=== PATIENT | male | born 1940 | race Caucasian/White ===

== ENCOUNTER 2018-09-09 00:45 | Outpatient (CLI) | payer MEDICARE, OTHER, SELFPAY ==
--- NOTE | 2018-09-09 08:30 | DI.MRI_ITS ---
SYMPTOM/DIAGNOSIS: LT CERVICALGIA, CHRONIC NECK PAIN CERVICAL SPINE MRI: Routine noncontrast examination. Comparison is made with 11/15/14. There is normal signal in the spinal cord. No evidence of tonsillar ectopia is seen. At C 7-T 1, there is no focal disc herniation, central spinal canal or significant neural foraminal stenosis. At C 6-7, there are mild degenerative changes of the uncovertebral joints bilaterally resulting in mild narrowing of the neural foramen bilaterally. No focal disc herniation or central spinal canal stenosis is seen. At C 5-6, there is mild prominence of the osteophyte disc complex with effacement of the anterior subarachnoid space. There are hypertrophic changes of the uncovertebral joints bilaterally causing moderate right and mild to moderate left neural foraminal stenosis. At C 4-5, there is prominence of the osteophyte disc complex effacing the anterior subarachnoid space causing mild flattening of the spinal cord. There is normal signal in the spinal cord. There are degenerative changes of the uncovertebral joints resulting in mild narrowing of the neural foramen, left greater than right. At C 3-4, there are hypertrophic changes of the uncovertebral joints on the left causing moderately severe left neural foraminal stenosis. No significant right neural foraminal stenosis or central spinal canal stenosis is seen. C 2-3 shows no focal disc herniation, central spinal canal or significant neural foraminal stenosis. Marrow signal is within normal limits. 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
== END 2018-09-09 01:05 ==
PROVIDERS: PCP Family Medicine; Visit Provider Nurse Practitioner Family
DX: M54.2 Cervicalgia (principal); M47.812 Spondylosis without myelopathy or radiculopathy, cervical region; M48.02 Spinal stenosis, cervical region
CPT/HCPCS: 72141

== ENCOUNTER 2018-09-16 09:30 | Outpatient (CLI) | payer MEDICARE, OTHER, SELFPAY ==
--- NOTE | 2018-09-16 06:00 | DI.RAD_ITS ---
SYMPTOM/DIAGNOSIS: CERVICAL RADICULOPATHY. C-ARM FLUOROSCOPY CERVICAL SPINE: Fluoroscopy Time: 53.5 sec Fluoroscopy was provided for guidance of Pain Clinic injection. Please see procedure note for details.
[2018-09-16 09:34] VITALS: BP 141/78; PULSE 72; RESP 18; TEMP 36.1; O2SAT 98
--- NOTE | 2018-09-16 10:30 | PDOC.PAIN ---
Pain Clinic Procedure Note Current Active Problems Problem Status Onset Cervical radiculitis Acute Cervical Epidural Steroid Injection NICK Barnett RAI has been referred to the [facility] for cervical epidural steroid injection. COMMENTS: He has had this procedure twice before (07/23/17 and 07/26/2016) with excellent results. RAI was interviewed and the medical record reviewed. There were no medical, pharmacologic, radiographic or other structural contraindications to attempting fluoroscopically guided epidural steroid injection. Risks and expected side effects as well as potential benefit of the procedure were reviewed with RAI , and RAI voiced concerns addressed. The printed consent form was signed and witnessed. Standard time-out procedure was performed. The patient was placed in the prone position on the fluoroscopy table and automated blood pressure cuff and pulse oximeter applied. The skin entry point for entering the epidural space by a midline C7-T1 interlaminar approach was identified under fluoroscopy and marked. Following thorough Chlorhexadine preparation of the skin and draping and 1% lidocaine infiltration of the skin entry point and subcutaneous tissues, an 18 gauge Tuohy needle was placed under fluoroscopic guidance and with loss of resistance technique into the C7-T1 epidural space. Upon needle placement and loss of resistance there were no paresthesiae or return of blood or CSF through the needle. A total of 4 cc of Omnipaque 240 was injected with clear epidural spread in the A/P, lateral and oblique views. He had no clear loss of resistence and I did have to feel my way down to the epidural space with the use of the Omnipaque. This required the use of far more Omnipaque and uncharacteristic AP and lateral images. 15 mg of preservative free Dexomethasone was injected with no unusual discomfort expressed by RAI. This was flushed with 1 cc of normal saline. The needle was removed without difficulty. RAI 's vital signs were stable throughout the procedure and were as recorded in the docflowsheet by the nursing staff. Follow up plans and appointments were discussed with the RAI. Post procedure instruction was given as documented in nursing documentation and having met discharge criteria, RAI was discharged from the [facility]. COMMENTS: This procedure can be completed up to 3 times per 12 months if this is helpful. I did also give him the Treat your own neck book to help him with neck exercises at home. CC: Analia Deras
[2018-09-16] MEDS: Dexamethasone Sod. Phos./Pres-Free 10 MG/ML VIAL IJ (10:44)
[2018-09-16] MEDS: Omnipaque 240 MG/ML 50 ML BTL IJ (10:44)
[2018-09-16 10:45] VITALS: BP 128/71; PULSE 61; RESP 18; O2SAT 99
== END 2018-09-16 09:50 ==
PROVIDERS: PCP Family Medicine; Visit Provider Preventive Medicine Occupational Medicine
DX: M54.12 Radiculopathy, cervical region (principal)
CPT/HCPCS: 62321; 72040; Q9967

== ENCOUNTER 2018-12-05 11:01 | Outpatient (REF) | payer MEDICARE, SELFPAY ==
[2018-12-05 12:20] LABS: Anion Gap 7.7 mmol/L (3-11); BUN 22 mg/dL (7-18); CO2 27.3 mmol/L (21.0-32.0); CREATININE 1.15 mg/dL (0.70-1.30); Chloride 104 mmol/L (98-107); Glucose 93 mg/dL (70-100); Potassium 4.8 mmol/L (3.5-5.1); Sodium 139 mmol/L (136-145)
[2018-12-08 10:56] LABS: PSA, Screening <0.1 ng/ml (0-6.5)
== END 2018-12-05 11:21 ==
LOC: NCHCN 11:01
PROVIDERS: PCP Family Medicine; Visit Provider Family Medicine
DX: M54.5 Low back pain (principal); Z12.5 Encounter for screening for malignant neoplasm of prostate; Z79.899 Other long term (current) drug therapy
CPT/HCPCS: 80048; 84153

== ENCOUNTER 2019-05-21 12:42 | Outpatient (REF) | payer MEDICARE, SELFPAY ==
[2019-05-22 08:32] LABS: PSA, Diagnostic <0.1 ng/ml (0-6.5)
== END 2019-05-21 13:02 ==
LOC: NCHCN 12:42
PROVIDERS: PCP Family Medicine; Visit Provider Family Medicine
DX: Z85.46 Personal history of malignant neoplasm of prostate (principal)
CPT/HCPCS: 84153

== ENCOUNTER 2019-06-09 01:20 | Outpatient (CLI) | payer MEDICARE, SELFPAY ==
--- NOTE | 2019-06-09 07:29 | DI.US_ITS ---
EXAM: US AAA SCREENING CLINICAL HISTORY: SCREENING FOR AAA, FORMER SMOKER,Z87.891 TECHNIQUE: Ultrasound performed using standard protocol. COMPARISON: No exams were available for comparison FINDINGS: Calcification is seen along the pinto of the the aorta. The maximum diameter is 2.8 cm proximally. No aneurysm is seen. The iliac arteries measure 1.3 cm. No ascites is seen. IMPRESSION: No evidence of abdominal aortic aneurysm.
== END 2019-06-09 01:40 ==
PROVIDERS: PCP Family Medicine; Visit Provider Family Medicine
DX: Z13.6 Encounter for screening for cardiovascular disorders (principal); Z87.891 Personal history of nicotine dependence; I70.0 Atherosclerosis of aorta
CPT/HCPCS: 76706

== ENCOUNTER 2020-01-13 13:07 | Emergency (ER) | payer MEDICARE, SELFPAY ==
--- NOTE | 2020-01-13 13:09 | W.ED.GENAD ---
Discharge Plan Disposition Patient Disposition: HOME Condition: Good Discharge Details Chief Complaint: Laceration Clinical Impression: Hand laceration Primary Care Provider: Analia Deras ED Provider: Theresa Almeida Home Meds and New Rx's Prescriptions: Continued hydrocodone-acetaminophen 1 TAB tablet 1 tab PO . Q6HR PRN PRNRF: 0 lansoprazole 30 MG capsule,delayed release(DR/EC) 1 tab PO DAILY RF: 0 gabapentin 300 MG capsule 1 tab PO HS RF: 0 Discharge Instructions Instructions: Laceration (ED) Additional Instructions: Keep wound clean, dry, covered. Please keep current dressing on for the next 24 hours. After that time, please wear gloves when appropriate and first apply Band-Aid. Monitor for signs of infection getting redness, warmth, drainage, increased pain, fever/chills. If you develop these or other new/worsening symptoms please seek care urgently once again. Please return in 10 to 12 days for suture removal. Tetanus was updated today. Referrals: Analia Deras MD [Primary Care Provider] - Discharge Data Discharge Date/Time-TO BE ENTERED AT DEPARTURE: 01/13/20 14:09 Medical Decision Making Patient is a pleasant 79 year old D male presenting today with c/c of left hand laceration. 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 Tetanus is out dated, we will update this today. He denies other injury at the time of the incidence. He denies numbness/tingling. No change in strength. Nursing staff reports that when patient came in they noted fairly significant venous bleeding and hematoma to which a pressure dressing was applied. When I examined the hand, the wound appeared to be improved. No active bleeding at the time of exam. Slight swelling but this sounds to have come down after pressure dressing applications. On exam, patient hsa a 4cm laceration in the sub Q tissue. No FB or debris noted. Full ROM, no ligamentous injury noted, able to extend well in all digits. Sensation intact. We discussed risks/benefits and expected procedural steps involved in clusure. He voices understanding and wishes to proceed. Please see procedure note. Patient tolerated this well. Wound explored to base in bloodless field with no FB or debris noted. Wound edges easily reapproximated, closed with #2 horizontal mattress stitches. Patient tolerated this well. Dressing applied. Patient and i discussed wound care in depth. He was given return precautions. In particular, we discussed signs of infection and what to do if bleeding recurs. He will return in 10-12 days for suture removal. All questions and concerns were addressed, he is in agreement wiht this plan. HPI General Mode of arrival: ambulatory. Date/Time Provider Initiated Documentation: 01/13/20 13:09. Limitations to Documentation: no limitations. Information obtained by: patient and RN notes reviewed. History of Present Illness 79 year old M presents to the emergency department with the chief complaint of laceratio left hand, described as mild, and is localized to the left and upper extremity. Patient reports no radiation. Patient started experiencing this hour(s) (1) and it has been constant. No relieving factors improve symptom(s), (denies any pain, states bleeding has persisted) No exacerbating factors reported . Patient notes no other symptoms.. Patient did receive the following treatments prior to arrival, none Related Data Home Medications Medication Instructions Recorded Confirmed gabapentin 1 tab PO HS 12/22/14 01/13/20 hydrocodone-acetaminophen 1 tab PO . Q6HR PRN PRN 12/22/14 01/13/20 lansoprazole 1 tab PO DAILY 12/22/14 01/13/20 Allergies Allergy/AdvReac Type Severity Reaction Status Date / Time Sulfa (Sulfonamide AdvReac Intermediate Hives Unverified 01/13/20 13:15 Antibiotics) Review of Systems Constitutional Constitutional: Reports as per HPI, Denies chills and Denies fever(s) Musculoskeletal Musculoskeletal: Reports as per HPI Integumentary/Breasts Skin/Breast: Reports as per HPI Neurologic Neurologic: Reports as per HPI, Denies sensory deficit and Denies paresthesias FOR[facility]LY [facility], [facility] Medical History (Updated 01/13/20 @ 13:53 by VIOLA Rojas) Alcohol abuse, in remission (Chronic) Cerumen impaction (Acute) Chronic low back pain (Chronic) Erectile dysfunction (Chronic) GERD (gastroesophageal reflux disease) (Chronic) Hammer toe of left foot (Chronic) Hyperlipidemia (Chronic) Neck pain, chronic (Chronic) Personal history of prostate cancer (Chronic) Sciatica, left side (Chronic) Social History Smoking/Tobacco Use Status: Never Alcohol Intake: never Drug use: Never Substance use type: does not use Do you feel safe at home: Yes Exam Const General: cooperative, healthy appearing, comfortable, no acute distress and well developed Nutritional Appearance: average body habitus and well nourished Orientation: alert and awake Resp Effort & Inspection: normal respiratory effort, able to speak in complete sentences and no respiratory distress Cardio Rate: regular rate Rhythm: regular rhythm Skin Trauma: laceration (dorsal left hand) Neuro General: patient alert and patient awake Cognition: normal cognition Speech: speech normal Gait: normal gait Sensory Exam: no sensory deficits noted Extrem Hand/finger images: 1. 4cm laceration into the subQ tissue. Pressure dressing had been applied by nursing staff, this seems to have worked well I stopping the bleeding. He has full ROM. No ligamentous damage noted on exam. Brisk capillary refill. No FB or debris noted in wound. Deep structures are intact. Psych Appearance: grossly normal and well kempt Mental Status: mental status grossly normal Speech and Movement: speech and movement normal Procedures Laceration Laceration 1: Site: hand Side (If applicable): left Size (cm): 4 Description: linear Depth: simple, single layer Local Anesthetic: Lidocaine 1% and with Epi Amount of anesthesia used (mL): 4 Pre-repair: wound explored, irrigated extensively and deep structures intact Skin layer closed with: nylon Size (cm): 5-0 Number of sutures: 2 Technique: horizontal mattress
[2020-01-13 13:11] VITALS: BP 126/77; PULSE 78; RESP 14; TEMP 36.7; O2SAT 96
[2020-01-13 14:05] VITALS: BP 127/81; PULSE 78; RESP 16; TEMP 36.7; O2SAT 95
== END 2020-01-13 14:09 | disposition home or self-care (01) ==
PROVIDERS: Emergency Provider Physician Assistant; PCP Family Medicine
DX: S61.412A Laceration without foreign body of left hand, initial encounter (principal); W28.XXXA Contact with powered lawn mower, initial encounter
CPT/HCPCS: 12002; 90471

== ENCOUNTER 2020-01-26 08:28 | Emergency (ER) | payer MEDICARE, SELFPAY ==
[2020-01-26 08:32] VITALS: BP 141/77; PULSE 72; RESP 16; TEMP 36.7; O2SAT 99
--- NOTE | 2020-01-26 08:38 | W.ED.GENAD ---
Discharge Plan Disposition Patient Disposition: HOME Condition: Improving Discharge Details Chief Complaint: SutureRem Clinical Impression: Encounter for removal of sutures Primary Care Provider: Analia Deras ED Provider: Jonathon Boyce Home Meds and New Rx's Prescriptions: Continued hydrocodone-acetaminophen 1 TAB tablet 1 tab PO . Q6HR PRN PRNRF: 0 lansoprazole 30 MG capsule,delayed release(DR/EC) 1 tab PO DAILY RF: 0 gabapentin 300 MG capsule 1 tab PO HS RF: 0 Discharge Instructions Additional Instructions: Return for any acute concerns. Resume normal routine and activities. Continue your regular medications. Steri-Strips will slowly curl and wear off over the next 3 to 7 days time. Medical Decision Making 79-year-old male presents for uneventful suture removal x2 in left hand laceration that is healed nicely since being seen on January 12. He is stable for discharge home at this time. HPI General Mode of arrival: ambulatory. Date/Time Provider Initiated Documentation: 01/26/20 08:32. Limitations to Documentation: no limitations. Information obtained by: patient. History of Present Illness 79 year old M presents to the emergency department with the chief complaint of Left hand suture removal, and is localized to the left and upper extremity. Patient did receive the following treatments prior to arrival, none Related Data Home Medications Medication Instructions Recorded Confirmed gabapentin 1 tab PO HS 12/22/14 01/26/20 hydrocodone-acetaminophen 1 tab PO . Q6HR PRN PRN 12/22/14 01/26/20 lansoprazole 1 tab PO DAILY 12/22/14 01/26/20 Allergies Allergy/AdvReac Type Severity Reaction Status Date / Time Sulfa (Sulfonamide AdvReac Intermediate Hives Unverified 01/26/20 08:34 Antibiotics) General Stated Complaint: SutureRem TUNDE: 5 Review of Systems Narrative: No other complaints. REPLACED BY [facility] Medical History (Updated 01/26/20 @ 08:38 by Jonathon Boyce MD) Alcohol abuse, in remission (Chronic) Cerumen impaction (Acute) Chronic low back pain (Chronic) Erectile dysfunction (Chronic) GERD (gastroesophageal reflux disease) (Chronic) Hammer toe of left foot (Chronic) Hyperlipidemia (Chronic) Neck pain, chronic (Chronic) Personal history of prostate cancer (Chronic) Sciatica, left side (Chronic) Social History Smoking/Tobacco Use Status: Never Alcohol Intake: never Drug use: Never Substance use type: does not use Do you feel safe at home: Yes Exam Narrative Exam Narrative: Awake alert and in no acute distress. The left hand has 2 horizontal mattress sutures, a well-healed wound, no surrounding erythema or fluctuance, it is nontender. Course Vital Signs Vital signs: Vital Signs Temperature 36.7 C 01/26/20 08:32 Pulse 72 01/26/20 08:32 Respiratory Rate 16 01/26/20 08:32 Blood Pressure 141/77 H 01/26/20 08:32 Pulse Oximetry 99 01/26/20 08:32 Temperature 36.7 C 01/26/20 08:32 Temperature Source Skin 01/26/20 08:32 Pulse 72 01/26/20 08:32 Respiratory Rate 16 01/26/20 08:32 Respiratory Effort Non-Labored 01/26/20 08:32 Blood Pressure 141/77 H 01/26/20 08:32 Blood Pressure Position Sitting 01/26/20 08:32 Pulse Oximetry 99 01/26/20 08:32 Oxygen Delivery Method Room Air 01/26/20 08:32 Oxygen Flow Rate 0 01/26/20 08:32 Pain Level 0 01/26/20 08:32
== END 2020-01-26 08:48 | disposition home or self-care (01) ==
PROVIDERS: Emergency Provider Emergency Medicine; PCP Family Medicine
DX: Z48.02 Encounter for removal of sutures (principal); S61.412D Laceration without foreign body of left hand, subsequent encounter; W28.XXXD Contact with powered lawn mower, subsequent encounter

== ENCOUNTER 2020-08-01 20:55 | Outpatient (REF) | payer MEDICARE, SELFPAY ==
[2020-08-02 17:44] LABS: PSA, Screening <0.1 ng/mL (0.0-6.5)
== END 2020-08-01 21:15 ==
LOC: NCHCN 20:55
PROVIDERS: PCP Family Medicine; Visit Provider Family Medicine
DX: Z85.46 Personal history of malignant neoplasm of prostate (principal)
CPT/HCPCS: 84153

== ENCOUNTER 2021-02-02 00:37 | Outpatient (CLI) | payer MEDICARE, SELFPAY ==
--- NOTE | 2021-02-02 | DI.MRI_ITS ---
Exam(s) MR BRAIN WO EXAM: MR BRAIN WO CLINICAL HISTORY: H/O TIA,Z86.73,,TIA,G45.9 TECHNIQUE: Multiplanar multisequence MRI of the brain was performed. COMPARISON: No exams were available for comparison FINDINGS: CEREBRAL PARENCHYMA: There is no evidence of intracranial hemorrhage, mass effect, or shift of midline structures. There are no extra-axial fluid collections. Ventricles are not enlarged or shifted. There is no significant focal signal abnormality in the cerebellar hemispheres nor within the pal, m idbrain, and thalami. There are few small foci of periventricular white matter signal abnormality which are probably consis tent with chronic small vessel ischemic changes. There is no significant focal signal abnormality evident on diffusion imaging to suggest acute ischem ic event. PITUITARY GLAND: No mass nor parasellar abnormality. No obvious abnormality in the cavernous sinuses. FLOW VOIDS: The expected flow void are noted. No evidence of obvious aneurysm nor obvious vascular ma lformation. PARANASAL SINUSES: The visualized paranasal sinuses appear unremarkable. No obvious finding ORBITS: No obvious findings. IMPRESSION: No acute intracranial findings on this noninfused MRI scan of the brain. There are a few subcentimeter foci of signal abnormality which are most probably consistent with acid condenser minh small vessel disease. There is no evidence of acute ischemic infarct. DATA REPOSITORY:
--- NOTE | 2021-02-02 | DI.MRI_ITS ---
Exam(s) MR ANGIO NECK WO CLINICAL HISTORY: TIA,G45,9. TECHNIQUE: Magnetic resonance angiography of the vessels in the neck and intracranial arteries was p erformed on 1.5 shalom unit using [id number] sequence CONTRAST MATERIAL: None COMPARISON: None. FINDINGS: AORTIC ARCH: Bovine configuration. No obvious tight stenosis at the origin the great vessels off of the aortic arch. ANTERIOR CIRCULATION: Both common carotid arteries ascend with normal luminal diameters. No evidence of significant stenosis at the level the carotid bifurcations and proximal internal carotid arteries and the internal carotid arteries are demonstrated to be patent in both sides the neck as well as wi thin the skull base-carotid canals. POSTERIOR CIRCULATION: The vertebral arteries originated conventional fashion off of the subclavian a rteries. Vertebral arteries are both patent within the foramen transversarium with no evidence of in traluminal thrombus nor dissection. The left vertebral artery is dominant. Both vertebral arteries contribute to the formation of the basilar artery at the skull base. IMPRESSION: 1. Patent carotid arteries in the neck. No evidence of significant stenosis at the level the carotid bifurcations and proximal internal carotid arteries. No ulcerated plaque evident 2. Patent vertebral arteries in the neck. No evidence of intraluminal thrombosis nor vertebral arter y dissection. DATA REPOSITORY:
--- NOTE | 2021-02-02 | DI.MRI_ITS ---
Exam(s) MR ANGIO BRAIN WO EXAM: MR ANGIO BRAIN WO CLINICAL HISTORY: TIA,G45.9 TECHNIQUE: MR angiography of the brain was performed on 1.5 shalom unit using [id number] sequence . No IV contrast. COMPARISON: No exams were available for comparison FINDINGS: ANTERIOR CIRCULATION: Both internal carotid arteries are patent in the skull base-carotid canals as w ell as within the cavernous sinuses. Both ophthalmic arteries appear patent and originated in conven tional fashion off of the intracavernous internal carotid arteries. The supraclinoid aspects of thes e vessels are patent and nonaneurysmal. both middle cerebral arteries are patent without evidence of intraluminal thrombus and no evidence of aneurysms. both a1 segments are patent, with the left a1 s egment being dominant. anterior cerebral arteries are patent. there is no evidence of aneurysm at t he level of the anterior communicating artery. POSTERIOR CIRCULATION: At the skull base both vertebral arteries contribute to the formation of the basilar artery. Left ve rtebral artery is dominant. Vertebral arteries give off the posterior inferior cerebellar arteries a t the skull base. The basilar artery ascends to the right of midline with normal luminal diameter an d no evidence of intraluminal thrombus nor dissection. Distally it gives off the bilateral superior cerebellar arteries and above this level terminates as patent bilateral posterior cerebral arteries. There is a posterior communicating artery noted on the left side of the hwdjur-pt-Dkxhsj. There is no aneurysm of the tip of the basilar artery nor elsewhere in the thztqy-ca-Txvdjo. IMPRESSION: 1. Patent intracranial arteries as described above. The left A1 segment is dominant. The right A1 segment is significantly thinner but does exhibit flow signal. 2. There is a posterior communicating artery on the left side of the moggpt-mf-Ramvhl noted. 3. No aneurysms evident. DATA REPOSITORY:
== END 2021-02-02 00:57 ==
PROVIDERS: PCP Family Medicine; Visit Provider Family Medicine
DX: G45.9 Transient cerebral ischemic attack, unspecified (principal)
CPT/HCPCS: 70544; 70547; 70551

== ENCOUNTER → 2021-04-19 13:31 | Outpatient (BNVA) | payer MEDICARE, SELFPAY | PROVIDERS: PCP Family Medicine; Referring Provider Family Medicine; Visit Provider Psychiatry & Neurology Neurology | DX: G25.0 Essential tremor (principal); R47.1 Dysarthria and anarthria; R29.818 Other symptoms and signs involving the nervous system | CPT/HCPCS: 99215 ==

== ENCOUNTER 2021-07-07 14:09 | Outpatient (REF) | payer MEDICARE, SELFPAY ==
[2021-07-07 15:16] LABS: HCT 41.7 % (40.0-50.0); HGB 13.4 g/dL (13.5-17.5); MCH 29.3 pg (27.0-33.0); MCHC 32.1 % (32.0-36.0); MPV 11.1 fL (8.0-11.0); Platelet Count 202 10^3/uL (130-400); RBC 4.58 10^6/uL (4.36-5.78); RDW 12.9 % (11.8-14.1); RDW-SD 42.6 fL; WBC 5.09 10^3/uL (4.4-10.8)
[2021-07-07 15:52] LABS: ALT 21 U/L (16-63); AST 17 U/L (15-37); Albumin 3.9 g/dL (3.4-5.0); Alkaline Phosphatase 79 U/L (46-116); Anion Gap 7.4 mmol/L (3-11); BUN 20 mg/dL (7-18); Bilirubin, Total 0.5 mg/dL (0.2-1.0); CO2 28.6 mmol/L (21.0-32.0); CREATININE 1.1 mg/dL (0.70-1.30); Calcium 8.8 mg/dL (8.5-10.1); Chloride 106 mmol/L (98-107); Glucose 94 mg/dL (74-106); Lipase 96 U/L (73-393); Potassium 4.8 mmol/L (3.5-5.1); Sodium 142 mmol/L (136-145); TSH (W/Ref FT4) 1.87 uIU/mL (0.36-3.74); Total Protein 6.6 g/dL (6.4-8.2)
[2021-07-07 16:43] LABS: Vitamin B12 271 pg/mL (193-986)
[2021-07-07 22:53] LABS: PSA, Screening <0.1 ng/mL (0.0-6.5)
== END 2021-07-07 14:10 | disposition home or self-care (01) ==
LOC: NCHCN 14:09
PROVIDERS: PCP Family Medicine; Visit Provider Family Medicine
DX: R63.4 Abnormal weight loss (principal); Z85.46 Personal history of malignant neoplasm of prostate; R10.12 Left upper quadrant pain; Z12.5 Encounter for screening for malignant neoplasm of prostate
CPT/HCPCS: 80053; 83690; 84153; 85027; 82607; 84443

== ENCOUNTER 2021-07-25 00:12 | Outpatient (CLI) | payer MEDICARE, SELFPAY ==
[2021-07-25] MEDS: Omnipaque 350 MG/ML 50 ML BTL PO (08:08)
[2021-07-25] MEDS: Breeza Beverage 473 ML BTL PO ×2 (08:08→08:09)
--- NOTE | 2021-07-25 09:00 | DI.CT_ITS ---
Exam(s) CT ABDOMEN PELVIS W EXAM: CT ABDOMEN PELVIS W CLINICAL HISTORY: LUQ ABD PAIN R10.12, WEIGHT LOSS R63.4 TECHNIQUE: Imaging Protocol: Axial computed tomography images with coronal and sagittal reformatted images were created and reviewed CONTRAST MATERIAL: Intravenous: Omnipaque 350 Contrast volume:100 mL. Oral: Yes COMPARISON: No exams were available for comparison FINDINGS: The examination is limited due to patient motion artifact. ABDOMEN: Lung Bases: There is scarring or atelectasis in the lung bases. Liver: Normal density. No measurable mass. There is focal fatty infiltration near the delete round li gament. Portal, Superior Mesenteric, and Splenic Veins: Unremarkable. Gallbladder and Biliary Tract: No radiodense calculus or dilation. Pancreas: Normal density, no abnormal calcifications or inflammatory process. Spleen: Normal. Adrenals: Bilateral adrenal nodularity. Likely reflecting adrenal adenomas. Kidneys: Normal size, contour and axis. No radiodense stones or obstructive uropathy. No masses seen. Abdominal Aorta: Abdominal portion non-dilated. Atherosclerosis. Bowel: No obstruction or bowel wall thickening. No evidence of appendicitis. There is a moderate jorden unt of stool throughout the colon which may represent constipation. There are few scattered diverticu la in the sigmoid colon, but no evidence of acute diverticulitis. Peritoneal Cavity: There is a trace amount of ascites in the pelvis. No free air. Lymph Nodes: Within normal limits. Bones: Within normal limits for the patient's age. Soft Tissues: Bilateral gynecomastia. There is soft tissue in the left inguinal region, suggestive of a prior left inguinal hernia repair. PELVIS: Bladder: Symmetric distention, no gross wall thickening. Reproductive Organs: Unremarkable as visualized. Lymph Nodes: Within normal limits. Bones: Within normal limits for the patient's age. IMPRESSION: 1. No evidence of an abdominal or pelvic mass or adenopathy. 2. Trace amount of free ascites in the pelvis. 3. Sigmoid diverticulosis, but no evidence of acute diverticulitis. 4. Findings suggestive of constipation. RADIATION DOSE DELIVERED: 1,205.14mGy.cm Total DLP DATA REPOSITORY: All CT scans at this facility are submitted to the National Radiology Data Registry (NRDR) Dose Index Registry (DIR) with the [employer] (ACR). RADIATION OPTIMIZATION: All CT scans at this facility use at least one of these dose optimization te chniques: automated exposure control; mA and/or kV adjustment per patient size (includes targeted exa ms where dose is matched to clinical indication); or iterative reconstruction.
[2021-07-25] MEDS: Omnipaque 350 MG/ML 100 ML BTL IJ (09:11)
[2021-07-25] MEDS: Normal Saline Flush 10 ML SYR IVP (09:12)
== END 2021-07-25 00:32 ==
PROVIDERS: PCP Family Medicine; Visit Provider Family Medicine
DX: R10.12 Left upper quadrant pain (principal); R63.4 Abnormal weight loss; K57.30 Diverticulosis of large intestine without perforation or abscess without bleeding
CPT/HCPCS: 74177; J3490; Q9967

== ENCOUNTER → 2022-01-30 01:29 | Outpatient (CLI) | payer MEDICARE, SELFPAY ==
--- NOTE | 2022-01-30 | DI.NM_ITS ---
APPROVED REPORT Exam: Exercise Treadmill Patient Location: Out-Patient Room/Bed: Stress Nurse: MARYLOU Alas Ordering Provider:SOFÍA ADKINS, Contact Number: [phone] BMI: 23.05 Baseline Rhythm: Sinus Rhythm Comment: flipped T wave aVL Indications: Exertional CP Medical History Medical History: ETOH, ED, GERD, HLD Cardiac Medications: Lansoprazole, ASA Allergies: Sulfa Cardiac Risk Factors: HLD Previous Cardiac Procedures: None Pretest Chest Pain Characteristics: None Exercise History: Sedentary Physical Disabilities: None Lung Sounds: Clear to auscultation Heart Sounds: Regular Stress Test Details Test: Exercise stress testing was performed using a Erick protocol. Nuclear Acquisition: Rest Tc-99m/Stress Tc-99m 1 day Rest Isotope: Tc-99m Sestamibi. Dose: 9.7 Date: 01/30/2022 Injection Time: 0915 Stress Isotope: Tc-99m Sestamibi. Dose: 33 Date: 01/30/2022 Injection Time: 1015 HR Resting HR Supine: 63 bpm Max Heart Rate (APMHR): 141.254928 bpm Resting HR Standin bpm Target HR (85% APMHR): 119.551677 bpm Max HR Achieved: 129 bpm % of APMHR: 91.49 Recovery HR: 73 bpm HR response to stress: Normal HR response to stress BP Resting BP Supine: 152/80 mmHg Resting BP Standin/78 mmHg Max BP: 190/76 mmHg Recovery BP: 152/78 mmHg BP response to stress: Normal blood pressure response to stress. ECG Resting ECG: Sinus Rhythm Ectopy: none Comment: flipped T wave aVL Stress ECG: Sinus Rhythm, Sinus Tachycardia ST Change: No significant ST segment changes noted Arrhythmia: VPC's Comment: rare PVC's Recovery ECG: Sinus Rhythm Recovery ST Change: No significant ST segment changes noted Recovery Arrhythmia: VPC Clinical Reason for Termination: Fatigue Stress Symptoms: none Exercise duration: 4 min59 sec Highest Stage Reached: Stage 2: 2.5 mph at 12% grade. Exercise capacity: 7.02 METs Angina Score: None [place] Treadmill Score: 4.6 Rate Pressure Product: [id number] Stress ECG Conclusion 1. The resting electrocardiogram was within normal limits 2. Patient exercised on the Erick protocol and completed a workload of 7.02 METS 3. Normal heart rate and blood pressure response to exercise. The patient achieved 91% of predicted heart rate for age 4. There was no electrocardiographic evidence of myocardial ischemia 5. Rare PVCs were noted 6. See MPI report [place] Treadmill Score is 4.6 which is Moderate risk. Stress Test Summary STAGE Time (mins) Speed (mph) Grade (%) HR BP SYMPTOMS METS Supine 63 152/80 Standing 82 130/78 1 3 1.7 10 108 168/78 4.6 1 min recovery 107 190/76 3 min recovery 73 168/82 6 min recovery 73 152/78 MPI Conclusion Normal myocardial perfusion. There is no ischemia or prior infarction EF 60%, normal wall motion Radiologist Interpretation Radiologist agrees with Resource Technician's Interpretation. Radiologist Interpretation by: Lorenzo Salmeron MD Interpretation Date/Time: 02/01/2022 08:15:07
== END ==
PROVIDERS: PCP Family Medicine; Visit Provider Family Medicine
DX: R07.89 Other chest pain (principal)
CPT/HCPCS: 78452; 93016; 93018; 93017

== ENCOUNTER 2022-04-11 15:58 | Outpatient (REF) | payer MEDICARE, SELFPAY ==
[2022-04-11 16:35] LABS: HGB 14.8 g/dL (13.5-17.5); MCH 29.7 pg (27.0-33.0); MCHC 33.6 % (32.0-36.0); MCV 88 fL (80-95); MPV 11.4 fL (8.0-11.0); Platelet Count 222 10^3/uL (130-400); RBC 4.99 10^6/uL (4.36-5.78); RDW 13.2 % (11.8-14.1); RDW-SD 42.5 fL
[2022-04-11 17:14] LABS: Ferritin 81 ng/mL (26-388); TSH (W/Ref FT4) 2.98 uIU/mL (0.36-3.74)
== END 2022-04-11 15:59 | disposition home or self-care (01) ==
LOC: NCHCN 15:58
PROVIDERS: PCP Family Medicine; Visit Provider Family Medicine
DX: D64.9 Anemia, unspecified (principal)
CPT/HCPCS: 85027; 82728; 84443

== ENCOUNTER 2022-07-11 13:43 | Outpatient (REF) | payer MEDICARE, SELFPAY ==
[2022-07-11 15:17] LABS: Folate 6.5 ng/mL (8.6-20.0); Vitamin B12 1042 pg/mL (193-986)
[2022-07-12 09:42] LABS: PSA, Diagnostic <0.1 ng/mL (<=6.5)
[2022-07-13 11:30] LABS: Syphilis Serology (RPR) Negative (Negative)
== END 2022-07-11 13:44 | disposition home or self-care (01) ==
LOC: NCHCN 13:43
PROVIDERS: PCP Family Medicine; Visit Provider Family Medicine
DX: E53.8 Deficiency of other specified B group vitamins (principal); R41.3 Other amnesia; Z85.46 Personal history of malignant neoplasm of prostate
CPT/HCPCS: 82607; 82746; 84153; 86592

== ENCOUNTER 2023-03-13 09:24 | Outpatient (REF) | payer MEDICARE, SELFPAY ==
[2023-03-13 20:19] LABS: ALT 19 U/L (16-63); AST 18 U/L (15-37); Albumin 4.1 g/dL (3.4-5.0); Alkaline Phosphatase 76 U/L (46-116); Anion Gap 7.1 mmol/L (3-11); BUN 22 mg/dL (7-18); Bilirubin, Total 0.7 mg/dL (0.2-1.0); CO2 27.9 mmol/L (21.0-32.0); CREATININE 1.1 mg/dL (0.70-1.30); Calcium 9.1 mg/dL (8.5-10.1); Chloride 104 mmol/L (98-107); Estimated GFR 67.86 (mL/min/1.73m2); Glucose 100 mg/dL (74-106); Potassium 5.1 mmol/L (3.5-5.1); Sodium 139 mmol/L (136-145); Total Protein 6.9 g/dL (6.4-8.2); Vitamin B12 1079 pg/mL (193-986)
[2023-03-13 20:20] LABS: Folate > 20.0 ng/mL (8.6-20.0)
== END 2023-03-13 09:25 | disposition home or self-care (01) ==
LOC: NCHCN 09:24
PROVIDERS: PCP Family Medicine; Visit Provider Family Medicine
DX: R10.12 Left upper quadrant pain (principal); D51.9 Vitamin B12 deficiency anemia, unspecified; D52.9 Folate deficiency anemia, unspecified
CPT/HCPCS: 80053; 82607; 82746

== ENCOUNTER 2024-01-23 06:17 | Inpatient (IN) | payer MEDICARE, SELFPAY ==
[2024-01-23] VITALS (8 sets, daily range): BP systolic 113–160; BP diastolic 71–87; PULSE 83–111; RESP 16–22; TEMP 36.7–37.8; O2SAT 97–99
--- NOTE | 2024-01-23 06:15 | DI.CT_ITS ---
Exam(s) CT ABDOMEN PELVIS W EXAM: CT ABDOMEN PELVIS W CLINICAL HISTORY: gi bleeding. TECHNIQUE: Imaging Protocol: Axial computed tomography images with coronal and sagittal reformatted images were created and reviewed CONTRAST MATERIAL: Intravenous: Omnipaque-350 100cc Oral: None COMPARISON: CT CT ABDOMEN PELVIS W from 07/25/2021 FINDINGS: VISUALIZED LUNG BASES: No nodules nor pleural effusions evident. Elevated left hemidiaphragm again n oted. Bilateral gynecomastia again noted. ABDOMEN: LIVER: There are no focal hepatic lesions evident. No dilated intrahepatic ducts. GALLBLADDER/BILIARY: No obvious gallbladder pathology. CBD is not dilated. PANCREAS: No evidence of pancreatic mass nor dilatation of the pancreatic duct. SPLEEN: Spleen is not enlarged. No obvious intrasplenic lesions. Splenic and portal veins are paten t. ADRENALS: There are no significant adrenal masses. KIDNEYS:No cysts evident. No solid renal masses. No calculi nor hydronephrosis.. ABDOMINAL AORTA: Abdominal aorta is not enlarged. Celiac, SMA, and inferior mesenteric arteries are patent. LYMPH NODES:There is no retroperitoneal nor paraaortic adenopathy. ABDOMINAL WALL: No evidence of significant anterior abdominal wall nor inguinal hernia. GI: There is significant colitis pattern involving the colon at and distal to the splenic flexure. A lso involving the rectum. The colon wall is thickened-edematous to 1 cm thickness. Similar findings not seen in the right-side of the colon. There is some mild a spot-moderate ascites in the pelvis w hich is most probably related to the colitis. There is no evidence of small-bowel obstruction. PELVIS: GI: Appendix difficult to identify but no evidence of obvious acute appendicitis.No evidence of sigmo id diverticulitis. LYMPH NODES: There is no intrapelvic nor inguinal adenopathy. REPRODUCTIVE: Prostate gland is surgically absent. Seminal vesicles also not identified. URINARY BLADDER: There is some diffuse bladder wall thickening probably related to cystitis or under distension. OSSEOUS: No fractures and no significant blastic nor lytic osseous lesions. Sacroiliac joints unremarkable. IMPRESSION: 1. The main acute finding here is severe acute appearing colitis of the distal half of the colon incl uding the rectosigmoid. There is small-moderate amount of ascites in the pelvis which is most probab ly related to this. There is no evidence of bowel obstruction nor free air. No evidence of signific ant diverticular disease. 2. Prostate and seminal vesicles are surgically absent. 3. Bladder wall is diffusely thickened. Either related to under distension or cystitis. Called by myself to ER physician. RADIATION DOSE DELIVERED: 995.77mGy.cm Total DLP DATA REPOSITORY: All CT scans at this facility are submitted to the National Radiology Data Registry (NRDR) Dose Index Registry (DIR) with the [employer] (ACR). RADIATION OPTIMIZATION: All CT scans at this facility use at least one of these dose optimization te chniques: automated exposure control; mA and/or kV adjustment per patient size (includes targeted exa ms where dose is matched to clinical indication); or iterative reconstruction.
[2024-01-23 06:35] LABS: Abs Immature Grans 0.04 10^3/uL (0.0-0.06); Absolute Basophil Count 0.03 10^3/uL (0.0-0.2); Absolute Eosinophil Count 0.01 10^3/uL (0.0-0.7); Absolute Lymphocyte Count 0.95 10^3/uL (1.2-3.4); Basophils % 0.2 %; Eosinophils % 0.1 %; HGB 15.4 g/dL (13.5-17.5); Immature Grans % 0.3 %; Lymphocytes % 6.8 %; MCH 29.3 pg (27.0-33.0); MCHC 33.5 % (32.0-36.0); MCV 88 fL (80-95); MPV 10.5 fL (8.0-11.0); Monocytes % 6.3 %; Neutrophils % 86.3 %; Platelet Count 216 10^3/uL (130-400); RBC 5.26 10^6/uL (4.36-5.78); RDW 13.2 % (11.8-14.1); RDW-SD 42.6 fL; WBC 13.91 10^3/uL (4.4-10.8)
--- NOTE | 2024-01-23 06:35 | ED.GENADUL_ITS ---
Discharge Plan Discharge Details Chief Complaint: Abd Prob Clinical Impression: Acute GI bleeding Primary Care Provider: Analia Deras ED Provider: Stevo Hidalgo Home Meds and New Rx's Prescriptions: No Action aspirin 81 mg tablet 81 mg PO DAILY hydrocodone-acetaminophen 1 TAB tablet 1 tab PO . Q6HR PRN PRN lansoprazole 30 MG capsule,delayed release(DR/EC) 1 tab PO DAILY folic acid 1 mg tablet 1 mg PO DAILY Patient Comments: TAKE ONE TABLET BY MOUTH EVERY DAY HPI General Date/Time Provider Initiated Documentation: 01/23/24 06:20 . HPI Narrative: 83-year-old male with no significant past medical history who does take daily aspirin presents today for evaluation of bloody diarrhea. Patient states that at lunch yesterday he began feeling like he had to go to the bathroom, and then had a few episodes of diarrhea that were bright red and bloody. This continued throughout the rest of the day and the evening with the most recent being about an hour ago. He denies any recent foreign travel, drinking from ponds or streams, or antibiotic use. He had a colonoscopy 1 year ago at [facility] and this was unremarkable. He denies any history of GI bleed in the past. He also admits to mild abdominal achiness and pain has been going on today. He denies any vomiting. He does admit to some pain when having a bowel movement near his rectum. He denies any hard stool. No other complaints at this time. Related Data Home Medications Medication Instructions Recorded Confirmed hydrocodone 5 mg-acetaminophen 325 1 tab PO . Q6HR PRN PRN 12/22/14 01/23/24 mg tablet lansoprazole 30 mg capsule,delayed 1 tab PO DAILY 12/22/14 01/23/24 release aspirin 81 mg tablet 81 mg PO DAILY 02/01/21 01/23/24 folic acid 1 mg tablet 1 mg PO DAILY 01/23/24 01/23/24 Allergies Allergy/AdvReac Type Severity Reaction Status Date / Time Sulfa (Sulfonamide AdvReac Intermediate Hives Unverified 09/20/21 09:25 Antibiotics) General Stated Complaint: Abd Prob TUNDE: 3 Review of Systems All systems reviewed & are unremarkable except as noted in HPI and below Exam Narrative Exam Narrative: 1.Const: Well-nourished, Well-developed, appearing stated age 2.Eyes: PERRL, no conjunctival injection, and symmetrical lids. 3.ENT: Atraumatic external nose and ears. Moist MM. Neck: Symmetric, trachea midline, No thyromegaly. 4.CVS: +S1/S2, No murmurs or gallops. Peripheral pulses 2+ and equal in all extremities. Brisk capillary refill in all extremities. 5.RESP: Unlabored respiratory effort. Clear to auscultation bilaterally. No wheezes rales or rhonchi 6.GI: Soft, nondistended, no guarding or rebound. Mild tenderness throughout, especially in the mid abdominal region. Rectal exam was performed with female nurse at bedside. No gross blood at this time. No large hemorrhoids. 7.MSK: Normocephalic/Atraumatic, Extremities w/o deformity or ttp No cyanosis or clubbing, Normal movement of all extremities 8.Skin: Warm, Dry. No rashes or lesions. 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 Sensation grossly intact, no focal neurologic deficits. 10.Psych: (AAO) x3. Appropriate mood and affect Course Vital Signs Vital signs: Vital Signs Temperature 36.8 C 01/23/24 06:21 Pulse 111 H 01/23/24 06:21 Respiratory Rate 22 01/23/24 06:21 Blood Pressure 140/87 01/23/24 06:21 Pulse Oximetry 97 01/23/24 06:21 Temperature 36.7 C 01/23/24 06:26 Temperature Source Temporal Artery Scan 01/23/24 06:26 Pulse 100 H 01/23/24 06:26 Respiratory Rate 22 01/23/24 06:26 Respiratory Effort Normal, Non-Labored 01/23/24 06:26 Blood Pressure 140/87 01/23/24 06:21 Blood Pressure Position Sitting 01/23/24 06:26 Pulse Oximetry 97 01/23/24 06:26 Oxygen Delivery Method Room Air 01/23/24 06:26 Oxygen Flow Rate 0 01/23/24 06:21 Pain Level 3 01/23/24 06:26 Medical Decision Making 83-year-old male with no significant past medical history who does take daily aspirin presents today for evaluation of bloody diarrhea. Patient states that at lunch yesterday he began feeling like he had to go to the bathroom, and then had a few episodes of diarrhea that were bright red and bloody. This continued throughout the rest of the day and the evening with the most recent being about an hour ago. He denies any recent foreign travel, drinking from ponds or streams, or antibiotic use. He had a colonoscopy 1 year ago at [facility] and this was unremarkable. He denies any history of GI bleed in the past. He also admits to mild abdominal achiness and pain has been going on today. He denies any vomiting. He does admit to some pain when having a bowel movement near his rectum. He denies any hard stool. No other complaints at this time. Exam demonstrates well-appearing male, mild tachycardia, mild abdominal pain throughout. Rectal exam demonstrates no gross blood at this time. Differential includes diverticulitis, GI bleed from diverticulosis, colitis, less likely proctitis or hemorrhoid. We will type and screen, get a CT scan of the abdomen, gently rehydrate, give 20 of Protonix and 20 famotidine, monitor closely and reassess. 7:31 AM Laboratory workup has returned, white count slightly elevated at 13.9, platelets and hemoglobin are normal. Mild left shift with absolute neutrophil count of 12. Electrolytes normal, creatinine 1.5 with GFR 46. BUN 26. Bilirubin slightly elevated at 1.3 which is atypical for him. Pending CAT scan. Patient did have another bloody bowel movement with minimal stool which she describes as very dark in color, and large amount of bright red blood. Patient will be signed out to my colleague Dr. Islas for follow-up on imaging. Patient will likely benefit from admission. Quality:[facility] Health Related Social Needs: No Data to Display [facility] All Active Problems (Updated 01/23/24 @ 07:32 by Stevo Hidalgo DO) Acute GI bleeding (Acute) Dysarthria (Acute) Essential tremor (Acute) Cervical radiculitis (Acute) Medical History Achilles tendinitis, right leg Alcohol abuse, in remission Personal history of prostate cancer Erectile dysfunction GERD (gastroesophageal reflux disease) Chronic low back pain Sciatica, left side Hammer toe of left foot Hyperlipidemia Surgical History S/P TURP S/P hernia repair Social History (Reviewed 01/23/24 @ 06:38 by SUSANNAH Levine Smoking/Tobacco Use Status: Former Tobacco Use Smoking risk assessment performed?: Yes Alcohol Intake: former Drug use: Never Substance use type: does not use Household members: spouse Housing: house Number of Children: 2 number of grandchildren: 3 current occupation: Retired Pets and animals: No Current gender identity: male What is your relationship status?: Panel score (0-1 are the most socially isolated patients): 1 What type of physical activity do you participate in: walking Duration: 30-45 minutes/day Frequency: 1-2 times per week Seatbelt use: sometimes Do you feel safe at home: Yes Do you feel safe in your relationship?: Yes
[2024-01-23 06:36] LABS: Absolute Monocyte Count 0.88 10^3/uL (0.1-0.8)
[2024-01-23 06:50] LABS: PTT Activated 25.4 sec (23.6-32.8); Prothrombin Time 10.5 sec (9.1-11.1)
[2024-01-23] MEDS: Normal Saline 500 ML IV (06:50)
[2024-01-23] MEDS: Famotidine 20 MG/2 ML VIAL IVP (06:50)
[2024-01-23] MEDS: Pantoprazole 40 MG VIAL IVP (06:50)
[2024-01-23 06:52] LABS: ALT 26 U/L (16-63); AST 16 U/L (15-37); Albumin 4.1 g/dL (3.4-5.0); Alkaline Phosphatase 76 U/L (46-116); BUN 26 mg/dL (7-18); Bilirubin, Total 1.3 mg/dL (0.2-1.0); CREATININE 1.5 mg/dL (0.70-1.30); Calcium 9.1 mg/dL (8.5-10.1); Chloride 103 mmol/L (98-107); Estimated GFR 46.48 (mL/min/1.73m2); Glucose 142 mg/dL (74-106); Potassium 4.3 mmol/L (3.5-5.1); Sodium 140 mmol/L (136-145); Total Protein 7.5 g/dL (6.4-8.2)
[2024-01-23] MEDS: Normal Saline - Diluent 50 ML VIAL IJ (08:09)
[2024-01-23] MEDS: Omnipaque 350 MG/ML 500 ML BTL-Imaging package IJ (08:10)
--- NOTE | 2024-01-23 09:13 | ED.PROG_ITS ---
Date of service: 01/23/24 Time of Service: 09:13 Medical Decision Making Care was signed out by Dr. Hidalgo, please see his documentation regarding initial ED presentation course. Plan at signout was to follow-up on CT and reassess patient for disposition. CT of the abdomen pelvis was interpreted by radiology:1. The main acute finding here is severe acute appearing colitis of the distal half of the colon including the rectosigmoid. There is small-moderate amount of ascites in the pelvis which is most probably related to this. There is no evidence of bowel obstruction nor free air. No evidence of significant diverticular disease. 2. Prostate and seminal vesicles are surgically absent. 3. Bladder wall is diffusely thickened. Either related to under distension or cystitis. I spoke with Dr. Salmeron who notes SMA and JOAN patent. Does not appear ischemic. Patient reassessed and notes pain has improved. He continues to have bloody stool. Plan to hospitalize for further observation. Stool cultures pending. -- I spoke with Dr. Rodriguez, discussed ED presentation course, he will admit the patient. Lab Data Lab results reviewed: Yes I reviewed the patient's lab results. Labs: Laboratory Tests Range/Units 01/23/24 01/23/24 06:30 06:49 WBC (4.4-10.8) 10^3/uL 13.91 H RBC (4.36-5.78) 10^6/uL 5.26 Hgb (13.5-17.5) g/dL 15.4 Hct (40.0-50.0) % 46.0 MCV (80-95) fL 88 MCH (27.0-33.0) pg 29.3 MCHC (32.0-36.0) % 33.5 RDW (11.8-14.1) % 13.2 Plt Count (130-400) 10^3/uL 216 MPV (8.0-11.0) fL 10.5 Immature Gran % % 0.3 Neutrophils % % 86.3 Lymphocytes % % 6.8 Monocytes % % 6.3 Eosinophils % % 0.1 Basophils % % 0.2 Nucleated RBC % (0.0-0.3) % 0.0 Absolute Neutrophils (1.2-6.7) 10^3/uL 12.00 H Absolute Lymphocytes (1.2-3.4) 10^3/uL 0.95 L Absolute Monocytes (0.1-0.8) 10^3/uL 0.88 H Absolute Eosinophils (0.0-0.7) 10^3/uL 0.01 Absolute Basophils (0.0-0.2) 10^3/uL 0.03 PT (9.1-11.1) sec 10.5 INR (0.9-1.1) 1.0 APTT (23.6-32.8) sec 25.4 Sodium (136-145) mmol/L 140 Potassium (3.5-5.1) mmol/L 4.3 Chloride (98-107) mmol/L 103 Carbon Dioxide (21.0-32.0) mmol/L 26.0 Anion Gap (3-11) mmol/L 11.0 BUN (7-18) mg/dL 26 H Creatinine (0.70-1.30) mg/dL 1.5 H Est GFR (CKD-EPI 2020) (mL/min/1.73m2) 46.48 Glucose (74-106) mg/dL 142 H Calcium (8.5-10.1) mg/dL 9.1 Total Bilirubin (0.2-1.0) mg/dL 1.3 H AST (15-37) U/L 16 ALT (16-63) U/L 26 Alkaline Phosphatase (46-116) U/L 76 Total Protein (6.4-8.2) g/dL 7.5 Albumin (3.4-5.0) g/dL 4.1 ABO/Rh A Positive Antibody Screen NEGATIVE Quality:[facility] Health Related Social Needs: No Data to Display Sign Out Sign Out Data: Sign Out Comment: Acute GI bleed, hemoglobin stable, pending CAT scan. Would likely benefit from admission. Last updated by Stevo Hidalgo DO at 01/23/24 07:36 Discharge Plan Disposition Patient Disposition: Admit to [facility] Condition: Serious Discharge Details Clinical Impression: Acute GI bleeding, Acute hemorrhagic colitis Admit Date/Time: 01/23/24 09:35 Admit Provider: Maximino Rodriguez Attending Provider: Maximino Rodriguez Primary Care Provider: Analia Deras ED Provider: Gonzales Islas Discharge Data Discharge Date/Time-TO BE ENTERED AT DEPARTURE: 01/23/24 10:25
--- NOTE | 2024-01-23 09:39 | HPE_ITS ---
Date of service: 01/23/24 Time of Service: 09:39 Assessment and Plan Assessment and plan (1) Acute GI bleeding: Status: Acute Assessment and plan: CBC in AM H&H 15 & 46 normotensive , non-tachycardic Surgical consult pending negative c-diff testing (2) Acute hemorrhagic colitis: Status: Acute Assessment and plan: As above C-diff PCR pending lactoferrin and fecal bacterial pathogen pending Procalcitonin 1.3:possible risk Will start ciprofloxacin if C-diff negative d/t age and presentation and CT Will treat C-diff with oral vanco if positive (3) JERI (acute kidney injury): Status: Acute Assessment and plan: IVF : LR at 100cc/hr , no history of CHF BMP in AM (4) Contraindication to deep vein thrombosis (DVT) prophylaxis: Status: Acute Assessment and plan: TEDs (5) Discharge planning issues: Status: Acute Assessment and plan: CM to f/u Discussed with Dr. Rodriguez History of Present Illness History of Present Illness Chief Complaint: GIB, colitis, JERI, hematochezia, diarrhea Narrative: This 83 years old male patient with a past medical history of prostate CA with prostatectomy 29 years ago, on daily aspirin presented today manage for evaluation of bloody diarrhea. The patient stated that the diarrhea started yesterday after lunch and was bright red in color and bloody; also reported multiple episodes throughout the day and evening with the most recent being about an hour prior to arrival to the ED. The patient denied recent travel abroad, drinking from ponds or streams, or antibiotic use. The patient reported having had a colonoscopy a year ago at [facility] with unremarkable results. He denied any recent history of GI bleeding but as per report from Dr. Islas the patient had a GI bleed episode when he was in his 30s. The patient admitted to general abdominal achiness and pain that have been ongoing today, reported some pain around is red tongue during his bowel movements. The patient denied nausea vomiting, constipation. In the ED the patient appeared to be mildly tachycardic with diffuse mild abdominal pain, no gross blood found during rectal exam. Lab in the ED were remarkable for WBC of 13.9. Mild left shift with absolute neutrophil count of 12, creatinine at 1.5 with a GFR of 46 and a BUN of 26, bilirubin slightly elevated at 1.3. The abdominal and pelvic CT showed severe colitis of the distal half of the colon including the rectosigmoid, small moderate amount of ascites in the pelvis, without evidence of bowel obstruction or free air plan the prostate was absent and the bladder pinto were diffusely thickened correction to be made to under distention or cystitis. The hospitalist was called and the patient was admitted to the medical surgical floor for evaluation and management of gastrointestinal bleeding, colitis, JERI, hematochezia, diarrhea, and abdominal pain. The hospitalist after reviewing the chart ordered a C C. difficile PCR on the stools in addition to the fecal stool pathogen testing ordered by the ED provider. PFSH All Active Problems (Updated 01/23/24 @ 12:39 by Marley Diaz APRN) Discharge planning issues (Acute) Contraindication to deep vein thrombosis (DVT) prophylaxis (Acute) JERI (acute kidney injury) (Acute) Colitis (Acute) Acute hemorrhagic colitis (Acute) Acute GI bleeding (Acute) Dysarthria (Acute) Essential tremor (Acute) Cervical radiculitis (Acute) Medical History Achilles tendinitis, right leg Alcohol abuse, in remission Personal history of prostate cancer Erectile dysfunction GERD (gastroesophageal reflux disease) Chronic low back pain Sciatica, left side Hammer toe of left foot Hyperlipidemia Surgical History S/P TURP S/P hernia repair Social History Smoking/Tobacco Use Status: Former Tobacco Use Smoking risk assessment performed?: Yes Alcohol Intake: former Drug use: Never Substance use type: does not use Household members: spouse Housing: house Number of Children: 2 number of grandchildren: 3 current occupation: Retired Pets and animals: No Current gender identity: male What is your relationship status?: Panel score (0-1 are the most socially isolated patients): 1 What type of physical activity do you participate in: walking Duration: 30-45 minutes/day Frequency: 1-2 times per week Seatbelt use: sometimes Do you feel safe at home: Yes Do you feel safe in your relationship?: Yes Meds Allergies and Home Medications Allergies Allergy/AdvReac Type Severity Reaction Status Date / Time Sulfa (Sulfonamide AdvReac Intermediate Hives Unverified 09/20/21 09:25 Antibiotics) Home Medications Medication Instructions Recorded Confirmed Type hydrocodone 5 mg-acetaminophen 325 1 tab PO . Q6HR PRN PRN 12/22/14 01/23/24 History mg tablet lansoprazole 30 mg capsule,delayed 1 tab PO DAILY 12/22/14 01/23/24 History release aspirin 81 mg tablet 81 mg PO DAILY 02/01/21 01/23/24 History folic acid 1 mg tablet 1 mg PO DAILY 01/23/24 01/23/24 History Exam Narrative Exam Narrative: Constitutional The patient is sitting in chair. The patient is well groomed without acute distress and has average body habitus/is obese/ is thin. HENMT: Head is atraumatic, normocephalic, no lymphadenopathy. Facial structures with normal appearance Neck: Normal ROM, no meningeal signs Neuro:alert and oriented to self, person, place, time and situation. No neurological focal deficit Resp: Clear lung bilaterally Cardio: regular rhythm, S1, S2, no murmur bilateral radial and dorsalis pedis pulses are positive GI: Abdomen is not distended, soft and with locsl tenderness to left lower quadrant, bowel sounds are present : Negative Costovertebral angle tenderness Back/spine/Pelvis: chronic lower back pain s/p fall years ago Integumentary: No skin lesions or rash Extremities: strength 5/5 to bilateral lower and upper extremities Psych: RASS 0, congruent mood and normal affect. Results Labs 01/23/24 06:30 01/23/24 06:30 Labs: Laboratory Results - last 24 hr 01/23/24 01/23/24 06:30 06:49 WBC 13.91 H RBC 5.26 Hgb 15.4 Hct 46.0 MCV 88 MCH 29.3 MCHC 33.5 RDW 13.2 Plt Count 216 MPV 10.5 Immature Gran % 0.3 Neutrophils % 86.3 Lymphocytes % 6.8 Monocytes % 6.3 Eosinophils % 0.1 Basophils % 0.2 Nucleated RBC % 0.0 Absolute Neutrophils 12.00 H Absolute Lymphocytes 0.95 L Absolute Monocytes 0.88 H Absolute Eosinophils 0.01 Absolute Basophils 0.03 PT 10.5 INR 1.0 APTT 25.4 Sodium 140 Potassium 4.3 Chloride 103 Carbon Dioxide 26.0 Anion Gap 11.0 BUN 26 H Creatinine 1.5 H Est GFR (CKD-EPI 2020) 46.48 Glucose 142 H Calcium 9.1 Total Bilirubin 1.3 H AST 16 ALT 26 Alkaline Phosphatase 76 Total Protein 7.5 Albumin 4.1 ABO/Rh A Positive Antibody Screen NEGATIVE Last Vital Signs Temp 36.7 C 01/23/24 06:26 Pulse 85 01/23/24 07:23 Resp 16 01/23/24 07:23 BP 160/74 H 01/23/24 07:23 Pulse Ox 99 01/23/24 07:23 Time Spent Time spent with Patient: >75 minutes Time was spent: preparing to see the patient(eg.review tests), obtaining and/or reviewing separately otained hiistory, ordering medications,tests, procedures, referring, communicating with other health care center manager, indepentently interpreting results, counseling the patient and care coordination
[2024-01-23 10:34] LABS: Procalcitonin 1.3 ng/mL
[2024-01-23] MEDS: Lactated Ringers 1,000 ML 100 ML IV ×2 (10:50→21:46)
[2024-01-23 10:59] LABS: C Diff PCR Negative (Negative)
[2024-01-23] MEDS: HYDROcodone 5/Acetaminophen 325 TAB PO (12:47)
[2024-01-23] MEDS: Normal Saline Flush 10 ML SYR IVP ×2 (14:20→19:46)
[2024-01-23] MEDS: CIPROFLOXACIN 400 MG/200 ML BAG 200 MG IVPB (14:21)
--- NOTE | 2024-01-23 14:49 | W.SURGCON ---
Date of service: 01/23/24 Time of Service: 16:20 Assessment and Plan Assessment and plan (1) Acute hemorrhagic colitis: Status: Acute Assessment and plan: 83-year-old man with ischemic colitis as the cause of the bloody diarrhea. He is hemodynamically stable and subjectively reports improvement. While there is some tenderness, his abdominal exam is grossly benign. It has been 3 days in evolution so at this point I think it safe to say that his left colon is not . This is a non-occlusive case, most likely because of dehydration and having a low?flow state throughout the distribution of the JOAN and watershed areas. I reviewed his CAT scan in careful detail and it looks like his JOAN and his SMA are patent. The JOAN is pretty small which might be the underlying culprit. Management is resuscitation and time. He does not need a colonoscopy to confirm this or assess it since he recently had one. The role for broad spectrum Abx is debatable and won't hurt in his case. Surgical management is indicated for perforation and/or peritonitis - neither of which is present in his case and both are unlikely to evolve at this point considering this has been going on for 3 days and now subjectively improving. I am optimistic his colon will bounce back just fine although it is possible to develop stricture/fibrotic disease after an insult like this. That will manifest down the road with chronic issues following recovery. I think this is unlikely/less likely and I anticipate a complete and full recovery. Surgery will follow along to see how he progresses over the next couple of days. My best guess is that he can probably be discharged home in the next 48 hours. History of Present Illness Narrative: Asked by the medical team to see Callum for abdominal pain and bloody diarrhea that has been going on for 3 days. Is actually getting better. The patient reports that his abdominal pain is improving. He also says the diarrhea seems to be improving though it is mostly bloody. This is never happened before. He denies any intra-abdominal surgery. He had a colonoscopy last year (not here) that was reportedly normal. He thinks he was very dehydrated a few days ago, mostly because of the hot weather. PFSH All Active Problems (Updated 01/23/24 @ 12:39 by Marley Diaz APRN) Discharge planning issues (Acute) Contraindication to deep vein thrombosis (DVT) prophylaxis (Acute) JERI (acute kidney injury) (Acute) Colitis (Acute) Acute hemorrhagic colitis (Acute) Acute GI bleeding (Acute) Dysarthria (Acute) Essential tremor (Acute) Cervical radiculitis (Acute) Medical History Achilles tendinitis, right leg Alcohol abuse, in remission Personal history of prostate cancer Erectile dysfunction GERD (gastroesophageal reflux disease) Chronic low back pain Sciatica, left side Hammer toe of left foot Hyperlipidemia Surgical History S/P TURP S/P hernia repair Social History Smoking/Tobacco Use Status: Former Tobacco Use Smoking risk assessment performed?: Yes Alcohol Intake: former Drug use: Never Substance use type: does not use Household members: spouse Housing: house Number of Children: 2 number of grandchildren: 3 current occupation: Retired Pets and animals: No Current gender identity: male What is your relationship status?: Panel score (0-1 are the most socially isolated patients): 1 What type of physical activity do you participate in: walking Duration: 30-45 minutes/day Frequency: 1-2 times per week Seatbelt use: sometimes Do you feel safe at home: Yes Do you feel safe in your relationship?: Yes Exam Narrative Exam Narrative: General: Nontoxic, comfortable and interactive Neuro: Alert and oriented x 3 Psych: Good mood and affect, good insight and understanding into his history/condition Chest: Nonlabored breathing Heart: Regular Abdomen: Soft, nondistended, mild-moderate diffuse tenderness to deep palpation(more on the left than on the right), no peritoneal signs Results Last Vital Signs Temp 99.3 F 01/23/24 11:08 Pulse 83 01/23/24 11:08 Resp 18 01/23/24 11:08 BP 136/80 01/23/24 11:08 Pulse Ox 98 01/23/24 11:08 Labs 01/23/24 06:30 01/23/24 06:30 Labs: Laboratory Results - last 24 hr 01/23/24 01/23/24 01/23/24 06:30 06:49 09:34 WBC 13.91 H RBC 5.26 Hgb 15.4 Hct 46.0 MCV 88 MCH 29.3 MCHC 33.5 RDW 13.2 Plt Count 216 MPV 10.5 Immature Gran % 0.3 Neutrophils % 86.3 Lymphocytes % 6.8 Monocytes % 6.3 Eosinophils % 0.1 Basophils % 0.2 Nucleated RBC % 0.0 Absolute Neutrophils 12.00 H Absolute Lymphocytes 0.95 L Absolute Monocytes 0.88 H Absolute Eosinophils 0.01 Absolute Basophils 0.03 PT 10.5 INR 1.0 APTT 25.4 Sodium 140 Potassium 4.3 Chloride 103 Carbon Dioxide 26.0 Anion Gap 11.0 BUN 26 H Creatinine 1.5 H Est GFR (CKD-EPI 2020) 46.48 Glucose 142 H Calcium 9.1 Total Bilirubin 1.3 H AST 16 ALT 26 Alkaline Phosphatase 76 Total Protein 7.5 Albumin 4.1 Procalcitonin 1.3 Stool Campylobacter PCR Cancelled Stl C.difficile Tox PCR Negative Stool Salmonella PCR Cancelled Stool Shigella PCR Cancelled Shiga Toxin (PCR) Cancelled ABO/Rh A Positive Antibody Screen NEGATIVE
[2024-01-23 20:35] LABS: Campylobacter PCR Negative (Negative); Salmonella PCR Negative (Negative); Shiga Toxin PCR Negative (Negative); Shigella/Enteroinvasive Ecoli Negative (Negative)
[2024-01-24] VITALS (9 sets, daily range): BP systolic 101–139; BP diastolic 66–85; PULSE 74–82; RESP 16–18; TEMP 36.2–38; O2SAT 94–97
[2024-01-24] MEDS: CIPROFLOXACIN 400 MG/200 ML BAG 200 MG IVPB ×2 (00:50→14:16)
[2024-01-24] MEDS: Acetaminophen 500 MG TAB 1000 MG PO (00:50)
[2024-01-24 00:55] LABS: HCT 38.9 % (40.0-50.0)
[2024-01-24 00:58] LABS: HGB 13.3 g/dL (13.5-17.5)
[2024-01-24] MEDS: metroNIDAZOLE 500 MG/100 ML BAG 100 MG IVPB ×4 (01:59→20:20)
[2024-01-24 06:54] LABS: Abs Immature Grans 0.03 10^3/uL (0.0-0.06); Absolute Basophil Count 0.03 10^3/uL (0.0-0.2); Absolute Eosinophil Count 0.01 10^3/uL (0.0-0.7); Absolute Lymphocyte Count 0.93 10^3/uL (1.2-3.4); Absolute Monocyte Count 0.78 10^3/uL (0.1-0.8); Absolute Neutrophil Count 8.76 10^3/uL (1.2-6.7); Basophils % 0.3 %; Eosinophils % 0.1 %; HCT 38.8 % (40.0-50.0); HGB 13.1 g/dL (13.5-17.5); Immature Grans % 0.3 %; Lymphocytes % 8.8 %; MCH 29.7 pg (27.0-33.0); MCHC 33.8 % (32.0-36.0); MCV 88 fL (80-95); MPV 11.2 fL (8.0-11.0); Monocytes % 7.4 %; Neutrophils % 83.1 %; Platelet Count 178 10^3/uL (130-400); RBC 4.41 10^6/uL (4.36-5.78); RDW 13.6 % (11.8-14.1); RDW-SD 43.9 fL; WBC 10.54 10^3/uL (4.4-10.8)
[2024-01-24 07:17] LABS: ALT 21 U/L (16-63); AST 17 U/L (15-37); Albumin 3.4 g/dL (3.4-5.0); Alkaline Phosphatase 59 U/L (46-116); Anion Gap 10.2 mmol/L (3-11); BUN 19 mg/dL (7-18); Bilirubin, Total 1.2 mg/dL (0.2-1.0); CO2 25.8 mmol/L (21.0-32.0); CREATININE 1.3 mg/dL (0.70-1.30); Chloride 105 mmol/L (98-107); Estimated GFR 55.19 (mL/min/1.73m2); Glucose 117 mg/dL (74-106); Potassium 4.4 mmol/L (3.5-5.1); Sodium 141 mmol/L (136-145); Total Protein 6.5 g/dL (6.4-8.2)
[2024-01-24] MEDS: HYDROcodone 5/Acetaminophen 325 TAB PO ×2 (08:15→17:36)
[2024-01-24] MEDS: Lansoprazole 30 MG CAPCR PO (08:15)
[2024-01-24] MEDS: Folic Acid 1 MG TAB PO (08:16)
--- NOTE | 2024-01-24 10:42 | PDOC.CMIN ---
Date of service: 01/24/24 Time of Service: 10:42 Care Management Initial Assmt Initial Assessment Reason for Hospitalization: GI Bleed Functional Status/Living Situation Patient Presentation: Callum was sitting up in a chair when CM met with him. He was pleasant in manner and engaged well with CM. His and daughter were present and joined the conversation.Callum lives in a single family home with his which has the main living area on one floor. He has 2 children who live locally and the family is close. Callum was admitted for a GI Bleed from ischemic colitis but remains hemodynamically stable. He was seen by surgery and it was determined that he does not need a colonoscopy at this time nor does he require any transfusions as his H&H are stable at 13.1 and 38.8. Town of Residence: [place] Resides with: Spouse ( Mrena) Significant Other/Family: Local Natural Supports: family Employment Status: Retired (owned a construction business) Instrumental Activities of Daily Living (ADLs): Independent Medications Medication Management: No Issues/Barriers identified Physical Functioning/Mobility Assistive Device: none Advance Directives Advance Directives: Do you have an Advance Directive: Y 01/13/20 13:10 AD On File at [facility]: Y 01/23/24 06:32 Date Asked 01/23/24 01/23/24 07:20 AD Date Reviewed 01/23/24 01/23/24 06:32 COLST On File at [facility] COLST Date Scanned Code Status Resuscitation Status Full Code Portal Pt does not currently have a portal and education provided: Yes Insurance Coverage/Financial Issues Insurance: MVP Medicare replacement ACO Member: No Care Team Visit Care Team Role Provider Type Analia Deras MD Primary Care Provider [facility] STAFF PHYSICIAN Sage Garcia MD Other Providers [facility] STAFF PHYSICIAN Gonzales Islas MD Emergency Provider [facility] STAFF PHYSICIAN Maximino Rodriguez MD Admit Provider [facility] STAFF PHYSICIAN Attending Provider Discharge Potential Discharge Needs: PCP F/U Appt Anticipated Barriers to Discharge: None Identified Patient/Family Education Needs: Review discharge instructions, discuss Ask Me Three Transportation: Private vehicle Plan: Anticipate Callum will be discharged home with no new services.He will follow up with his PCP and plan of care and transport with family. CM will follow and continue to support discharge planning needs. PFSH All Active Problems (Updated 01/23/24 @ 12:39 by Marley Diaz APRN) Discharge planning issues (Acute) Contraindication to deep vein thrombosis (DVT) prophylaxis (Acute) JERI (acute kidney injury) (Acute) Colitis (Acute) Acute hemorrhagic colitis (Acute) Acute GI bleeding (Acute) Dysarthria (Acute) Essential tremor (Acute) Cervical radiculitis (Acute) Medical History Achilles tendinitis, right leg Alcohol abuse, in remission Personal history of prostate cancer Erectile dysfunction GERD (gastroesophageal reflux disease) Chronic low back pain Sciatica, left side Hammer toe of left foot Hyperlipidemia Surgical History S/P TURP S/P hernia repair Social History Smoking/Tobacco Use Status: Former Tobacco Use Smoking risk assessment performed?: Yes Alcohol Intake: former Drug use: Never Substance use type: does not use Household members: spouse Housing: house Number of Children: 2 number of grandchildren: 3 current occupation: Retired Pets and animals: No Current gender identity: male What is your relationship status?: Panel score (0-1 are the most socially isolated patients): 1 What type of physical activity do you participate in: walking Duration: 30-45 minutes/day Frequency: 1-2 times per week Seatbelt use: sometimes Do you feel safe at home: Yes Do you feel safe in your relationship?: Yes SDOH(Care Management) Screening Will the Patient Participate in the Screening?: Yes Do you worry about having a steady place to live?: no In the past 12 months, have you had to go without electric, gas, oil or water in your home?: no Have you or anyone in your house had to go without enough food to eat?: no Has lack of transportation kept you from medical appointments or from doing things needed for daily living?: no Has anyone in your support network made you feel unsafe for any reason?: no
--- NOTE | 2024-01-24 11:24 | PGE_ITS ---
Date of Service Date of service: 01/24/24 Time of Service: 11:24 Assessment and Plan Assessment and plan (1) Acute GI bleeding: Status: Acute Assessment and plan: CBC in AM H&H 15 & 46 today 13.1 & 38.8 -Still having hematochezia today X 1 Surgical consult: Most likely d/t ischemia after reviewing the CT and taking history that includes dehydration and working outside from patient. Dr Radha baeza mentioned that the patient has a low?flow state throughout the distribution of the JOAN and watershed areas in addition to a small JOAN that could be the cause. -No need for colonoscopy at this time as hematochezia should diminished as the bowel mucosa regenerates Will continue to monitor (2) Acute hemorrhagic colitis: Status: Acute Assessment and plan: As above C-diff and Shiga toxin negative Lactoferrin is positive and fecal bacterial pathogen array is negative Procalcitonin 1.3:possible risk Continue ciprofloxacin and metronidazole started last night s/p fever; Febrile overnight and blood cultures are pending (3) JERI (acute kidney injury): Status: Acute Assessment and plan: Continue IVF : LR at 100cc/hr , no history of CHF Cr 1.5 on admission, now 1.3 with baseline around 1.0 to 1.1 BMP in AM (4) Contraindication to deep vein thrombosis (DVT) prophylaxis: Status: Acute Assessment and plan: Continue TEDs (5) Discharge planning issues: Status: Acute Assessment and plan: CM to f/u Discharge when medically stable w/o hematochezia Discussed with Dr. Rodriguez Exam Narrative Exam Narrative: Constitutional The patient is sitting in chair, eating lunch, no acute distress, no further episode of GIB since around midnight The patient is without acute distress HENMT: Facial structures with normal appearance Neck: NO JVD Neuro:alert and oriented X 4, no focal deficit Resp: Clear lung bilaterally Cardio: regular rhythm, S1, S2, positive radial pulses GI: Abdomen is not distended, soft and non-tender, bowel sounds are present Psych: RASS 0, congruent mood and normal affect. Objective Last Vital Signs Temp 36.4 C L 01/24/24 11:12 Pulse 74 01/24/24 11:12 Resp 16 01/24/24 11:12 BP 116/66 01/24/24 11:12 Pulse Ox 96 06/07/24 11:12 Laboratory Results - last 24 hr 01/23/24 01/23/24 01/24/24 11:37 15:16 00:47 WBC RBC Hgb 13.3 L D Hct 38.9 L MCV MCH MCHC RDW Plt Count MPV Immature Gran % Neutrophils % Lymphocytes % Monocytes % Eosinophils % Basophils % Nucleated RBC % Absolute Neutrophils Absolute Lymphocytes Absolute Monocytes Absolute Eosinophils Absolute Basophils Sodium Potassium Chloride Carbon Dioxide Anion Gap BUN Creatinine Est GFR (CKD-EPI 2020) Glucose Calcium Total Bilirubin AST ALT Alkaline Phosphatase Total Protein Albumin Stool Campylobacter PCR Negative Cancelled Stool Salmonella PCR Negative Cancelled Stool Shigella PCR Negative Cancelled Shiga Toxin (PCR) Negative Cancelled 01/24/24 06:18 WBC 10.54 RBC 4.41 Hgb 13.1 L Hct 38.8 L MCV 88 MCH 29.7 MCHC 33.8 RDW 13.6 Plt Count 178 MPV 11.2 H Immature Gran % 0.3 Neutrophils % 83.1 Lymphocytes % 8.8 Monocytes % 7.4 Eosinophils % 0.1 Basophils % 0.3 Nucleated RBC % 0.0 Absolute Neutrophils 8.76 H Absolute Lymphocytes 0.93 L Absolute Monocytes 0.78 Absolute Eosinophils 0.01 Absolute Basophils 0.03 Sodium 141 Potassium 4.4 Chloride 105 Carbon Dioxide 25.8 Anion Gap 10.2 BUN 19 H Creatinine 1.3 Est GFR (CKD-EPI 2020) 55.19 Glucose 117 H Calcium 9.0 Total Bilirubin 1.2 H AST 17 ALT 21 Alkaline Phosphatase 59 Total Protein 6.5 Albumin 3.4 Stool Campylobacter PCR Stool Salmonella PCR Stool Shigella PCR Shiga Toxin (PCR) Time Spent with Patient Time Spent with Patient: >50 minutes Time was spent: preparing to see the patient(eg.review tests), obtaining and/or reviewing separately otained hiistory, ordering medications,tests, procedures, referring, communicating with other health medical care evaluation specialist, indepentently interpreting results, counseling the patient and care coordination
--- NOTE | 2024-01-24 12:46 | W.PM.PROGNOT ---
Date of Service Date of service: 01/24/24 Time of Service: 10:00 Assessment and Plan Assessment and plan (1) Acute hemorrhagic colitis: Status: Acute Assessment and plan: (1) No apparent ongoing bleeding. (2) Continue hydration. (3) Continue Cipro & Flagyl (4) Recommend low-residue diet for next 2 weeks. Following hospital course. Jeramy Saavedra D.O. Subjective Subjective Interval history since last seen: Patient seen on consultation yesterday by Dr. Garcia and this morning on rounds by this surgeon. Patient states that he's feeling better. Passing flatus, denies passing any blood today. at bedside visiting. Exam Narrative Exam Narrative: Pleasant, alert, conversational, appropriate and cooperative throughout encounter. Const General: cooperative, healthy appearing, comfortable and no acute distress Eyes Other: Non-icteric Neck Other: Supple GI Other: Abdomen is soft, nontender, BS are present, there is no guarding and no rebound. Extrem Other: There is no calf pain. Objective Last Vital Signs Temp 97.5 F L 01/24/24 11:12 Pulse 74 01/24/24 11:12 Resp 16 01/24/24 11:12 BP 116/66 01/24/24 11:12 Pulse Ox 96 01/24/24 11:12 Laboratory Results - last 24 hr 01/23/24 01/23/24 01/24/24 11:37 15:16 00:47 WBC RBC Hgb 13.3 L D Hct 38.9 L MCV MCH MCHC RDW Plt Count MPV Immature Gran % Neutrophils % Lymphocytes % Monocytes % Eosinophils % Basophils % Nucleated RBC % Absolute Neutrophils Absolute Lymphocytes Absolute Monocytes Absolute Eosinophils Absolute Basophils Sodium Potassium Chloride Carbon Dioxide Anion Gap BUN Creatinine Est GFR (CKD-EPI 2020) Glucose Calcium Total Bilirubin AST ALT Alkaline Phosphatase Total Protein Albumin Stool Campylobacter PCR Negative Cancelled Stool Salmonella PCR Negative Cancelled Stool Shigella PCR Negative Cancelled Shiga Toxin (PCR) Negative Cancelled 01/24/24 06:18 WBC 10.54 RBC 4.41 Hgb 13.1 L Hct 38.8 L MCV 88 MCH 29.7 MCHC 33.8 RDW 13.6 Plt Count 178 MPV 11.2 H Immature Gran % 0.3 Neutrophils % 83.1 Lymphocytes % 8.8 Monocytes % 7.4 Eosinophils % 0.1 Basophils % 0.3 Nucleated RBC % 0.0 Absolute Neutrophils 8.76 H Absolute Lymphocytes 0.93 L Absolute Monocytes 0.78 Absolute Eosinophils 0.01 Absolute Basophils 0.03 Sodium 141 Potassium 4.4 Chloride 105 Carbon Dioxide 25.8 Anion Gap 10.2 BUN 19 H Creatinine 1.3 Est GFR (CKD-EPI 2020) 55.19 Glucose 117 H Calcium 9.0 Total Bilirubin 1.2 H AST 17 ALT 21 Alkaline Phosphatase 59 Total Protein 6.5 Albumin 3.4 Stool Campylobacter PCR Stool Salmonella PCR Stool Shigella PCR Shiga Toxin (PCR) Time Spent with Patient Time Spent with Patient: <25 minutes Time was spent: preparing to see the patient(eg.review tests), obtaining and/or reviewing separately otained hiistory, indepentently interpreting results and counseling the patient
[2024-01-24] MEDS: Lactated Ringers 1,000 ML 100 ML IV (14:16)
[2024-01-24] MEDS: Normal Saline Flush 10 ML SYR IVP (14:16)
--- NOTE | 2024-01-24 14:35 | CHAPLAIN ---
Callum up in a chair by the window when I visited. His and daughter were with him. I explained my role and offered support. He thanked me for checking in with him.
[2024-01-25] MEDS: CIPROFLOXACIN 400 MG/200 ML BAG 200 MG IVPB ×2 (01:30→14:18)
[2024-01-25] MEDS: metroNIDAZOLE 500 MG/100 ML BAG 100 MG IVPB ×2 (02:30→08:40)
[2024-01-25 02:34] VITALS: BP 126/76; PULSE 75; RESP 16; TEMP 37.2; O2SAT 97
[2024-01-25] MEDS: Lactated Ringers 1,000 ML 100 ML IV (04:44)
[2024-01-25 08:08] VITALS: BP 117/66; PULSE 86; RESP 16; TEMP 37.5; O2SAT 96
[2024-01-25] MEDS: Folic Acid 1 MG TAB PO (08:40)
[2024-01-25] MEDS: Lansoprazole 30 MG CAPCR PO (08:40)
[2024-01-25] MEDS: Normal Saline Flush 10 ML SYR IVP (08:40)
[2024-01-25 10:48] VITALS: BP 141/72; PULSE 70; RESP 16; TEMP 37.1; O2SAT 97
[2024-01-25] MEDS: HYDROcodone 5/Acetaminophen 325 TAB PO (11:46)
[2024-01-25 11:51] LABS: Abs Immature Grans 0.03 10^3/uL (0.0-0.06); Absolute Basophil Count 0.03 10^3/uL (0.0-0.2); Absolute Eosinophil Count 0.04 10^3/uL (0.0-0.7); Absolute Lymphocyte Count 0.92 10^3/uL (1.2-3.4); Absolute Monocyte Count 0.54 10^3/uL (0.1-0.8); Absolute Neutrophil Count 5.66 10^3/uL (1.2-6.7); Basophils % 0.4 %; Eosinophils % 0.6 %; HCT 35.7 % (40.0-50.0); Immature Grans % 0.4 %; Lymphocytes % 12.7 %; MCH 29.9 pg (27.0-33.0); MCHC 33.6 % (32.0-36.0); MCV 89 fL (80-95); MPV 10.5 fL (8.0-11.0); Monocytes % 7.5 %; Neutrophils % 78.4 %; Platelet Count 155 10^3/uL (130-400); RBC 4.01 10^6/uL (4.36-5.78); RDW 13.3 % (11.8-14.1); RDW-SD 43.8 fL; WBC 7.22 10^3/uL (4.4-10.8)
[2024-01-25 12:01] LABS: Anion Gap 10.1 mmol/L (3-11); BUN 14 mg/dL (7-18); CO2 26.9 mmol/L (21.0-32.0); CREATININE 1.2 mg/dL (0.70-1.30); Calcium 8.7 mg/dL (8.5-10.1); Chloride 104 mmol/L (98-107); Estimated GFR 60.75 (mL/min/1.73m2); Glucose 143 mg/dL (74-106); Potassium 4.1 mmol/L (3.5-5.1); Sodium 141 mmol/L (136-145)
--- NOTE | 2024-01-25 12:10 | W.PM.DS.N ---
Date of service: 01/25/24 Time of Service: 12:10 DS: Diagnosis Discharge Diagnosis (1) Acute GI bleeding: Status: Acute (2) Acute hemorrhagic colitis: Status: Acute (3) JERI (acute kidney injury): Status: Acute Discharge Plan Disposition Patient Disposition: Home Condition: Improving Discharge Details Reason For Visit: GIB, Colitis, JERI Admit Date/Time: 01/23/24 09:35 Admit Provider: Maximino Rodriguez Attending Provider: Maximino Rodriguez Primary Care Provider: Analia Deras [facility] Hospital Course: This 83 years old male patient with a past medical history of prostate CA with prostatectomy 29 years ago, on daily aspirin presented today manage for evaluation of bloody diarrhea. The patient stated that the diarrhea started on 01/21 after lunch and was bright red in color and bloody; also reported multiple episodes throughout the day and evening with the most recent being about an hour prior to arrival to the ED. The patient denied recent travel abroad, drinking from ponds or streams, or antibiotic use. The patient reported having had a colonoscopy a year ago with unremarkable results. He denied any recent history of GI bleeding but as per report from Dr. Islas, the patient had a GI bleed episode when he was in his 30s. The patient reported general abdominal achiness and pain that have been ongoing, reported some pain around is rectum during his bowel movements. The patient denied nausea vomiting, constipation. In the ED the patient was mildly tachycardic with diffuse mild abdominal pain, no gross blood found during rectal exam. Lab in the ED were remarkable for WBC of 13.9. Mild left shift with absolute neutrophil count of 12, creatinine at 1.5 with a GFR of 46 and a BUN of 26, bilirubin slightly elevated at 1.3. The abdominal and pelvic CT showed severe colitis of the distal half of the colon including the rectosigmoid, small moderate amount of ascites in the pelvis, without evidence of bowel obstruction or free air plan the prostate was absent and the bladder pinto were diffusely thickened correction to be made to under distention or cystitis. The hospitalist was called and the patient was admitted to the medical surgical floor for evaluation and management of gastrointestinal bleeding, colitis, JERI, hematochezia, diarrhea, and abdominal pain. The hospitalist after reviewing the chart ordered a C C. difficile PCR on the stools in addition to the fecal stool pathogen testing ordered by the ED provider. The stool C. difficile toxin PCR came back negative. Aspirin was held. The patient was started on IV ciprofloxacin and IV fluids. A surgical consult was completed with no recommendation for endoscopic or surgical interventions; as per Dr. Ricks's note the clinical presentation and imaging data points to perforation nor peritonitis. The surgeon mentioned that the etiology was most likely from ischemic nature due to dehydration and low flow state throughout the distribution of the inferior mesenteric artery; review of the CT scan showed patent inferior mesenteric and superior mesenteric arteries. During the first night the patient developed a fever, blood cultures were drawn and metronidazole IV initiated. Yesterday the patient reported passing bloody stools but with lesser amount of blood. The patient have not had a bowel movement for the past 24 hours at this time and stating feeling better and would like to go home. The patient did not develop any further episodes of fever, JERI as resolved with a creatinine of 1.2. Hemoglobin and hematocrit were 13 1 and 38.8 yesterday and now 12 and 35.7. The patient is tolerating oral intake and is encouraged to continue to hydrate himself to prevent dehydration. The IV antibiotics will be transition to Augmentin. The patient will have to follow-up with his PCP regarding his recent hospitalization within a week of discharge. The patient will have to have a CBC drawn on 01/27/2024 which results forwarded to his primary care practitioner. The patient has been instructed to seek medical assistance in the event of hematochezia or bloody stool similar to the one from the admission day. Discussed with Dr. Rodriguez Home Meds and New Rx's Prescriptions: New amoxicillin-pot clavulanate 875-125 mg tablet 1 tab PO Q12H Qty: 10 0RF Continued hydrocodone-acetaminophen 1 TAB tablet 1 tab PO . Q6HR PRN PRN lansoprazole 30 MG capsule,delayed release(DR/EC) 1 tab PO DAILY folic acid 1 mg tablet 1 mg PO DAILY Patient Comments: TAKE ONE TABLET BY MOUTH EVERY DAY Held aspirin 81 mg tablet 81 mg PO DAILY Hold Instructions: Resume on 01/31/24. As per PCP Discharge Instructions Stand Alone Forms: Nursing Discharge Form Referrals: Analia Deras MD [Primary Care Provider] - (please call on Saturday and make an appointment for 1-2 weeks! ) Activity:: Activity as Tolerated Equipment/Supplies:: No Equipment Needed Diet:: As Tolerated Discharge Orders Discharge Orders: Discharge Order (Routine); Ordered 01/25/24 Ordered By: Marley Diaz Other Ambulatory Orders: Complete Blood Count w/Diff (Routine) Timeframe: 20240127 Facility: [facility] - Location: Laboratory Outpatient - [facility] Ordered By: Marley Diaz DS: Summary Time Spent with Patient providing and/or coordinating discharge services: Greater than 30 minutes Status at Discharge Functional status at discharge: independent ambulation Overall status at discharge: patient is back to baseline Mental Status: mental status grossly normal Speech and Movement: speech and movement normal Mood: congruent mood Affect: normal affect Quality:SDOH Health Related Social Needs: No Data to Display Exam Narrative Exam Narrative: Constitutional The patient is sitting in chair, eating lunch, no acute distress, no further episode of GIB since around midnight The patient is without acute distress HENMT: Facial structures with normal appearance Neck: NO JVD Neuro:alert and oriented X 4, no focal deficit Resp: Clear lung bilaterally Cardio: regular rhythm, S1, S2, positive radial pulses GI: Abdomen is not distended, soft and non-tender, bowel sounds are present Psych: RASS 0, congruent mood and normal affect. Psych Mental Status: mental status grossly normal Speech and Movement: speech and movement normal Mood: congruent mood Affect: normal affect DS: Data Vitals/I&O Vitals and I&O: Vital Signs Temperature 37.1 C 01/25/24 10:48 Temperature Source Temporal Artery Scan 01/25/24 10:48 Pulse 70 01/25/24 10:48 Pulse Rhythm Regular 01/25/24 08:45 Respiratory Rate 16 01/25/24 10:48 Respiratory Effort Normal, Non-Labored 01/25/24 08:45 Respiratory Depth Normal 01/25/24 08:45 Respiratory Pattern Normal 01/25/24 08:45 Blood Pressure 141/72 H 01/25/24 10:48 Blood Pressure Position Sitting 01/23/24 06:26 Pulse Oximetry 97 01/25/24 10:48 Oxygen Delivery Method Room Air 01/25/24 10:48 Oxygen Flow Rate 0 01/25/24 10:48 Pain Level 8 01/25/24 11:46 Comment Will inform RN of BP 01/25/24 10:48 Intake & Output 01/24/24 01/25/24 01/25/24 23:59 11:59 23:59 Intake Total 400 / 1800 1703.333 / 1703.333 Balance 400 / 1800 1703.333 / 1703.333 Intake: IV 400 / 1800 1463.333 / 1463.333 Oral 240 / 240 Other: Urine Color Yellow Yellow Urine Appearance Clear Clear Comment pt voids independently Voiding Methods Toilet Toilet Data Completed and Pending Labs on day of discharge: Labs from last 24 hours 01/25/24 11:44 WBC 7.22 RBC 4.01 L Hgb 12.0 L Hct 35.7 L MCV 89 MCH 29.9 MCHC 33.6 RDW 13.3 Plt Count 155 MPV 10.5 Immature Gran % 0.4 Neutrophils % 78.4 Lymphocytes % 12.7 Monocytes % 7.5 Eosinophils % 0.6 Basophils % 0.4 Nucleated RBC % 0.0 Absolute Neutrophils 5.66 Absolute Lymphocytes 0.92 L Absolute Monocytes 0.54 Absolute Eosinophils 0.04 Absolute Basophils 0.03 Sodium 141 Potassium 4.1 Chloride 104 Carbon Dioxide 26.9 Anion Gap 10.1 BUN 14 Creatinine 1.2 Est GFR (CKD-EPI 2020) 60.75 Glucose 143 H Calcium 8.7 Preliminary micro results at discharge 01/24/24 00:42 Blood Culture - Preliminary Blood NO GROWTH 24 HOURS 01/24/24 00:47 Blood Culture - Preliminary Blood NO GROWTH 24 HOURS PFSH All Active Problems (Updated 01/23/24 @ 12:39 by Marley Diaz APRN) Discharge planning issues (Acute) Contraindication to deep vein thrombosis (DVT) prophylaxis (Acute) JERI (acute kidney injury) (Acute) Colitis (Acute) Acute hemorrhagic colitis (Acute) Acute GI bleeding (Acute) Dysarthria (Acute) Essential tremor (Acute) Cervical radiculitis (Acute) Medical History Achilles tendinitis, right leg Alcohol abuse, in remission Personal history of prostate cancer Erectile dysfunction GERD (gastroesophageal reflux disease) Chronic low back pain Sciatica, left side Hammer toe of left foot Hyperlipidemia Surgical History S/P TURP S/P hernia repair Social History Smoking/Tobacco Use Status: Former Tobacco Use Smoking risk assessment performed?: Yes Alcohol Intake: former Drug use: Never Substance use type: does not use Household members: spouse Housing: house Number of Children: 2 number of grandchildren: 3 current occupation: Retired Pets and animals: No Current gender identity: male What is your relationship status?: Panel score (0-1 are the most socially isolated patients): 1 What type of physical activity do you participate in: walking Duration: 30-45 minutes/day Frequency: 1-2 times per week Seatbelt use: sometimes Do you feel safe at home: Yes Do you feel safe in your relationship?: Yes Time Spent with Patient Time Spent with Patient: >85 minutes Time was spent: preparing to see the patient(eg.review tests), obtaining and/or reviewing separately otained hiistory, ordering medications,tests, procedures, referring, communicating with other health pharmacy care coordinator, indepentently interpreting results, counseling the patient and care coordination
--- NOTE | 2024-01-25 13:35 | W.PM.PROGNOT ---
Date of Service Date of service: 01/25/24 Time of Service: 10:00 Assessment and Plan Assessment and plan (1) Acute hemorrhagic colitis: Status: Acute Assessment and plan: (a) No bleeding has been observed (b) H/H stable (c) WBC now normal (d) Will sign-off case at this time. Patient can follow-up with Primary Physician. Can also follow-up at General Surgery Office if need be. Jeramy Saavedra D.O. Subjective Subjective Interval history since last seen: Patient seen and examined on rounds this morning. States that he is feeling good. Denies passing any blood or having any abdominal pain or discomfort. Exam Narrative Exam Narrative: Good-spirited. and daughter at bedside. Patient up-to-chair. GI Other: Abdomen if soft, non-tender, BS are present, there is no guarding and no rebound. Extrem Other: There is no calf pain. Objective Last Vital Signs Temp 98.8 F 01/25/24 10:48 Pulse 70 01/25/24 10:48 Resp 16 01/25/24 10:48 BP 141/72 H 01/25/24 10:48 Pulse Ox 97 01/25/24 10:48 Laboratory Results - last 24 hr 01/25/24 11:44 WBC 7.22 RBC 4.01 L Hgb 12.0 L Hct 35.7 L MCV 89 MCH 29.9 MCHC 33.6 RDW 13.3 Plt Count 155 MPV 10.5 Immature Gran % 0.4 Neutrophils % 78.4 Lymphocytes % 12.7 Monocytes % 7.5 Eosinophils % 0.6 Basophils % 0.4 Nucleated RBC % 0.0 Absolute Neutrophils 5.66 Absolute Lymphocytes 0.92 L Absolute Monocytes 0.54 Absolute Eosinophils 0.04 Absolute Basophils 0.03 Sodium 141 Potassium 4.1 Chloride 104 Carbon Dioxide 26.9 Anion Gap 10.1 BUN 14 Creatinine 1.2 Est GFR (CKD-EPI 2020) 60.75 Glucose 143 H Calcium 8.7 Objective Narrative Objective Narrative: WBC 13,900 --> 10,500 H/H: 13.1/38.8 Time Spent with Patient Time Spent with Patient: <25 minutes Time was spent: preparing to see the patient(eg.review tests), indepentently interpreting results and counseling the patient
--- NOTE | 2024-01-25 14:40 | PDOC.CMDIS ---
Date of service: 01/25/24 Time of Service: 14:40 LACE Index Scoring Tool Questions: Length of Stay (in days): 2 Was the patient admitted via the E.D.?: Yes Comorbidities: Any Tumor E.D. Visits: 1 Answers: Total Score: 8 Risk of Readmission: Low Risk Care Management Discharge Plan Reason for Hospitalization: GI Bleed Discharge Plan: Callum will be discharged home with no new services. He will follow up with community providers and plan of care and transport with family. Patient/Family Education Needs: Review discharge instructions, activity, diet, limitations, follow up plan and discuss Ask Me Three SDWI Health Related Social Needs: No Data to Display
== END 2024-01-25 16:16 | disposition home or self-care (01) | DRG 378 ==
LOC: ER 09:15 → MS 10:31
PROVIDERS: Internal Medicine; Nurse Practitioner Acute Care; Student in an Organized Health Care Education/Training Program; Admitting Provider Family Medicine; Emergency Provider Student in an Organized Health Care Education/Training Program; PCP Family Medicine; Visit Provider Family Medicine
DX: K92.1 Melena (principal); N17.9 Acute kidney failure, unspecified; R18.8 Other ascites; K52.89 Other specified noninfective gastroenteritis and colitis; M54.12 Radiculopathy, cervical region; R50.9 Fever, unspecified; E78.5 Hyperlipidemia, unspecified; E86.0 Dehydration; K21.9 Gastro-esophageal reflux disease without esophagitis; G25.0 Essential tremor; G89.29 Other chronic pain; F10.11 Alcohol abuse, in remission; M54.42 Lumbago with sciatica, left side; Z79.82 Long term (current) use of aspirin; Z85.46 Personal history of malignant neoplasm of prostate; Z87.891 Personal history of nicotine dependence
CPT/HCPCS: 00123; 36415; 80048; 80053; 84145; 86850; 86900; 86901; 87040; 87493; 87505; 96361; 96374; 96375; 99222; 99231; 99285; 74177; 83630; 85014; 85018; 85025; 85610; 85730; 99223; 99233; 99239; J0744; J1836; J2470

== ENCOUNTER 2024-01-27 16:28 | Outpatient (CLI) | payer MEDICARE, SELFPAY ==
[2024-01-27 11:21] LABS: Abs Immature Grans 0.02 10^3/uL (0.0-0.06); Absolute Basophil Count 0.03 10^3/uL (0.0-0.2); Absolute Eosinophil Count 0.07 10^3/uL (0.0-0.7); Absolute Lymphocyte Count 0.98 10^3/uL (1.2-3.4); Absolute Neutrophil Count 4.58 10^3/uL (1.2-6.7); Basophils % 0.5 %; Eosinophils % 1.1 %; HCT 38.6 % (40.0-50.0); HGB 13.2 g/dL (13.5-17.5); Immature Grans % 0.3 %; Lymphocytes % 15.6 %; MCH 30.2 pg (27.0-33.0); MCHC 34.2 % (32.0-36.0); MCV 88 fL (80-95); MPV 10.5 fL (8.0-11.0); Monocytes % 9.6 %; Neutrophils % 72.9 %; Platelet Count 214 10^3/uL (130-400); RBC 4.37 10^6/uL (4.36-5.78); RDW 13.2 % (11.8-14.1); RDW-SD 43.2 fL; WBC 6.28 10^3/uL (4.4-10.8)
== END 2024-01-27 16:29 | disposition home or self-care (01) ==
LOC: LBO 16:29
PROVIDERS: PCP Family Medicine; Visit Provider Nurse Practitioner Acute Care
DX: K92.2 Gastrointestinal hemorrhage, unspecified (principal)
CPT/HCPCS: 36415; 85025

== ENCOUNTER 2024-02-19 12:56 | Outpatient (REF) | payer MEDICARE, SELFPAY ==
[2024-02-19 19:20] LABS: HCT 43.6 % (40.0-50.0); HGB 14.4 g/dL (13.5-17.5); MCH 29.7 pg (27.0-33.0); MCV 90 fL (80-95); MPV 11.3 fL (8.0-11.0); Platelet Count 208 10^3/uL (130-400); RBC 4.85 10^6/uL (4.36-5.78); RDW 12.9 % (11.8-14.1); WBC 7.09 10^3/uL (4.4-10.8)
[2024-02-19 19:34] LABS: Ferritin 106 ng/mL (26-388)
== END 2024-02-19 12:57 | disposition home or self-care (01) ==
LOC: NCHCN 12:56
PROVIDERS: PCP Family Medicine; Visit Provider Family Medicine
DX: D53.1 Other megaloblastic anemias, not elsewhere classified (principal); K52.9 Noninfective gastroenteritis and colitis, unspecified
CPT/HCPCS: 85027; 82728

== ENCOUNTER 2024-07-13 12:07 | Outpatient (REF) | payer MEDICARE, SELFPAY ==
--- OUTSIDE RECORDS SUMMARY | 2024-07-13 12:09 | XMS_ITS | Encounter Summary ---
Author Organization [facility] [place] [address] Care Team Providers Care Gold Marker Name Role Phone Analia Deras MD Primary Care Provider [phone] Encounter Details Date Type Department Care Team (Late st Contact Info) Description 10/31/2010 7:00 AM EDT Procedure visit [place] [address] Everett Ramos MD [facility] [place] [address] Social History Tobacco Use Types Packs/Day Years Used Date Smoking Tobacco: Never Assessed Sex and Gender Information Value Date Recorded Sex Assigned at Not on file Gender Identity Not on file Sexual Orientation Not on file documented as of this encounter Plan of Treatment Not on file documented as of this encounter Visit Diagnoses Not on filedocumented in this encounter Care Teams Gold Marker Relationship Specialty Start Date End Date Analia Deras MD [facility] [address] [place] [address] PCP - General 07/11/10 documented as of this encounter
--- OUTSIDE RECORDS SUMMARY | 2024-07-13 12:09 | XMS_ITS | Data Portability ---
Author Organization [place] [facility] Address [address] [place] [address] Assessment Encounter Date Assessment Date Assessment LastModified by Organization Details LastModified Time 09/11/2023 09/11/2023 Patient presente d to office today for their Medicare Annual Wellness Visit. Education was provided on healthy nutrition, including a diet rich in fruits and vegetables, minimizing simple carbohydrates, salt, and saturated fats. Encouraged regular cardiovascular exercise such as walking at least 30 minutes daily, 5 times per week. He will continue his walking daily. Emphasized preventive health measures and educated pt on fall prevention and community-based lifestyle interventions to help reduce health risks and promote healthy living. Personalized prevention plan (PPP) completed and reviewed with patient. Patient was given copy of PPP at conclusion of visit. Not available 09/11/2023 09:44:36 Plan of Treatment Reminders Order Date Submit Date Provider Last Modified By Organization Details Last Modified Time Details Appointments Follow Up 20 2023 09:00A M Analia Deras Not available Not available Not available Lab CBC 2023 [facility] (Registration ), [address] [place] [address] [place], [address], 02/19/2024 19:24:05 ferritin, serum or plasma 2023 024 [facility] (Registration ), [address] [place] [address] [place], [address], 02/20/2024 19:45:47 Referral None recorded. Procedures None recorded. Surgeries None recorded. Imaging None recorded. Medication Orders folic acid 1 mg tablet 2023 [facility], [address] [facility], [address], [place], [address], 09/11/2023 09:46:26 cyanocoba roseann (vitamin B-12) 1,000 mcg capsule 2023 024 [facility], [address] [facility], [address], [place], [address], 09/11/2023 09:46:23 hydrocodo ne 5 mg-acetam inophen 325 mg tablet 2023 024 [facility], [address] [facility], [address], [place], [address], 09/11/2023 09:46:36 hydrocodo ne 5 mg-acetam inophen 325 mg tablet 2023 024 [facility], [address] [facility], [address], [place], [address], 09/11/2023 09:46:35 hydrocodo ne 5 mg-acetam inophen 325 mg tablet 2023 024 [facility], [address] [facility], [address], [place], [address], 09/11/2023 09:46:37 aspirin 81 mg tablet,de layed release 2023 024 [facility], [address] [facility], [address], [place], [address], 09/11/2023 09:46:22 Myrbetriq 25 mg tablet,ex tended release 2023 024 [email or web address], [address] [facility], [address], [place], [address], 11/27/2023 08:11:12 lansopraz ole 30 mg capsule,d elayed release 2023 024 [facility], [address], [address], [place], [address], 09/11/2023 09:46:21 hydrocodo ne 5 mg-acetam inophen 325 mg tablet 2023 024 [facility], [address], [address], [place], [address], 11/27/2023 08:13:54 hydrocodo ne 5 mg-acetam inophen 325 mg tablet 2023 024 [facility], [address], [address], [place], [address], 11/27/2023 08:13:54 hydrocodo ne 5 mg-acetam inophen 325 mg tablet 2023 024 [facility], [address], [address], [place], [address], 11/27/2023 08:13:55 hydrocodo ne 5 mg-acetam inophen 325 mg tablet 2023 024 [facility], [address], [address], [place], [address], 02/19/2024 10:58:21 hydrocodo ne 5 mg-acetam inophen 325 mg tablet 2023 024 [facility], [address], [address], [place], [address], 02/19/2024 10:58:17 hydrocodo ne 5 mg-acetam inophen 325 mg tablet 2023 024 [facility], [address], [address], [place], [address], 02/19/2024 10:58:21 Patient TargetsNo targets recorded. Patient Instructions Encounter Date Encounter Id Patient Instructions Last Modified By Organization Details Last Modified Time 09/11/2023 [id number] For the frequent urination at night, try myrbetrix 25 mg once a day Please restart the aspirin 81 mg daily, to prevent strokes. Not available 09/11/2023 08:32:54 Discussed and explained advance directives such as standard forms to the {{patient* caregi shell patient and caregiver}}. Face to face discussion lasted for a duration of 2 minutes. He has one and has not changes to make at this time. Not available 09/11/2023 08:11:30 11/27/2023 [id number] For joint pain, try CURAMIN: combination of curcumin (tumeric) and boswellia, one table three times a day. (either regular or extra strength or plain TUMERIC/CURCUMIN use as directed. or GLUCOSAMINE CHONDROINTIN Not available 11/27/2023 08:09:05 Reason for Referral None Reported. Results Created Date Observation Date Name Description Value Unit Range Abnormal Flag Note LastModifiedBy Organization Detail LastModifiedTime 01/23/20 24 01/23/2024 COMPL ETE BLOOD COUNT W/DIF F WBC 13.91 10_3/ uL 4.4-10 .8 high Not Available [address] [place], [address] 01/23/2024 06:38:15 01/23/20 24 01/23/2024 COMPL ETE BLOOD COUNT W/DIF F RBC 5.26 10_6/ uL 4.36-5 .78 normal Not Available [address] [place], [address] 01/23/2024 06:38:15 01/23/2001/23/2024 COMPL ETE BLOOD COUNT W/DIF F HGB 15.4 g/dL 13.5-1 7.5 normal Not Available [address] [place], [address] 01/23/2024 06:38:15 01/23/2001/23/2024 COMPL ETE BLOOD COUNT W/DIF F HCT 46.0 % 40.0-5 0.0 normal Not Available [address] [place], [address] 01/23/2024 06:38:15 01/23/20 24 01/23/2024 COMPL ETE BLOOD COUNT W/DIF F MCV 88 fL 80-95 normal Not Available [address] [place], [address] 01/23/2024 06:38:15 01/23/20 24 01/23/2024 COMPL ETE BLOOD COUNT W/DIF F MCH 29.3 pg 27.0-3 3.0 normal Not Available [address] [place], [address] 01/23/2024 06:38:15 01/23/20 24 01/23/2024 COMPL ETE BLOOD COUNT W/DIF F MCHC 33.5 % 32.0-3 6.0 normal Not Available [address] [place], [address] 01/23/2024 06:38:15 01/23/20 24 01/23/2024 COMPL ETE BLOOD COUNT W/DIF F RDW 13.2 % 11.8-1 4.1 normal Not Available [address] [place], [address] 01/23/2024 06:38:15 01/23/20 24 01/23/2024 COMPL ETE BLOOD COUNT W/DIF F platelet count 216 10_3/ uL 130-40 0 normal Not Available [address] [place], [address] 01/23/2024 06:38:15 01/23/20 24 01/23/2024 COMPL ETE BLOOD COUNT W/DIF F MPV 10.5 fL 8.0-11 .0 normal Not Available [address] [place], [address] 01/23/2024 06:38:15 01/23/20 24 01/23/2024 COMPL ETE BLOOD COUNT W/DIF F neutrophils % 86.3 % Not Available [address] [place], [address] 01/23/2024 06:38:15 01/23/20 24 01/23/2024 COMPL ETE BLOOD COUNT W/DIF F lymphocytes % 6.8 % Not Available [address] [place], [address] 01/23/2024 06:38:15 01/23/20 24 01/23/2024 COMPL ETE BLOOD COUNT W/DIF F monocytes % 6.3 % Not Available [address] [place], [address] 01/23/2024 06:38:15 01/23/20 24 01/23/2024 COMPL ETE BLOOD COUNT W/DIF F eosinophils % 0.1 % Not Available [address] [place], [address] 01/23/2024 06:38:15 01/23/20 24 01/23/2024 COMPL ETE BLOOD COUNT W/DIF F basophils % 0.2 % Not Available [address] [place], [address] 01/23/2024 06:38:15 01/23/20 24 01/23/2024 COMPL ETE BLOOD COUNT W/DIF F immature grans % 0.3 % Not Available [address] [place], [address] 01/23/2024 06:38:15 01/23/20 24 01/23/2024 COMPL ETE BLOOD COUNT W/DIF F nucleated RBC 0.0 % 0.0-0. 3 normal Not Available [address] [place], [address] 01/23/2024 06:38:15 01/23/20 24 01/23/2024 COMPL ETE BLOOD COUNT W/DIF F absolute neutrophil count 12.00 10_3/ uL 1.2-6. 7 high Not Available [address] [place], [address] 01/23/2024 06:38:15 01/23/20 24 01/23/2024 COMPL ETE BLOOD COUNT W/DIF F absolute lymphocyte count 0.95 10_3/ uL 1.2-3. 4 low Not Available [address] [place], [address] 01/23/2024 06:38:15 01/23/20 24 01/23/2024 COMPL ETE BLOOD COUNT W/DIF F absolute monocyte count 0.88 10_3/ uL 0.1-0. 8 high Not Available [address] [place], [address] 01/23/2024 06:38:15 01/23/20 24 01/23/2024 COMPL ETE BLOOD COUNT W/DIF F absolute eosinophil count 0.01 10_3/ uL 0.0-0. 7 normal Not Available [address] [place], [address] 01/23/2024 06:38:15 01/23/20 24 01/23/2024 COMPL ETE BLOOD COUNT W/DIF F absolute basophil count 0.03 10_3/ uL 0.0-0. 2 normal Not Available [address] [place], [address] 01/23/2024 06:38:15 01/23/20 24 01/23/2024 PROTH ROMBI N TIME prothrombin time 10.5 sec 9.1-11 .1 normal Not Available [address] [place], [address] 01/23/2024 06:54:16 01/23/20 24 01/23/2024 PROTH ROMBI N TIME INR 1.0 0.9-1. 1 normal Recom mike d INR thera peuti c range s for orall y admin ister ed drugs are as follo ws: -Holden dard Inten sity 2.0 to 3.0 -High er Inten sity 3.0 to 4.5 Not Available [address] [place], [address] 01/23/2024 06:54:16 01/23/20 24 01/23/2024 PTT ACTIV ATED PTT activated 25.4 sec 23.6-3 2.8 normal Hepar in Thera peuti c Range for PTT = 52-84 secon ds New Hepar in Thera peuti c Range 09/24 Not Available [address] [place], [address] 01/23/2024 06:54:16 01/23/20 24 01/23/2024 COMPR EHENS DARIUS METAB OLIC PANEL calcium 9.1 mg/dL 8.5-10 .1 normal Not Available [address] [place], [address] 01/23/2024 06:54:18 01/23/20 24 01/23/2024 COMPR EHENS DARIUS METAB OLIC PANEL glucose 142 mg/dL 74-106 high Not Available Devendra sanders [address] [place], [address] 01/23/2024 06:54:18 01/23/20 24 01/23/2024 COMPR EHENS DARIUS METAB OLIC PANEL BUN 26 mg/dL 7-18 high Not Available Devendra sanders [address] [place], [address] 01/23/2024 06:54:18 01/23/20 24 01/23/2024 COMPR EHENS DARIUS METAB OLIC PANEL creatinine 1.5 mg/dL 0.70-1 .30 high Not Available [address] [place], [address] 01/23/2024 06:54:18 01/23/20 24 01/23/2024 COMPR EHENS DARIUS METAB OLIC PANEL estimated GFR 46.48 mL/min /1.73m 2 The eGFR is calcu lated from a serum creat inine using the CKD-E PI 2020 equat ion. Other varia bles requi red for the equat ion are gende r and age; this equat ion does not inclu de a race coeff icien t. This equat ion has simil ar overa ll perfo rmanc e to previ ous equat ions excep t value s may diffe r, in parti cular , in patie nts with highe r value s of eGFR and young er-ag ed adult s. Not Available [address] [place], [address] 01/23/2024 06:54:18 01/23/20 24 01/23/2024 COMPR EHENS DARIUS METAB OLIC PANEL total protein 7.5 g/dL 6.4-8. 2 normal Not Available [address] [place], [address] 01/23/2024 06:54:18 01/23/20 24 01/23/2024 COMPR EHENS DARIUS METAB OLIC PANEL albumin 4.1 g/dL 3.4-5. 0 normal Not Available [address] [place], [address] 01/23/2024 06:54:18 01/23/20 24 01/23/2024 COMPR EHENS DARIUS METAB OLIC PANEL bilirubin, total 1.3 mg/dL 0.2-1. 0 high Not Available [address] [place], [address] 01/23/2024 06:54:18 01/23/20 24 01/23/2024 COMPR EHENS DARIUS METAB OLIC PANEL alk phos 76 U/L 46-116 normal Not Available [address] [place], [address] 01/23/2024 06:54:18 01/23/20 24 01/23/2024 COMPR EHENS DARIUS METAB OLIC PANEL sodium 140 mmol/ L 136-14 5 normal Not Available [address] [place], [address] 01/23/2024 06:54:18 01/23/20 24 01/23/2024 COMPR EHENS DARIUS METAB OLIC PANEL potassium 4.3 mmol/ L 3.5-5. 1 normal Not Available [address] [place], [address] 01/23/2024 06:54:18 01/23/20 24 01/23/2024 COMPR EHENS DARIUS METAB OLIC PANEL chloride 103 mmol/ L 98-107 normal Not Available [address] [place], [address] 01/23/2024 06:54:18 01/23/20 24 01/23/2024 COMPR EHENS DARIUS METAB OLIC PANEL CO2 26.0 mmol/ L 21.0-3 2.0 normal Not Available [address] [place], [address] 01/23/2024 06:54:18 01/23/20 24 01/23/2024 COMPR EHENS DARIUS METAB OLIC PANEL anion gap 11.0 mmol/ L 3-11 normal Not Available [address] [place], [address] 01/23/2024 06:54:18 01/23/20 24 01/23/2024 COMPR EHENS DARIUS METAB OLIC PANEL AST 16 U/L 15-37 normal Not Available Devendra sanders [address] [place], [address] 01/23/2024 06:54:18 01/23/20 24 01/23/2024 COMPR EHENS DARIUS METAB OLIC PANEL ALT 26 U/L 16-63 normal Not Available Devendra sanders [address] [place], [address] 01/23/2024 06:54:18 01/23/20 24 01/23/2024 G B A Positi ve Not Available [address] [place], [address] 01/23/2024 07:46:20 01/23/20 24 01/23/2024 G abs NEGATI VE Not Available [address] [place], [address] 01/23/2024 07:46:20 01/23/20 24 01/23/2024 PROCA LCITO SORAIDA procalcitoni n 1.3 NG/mL PCT Value (ng/m L): Inter preta tion: <0.5 Low risk for sever e sepsi s/sep tic shock >or=0 .5 and <2.0 Sever e sepsi s/sep tic shock is possi ble >or=2 .0 High risk for sever e sepsi s/sep tic shock Note: Decis ions regar ding antib iotic thera py shoul d NOT be based solel y on proca lcito soraida dorota ntrat ions. A proca lcito soraida dorota ntrat ion of <0.5 ng/mL does not entir ada exclu de syste delfin bacte rial infec tion/ sepsi s. Corre latio n with the full clini cristina, imagi ng, and labor atory findi ngs is requi red for a compl ete sepsi s evalu ation . Addit ional ly, eleva dianne proca lcito soraida dorota ntrat ions may not alway s be relat ed to syste delfin bacte rial infec tion and can be seen in the setti ng of sever e wylie , major traum a, major surge ry, pancr eatit is, bowel ische ward, asept ic syste delfin shock (anap hylac tic, hemor rhagi c, or cardi ogeni c), renal insuf ficie ncy, medul martha thyro id cance r, small cell lung cance r, drugs stimu latin g pro-i nflam mator y cytok prabhakar, invas darius funga l infec tions , Kawas renita disea se, among other cause s. Not Available [address] [place], [address] 01/23/2024 10:38:42 01/23/20 24 01/23/2024 C DIFF PCR C diff PCR Negati ve negati ve Not Available [address] [place], [address] 01/23/2024 11:10:47 01/23/20 24 01/23/2024 LACTO LAZARUS N DETEC TION lactoferrin detection Lacto lazarus n Detec tion RESUL T POSIT DARIUS Not Available [address] [place], [address] 01/23/2024 18:33:45 01/23/20 24 01/23/2024 FECAL BACTE RIAL PATHO GENS PCR salmonella PCR Negati ve negati ve Not Available [address] [place], [address] 01/24/2024 08:27:11 01/23/20 24 01/23/2024 FECAL BACTE RIAL PATHO GENS PCR shigella/ent eroinvasive ecoli Negati ve negati ve Not Available [address] [place], [address] 01/24/2024 08:27:11 01/23/20 24 01/23/2024 FECAL BACTE RIAL PATHO GENS PCR campylobacte r PCR Negati ve negati ve Not Available [address] [place], [address] 01/24/2024 08:27:11 01/23/20 24 01/23/2024 FECAL BACTE RIAL PATHO GENS PCR shiga toxin PCR Negati ve negati ve Test perfo rmed or refer red by [facility] [address] [place] [address] Not Available [address] [place], [address] 01/24/2024 08:27:11 01/24/20 24 01/24/2024 HEMOG LOBIN /ISAIAS TOCRI T HGB 13.3 g/dL 13.5-1 7.5 low Resul t verif ied by repea t jl sis Not Available [address] [place], [address] 01/24/2024 01:01:17 01/24/20 24 01/24/2024 HEMOG LOBIN /ISAIAS TOCRI T HCT 38.9 % 40.0-5 0.0 low Not Available [address] [place], [address] 01/24/2024 01:01:17 01/24/20 24 01/24/2024 COMPL ETE BLOOD COUNT W/DIF F WBC 10.54 10_3/ uL 4.4-10 .8 normal Not Available [address] [place], [address] 01/24/2024 07:01:55 01/24/20 24 01/24/2024 COMPL ETE BLOOD COUNT W/DIF F RBC 4.41 10_6/ uL 4.36-5 .78 normal Not Available [address] [place], [address] 01/24/2024 07:01:55 01/24/20 24 01/24/2024 COMPL ETE BLOOD COUNT W/DIF F HGB 13.1 g/dL 13.5-1 7.5 low Not Available [address] [place], [address] 01/24/2024 07:01:55 01/24/20 24 01/24/2024 COMPL ETE BLOOD COUNT W/DIF F HCT 38.8 % 40.0-5 0.0 low Not Available [address] [place], [address] 01/24/2024 07:01:55 01/24/20 24 01/24/2024 COMPL ETE BLOOD COUNT W/DIF F MCV 88 fL 80-95 normal Not Available Devendra [address] [place], [address] 01/24/2024 07:01:55 01/24/20 24 01/24/2024 COMPL ETE BLOOD COUNT W/DIF F MCH 29.7 pg 27.0-3 3.0 normal Not Available [address] [place], [address] 01/24/2024 07:01:55 01/24/2001/24/2024 COMPL ETE BLOOD COUNT W/DIF F MCHC 33.8 % 32.0-3 6.0 normal Not Available [address] [place], [address] 01/24/2024 07:01:55 01/24/20 24 01/24/2024 COMPL ETE BLOOD COUNT W/DIF F RDW 13.6 % 11.8-1 4.1 normal Not Available [address] [place], [address] 01/24/2024 07:01:55 01/24/20 24 01/24/2024 COMPL ETE BLOOD COUNT W/DIF F platelet count 178 10_3/ uL 130-40 0 normal Not Available [address] [place], [address] 01/24/2024 07:01:55 01/24/20 24 01/24/2024 COMPL ETE BLOOD COUNT W/DIF F MPV 11.2 fL 8.0-11 .0 high Not Available [address] [place], [address] 01/24/2024 07:01:55 01/24/20 24 01/24/2024 COMPL ETE BLOOD COUNT W/DIF F neutrophils % 83.1 % Not Available Farida tubbs [address] [place], [address] 01/24/2024 07:01:55 01/24/20 24 01/24/2024 COMPL ETE BLOOD COUNT W/DIF F lymphocytes % 8.8 % Not Available [address] [place], [address] 01/24/2024 07:01:55 01/24/20 24 01/24/2024 COMPL ETE BLOOD COUNT W/DIF F monocytes % 7.4 % Not Available [address] [place], [address] 01/24/2024 07:01:55 01/24/20 24 01/24/2024 COMPL ETE BLOOD COUNT W/DIF F eosinophils % 0.1 % Not Available [address] [place], [address] 01/24/2024 07:01:55 01/24/20 24 01/24/2024 COMPL ETE BLOOD COUNT W/DIF F basophils % 0.3 % Not Available [address] [place], [address] 01/24/2024 07:01:55 01/24/2001/24/2024 COMPL ETE BLOOD COUNT W/DIF F immature grans % 0.3 % Not Available [address] [place], [address] 01/24/2024 07:01:55 01/24/20 24 01/24/2024 COMPL ETE BLOOD COUNT W/DIF F nucleated RBC 0.0 % 0.0-0. 3 normal Not Available [address] [place], [address] 01/24/2024 07:01:55 01/24/20 24 01/24/2024 COMPL ETE BLOOD COUNT W/DIF F absolute neutrophil count 8.76 10_3/ uL 1.2-6. 7 high Not Available [address] [place], [address] 01/24/2024 07:01:55 01/24/20 24 01/24/2024 COMPL ETE BLOOD COUNT W/DIF F absolute lymphocyte count 0.93 10_3/ uL 1.2-3. 4 low Not Available [address] [place], [address] 01/24/2024 07:01:55 01/24/20 24 01/24/2024 COMPL ETE BLOOD COUNT W/DIF F absolute monocyte count 0.78 10_3/ uL 0.1-0. 8 normal Not Available [address] [place], [address] 01/24/2024 07:01:55 01/24/20 24 01/24/2024 COMPL ETE BLOOD COUNT W/DIF F absolute eosinophil count 0.01 10_3/ uL 0.0-0. 7 normal Not Available [address] [place], [address] 01/24/2024 07:01:55 01/24/20 24 01/24/2024 COMPL ETE BLOOD COUNT W/DIF F absolute basophil count 0.03 10_3/ uL 0.0-0. 2 normal Not Available [address] [place], [address] 01/24/2024 07:01:55 01/24/20 24 01/24/2024 COMPR EHENS DARIUS METAB OLIC PANEL calcium 9.0 mg/dL 8.5-10 .1 normal Not Available [address] [place], [address] 01/24/2024 07:30:56 01/24/20 24 01/24/2024 COMPR EHENS DARIUS METAB OLIC PANEL glucose 117 mg/dL 74-106 high Not Available Devendra sanders [address] [place], [address] 01/24/2024 07:30:56 01/24/20 24 01/24/2024 COMPR EHENS DARIUS METAB OLIC PANEL BUN 19 mg/dL 7-18 high Not Available Devendra sanders [address] [place], [address] 01/24/2024 07:30:56 01/24/20 24 01/24/2024 COMPR EHENS DARIUS METAB OLIC PANEL creatinine 1.3 mg/dL 0.70-1 .30 normal Not Available [address] [place], [address] 01/24/2024 07:30:56 01/24/20 24 01/24/2024 COMPR EHENS DARIUS METAB OLIC PANEL estimated GFR 55.19 mL/min /1.73m 2 The eGFR is calcu lated from a serum creat inine using the CKD-E PI 2020 equat ion. Other varia bles requi red for the equat ion are gende r and age; this equat ion does not inclu de a race coeff icien t. This equat ion has simil ar overa ll perfo rmanc e to previ ous equat ions excep t value s may diffe r, in parti cular , in patie nts with highe r value s of eGFR and young er-ag ed adult s. Not Available [address] [place], [address] 01/24/2024 07:30:56 01/24/20 24 01/24/2024 COMPR EHENS DARIUS METAB OLIC PANEL total protein 6.5 g/dL 6.4-8. 2 normal Not Available [address] [place], [address] 01/24/2024 07:30:56 01/24/20 24 01/24/2024 COMPR EHENS DARIUS METAB OLIC PANEL albumin 3.4 g/dL 3.4-5. 0 normal Not Available [address] [place], [address] 01/24/2024 07:30:56 01/24/20 24 01/24/2024 COMPR EHENS DARIUS METAB OLIC PANEL bilirubin, total 1.2 mg/dL 0.2-1. 0 high Not Available [address] [place], [address] 01/24/2024 07:30:56 01/24/20 24 01/24/2024 COMPR EHENS DARIUS METAB OLIC PANEL alk phos 59 U/L 46-116 normal Not Available [address] [place], [address] 01/24/2024 07:30:56 01/24/20 24 01/24/2024 COMPR EHENS DARIUS METAB OLIC PANEL sodium 141 mmol/ L 136-14 5 normal Not Available [address] [place], [address] 01/24/2024 07:30:56 01/24/20 24 01/24/2024 COMPR EHENS DARIUS METAB OLIC PANEL potassium 4.4 mmol/ L 3.5-5. 1 normal Not Available [address] [place], [address] 01/24/2024 07:30:56 01/24/20 24 01/24/2024 COMPR EHENS DARIUS METAB OLIC PANEL chloride 105 mmol/ L 98-107 normal Not Available [address] [place], [address] 01/24/2024 07:30:56 01/24/20 24 01/24/2024 COMPR EHENS DARIUS METAB OLIC PANEL CO2 25.8 mmol/ L 21.0-3 2.0 normal Not Available [address] [place], [address] 01/24/2024 07:30:56 01/24/20 24 01/24/2024 COMPR EHENS DARIUS METAB OLIC PANEL anion gap 10.2 mmol/ L 3-11 normal Not Available [address] [place], [address] 01/24/2024 07:30:56 01/24/20 24 01/24/2024 COMPR EHENS DARIUS METAB OLIC PANEL AST 17 U/L 15-37 normal Not Available Devendra sanders [address] [place], [id number] 01/24/2024 07:30:56 01/24/20 24 01/24/2024 COMPR EHENS DARIUS METAB OLIC PANEL ALT 21 U/L 16-63 normal Not Available Devendra sanders [address] [place], [address] 01/24/2024 07:30:56 01/24/2001/25/2024 BLOOD CULTU RE ( AGE => 12 YRS) blood culture ( age => 12 yrs) Blood Cultu re ( Age => 12 Yrs) NO GROWT H 24 HOURS Not Available [address] [place], [id number] 01/25/2024 02:55:03 01/24/20 24 01/25/2024 BLOOD CULTU RE ( AGE => 12 YRS) blood culture ( age => 12 yrs) Blood Cultu re ( Age => 12 Yrs) NO GROWT H 24 HOURS Not Available [address] [place], [address] 01/25/2024 02:56:06 01/24/20 24 01/26/2024 BLOOD CULTU RE ( AGE => 12 YRS) blood culture ( age => 12 yrs) Blood Cultu re ( Age => 12 Yrs) NO GROWT H 48 HOURS Not Available [address] [place], [address] 01/26/2024 02:54:33 01/24/2001/26/2024 BLOOD CULTU RE ( AGE => 12 YRS) blood culture ( age => 12 yrs) Blood Cultu re ( Age => 12 Yrs) NO GROWT H 48 HOURS Not Available [address] [place], [id number] 01/26/2024 02:58:33 01/24/20 24 01/27/2024 BLOOD CULTU RE ( AGE => 12 YRS) blood culture ( age => 12 yrs) Blood Cultu re ( Age => 12 Yrs) NO GROWT H 72 HOURS Not Available [address] [place], [id number] 01/27/2024 02:54:37 01/24/20 24 01/27/2024 BLOOD CULTU RE ( AGE => 12 YRS) blood culture ( age => 12 yrs) Blood Cultu re ( Age => 12 Yrs) NO GROWT H 72 HOURS Not Available [address] [place], [address] 01/27/2024 02:54:39 01/24/20 24 01/28/2024 BLOOD CULTU RE ( AGE => 12 YRS) blood culture ( age => 12 yrs) Blood Cultu re ( Age => 12 Yrs) NO GROWT H 96 HOURS Not Available [address] [place], [address] 01/28/2024 02:57:25 01/24/20 24 01/28/2024 BLOOD CULTU RE ( AGE => 12 YRS) blood culture ( age => 12 yrs) Blood Cultu re ( Age => 12 Yrs) NO GROWT H 96 HOURS Not Available [address] [place], [address] 01/28/2024 02:57:27 01/24/20 24 01/29/2024 BLOOD CULTU RE ( AGE => 12 YRS) blood culture ( age => 12 yrs) Blood Cultu re ( Age => 12 Yrs) NO GROWT H 120 HOURS Not Available [address] [place], [address] 01/29/2024 02:54:34 01/24/20 24 01/29/2024 BLOOD CULTU RE ( AGE => 12 YRS) blood culture ( age => 12 yrs) Blood Cultu re ( Age => 12 Yrs) NO GROWT H 120 HOURS Not Available [address] [place], [address] 01/29/2024 02:54:37 01/25/20 24 01/25/2024 COMPL ETE BLOOD COUNT W/DIF F WBC 7.22 10_3/ uL 4.4-10 .8 normal Not Available [address] [place], [address] 01/25/2024 11:59:12 01/25/20 24 01/25/2024 COMPL ETE BLOOD COUNT W/DIF F RBC 4.01 10_6/ uL 4.36-5 .78 low Not Available [address] [place], [address] 01/25/2024 11:59:12 01/25/20 24 01/25/2024 COMPL ETE BLOOD COUNT W/DIF F HGB 12.0 g/dL 13.5-1 7.5 low Not Available [address] [place], [address] 01/25/2024 11:59:12 01/25/20 24 01/25/2024 COMPL ETE BLOOD COUNT W/DIF F HCT 35.7 % 40.0-5 0.0 low Not Available [address] [place], [address] 01/25/2024 11:59:12 01/25/20 24 01/25/2024 COMPL ETE BLOOD COUNT W/DIF F MCV 89 fL 80-95 normal Not Available [address] [place], [address] 01/25/2024 11:59:12 01/25/20 24 01/25/2024 COMPL ETE BLOOD COUNT W/DIF F MCH 29.9 pg 27.0-3 3.0 normal Not Available [address] [place], [address] 01/25/2024 11:59:12 01/25/20 24 01/25/2024 COMPL ETE BLOOD COUNT W/DIF F MCHC 33.6 % 32.0-3 6.0 normal Not Available [address] [place], [address] 01/25/2024 11:59:12 01/25/20 24 01/25/2024 COMPL ETE BLOOD COUNT W/DIF F RDW 13.3 % 11.8-1 4.1 normal Not Available [address] [place], [address] 01/25/2024 11:59:12 01/25/20 24 01/25/2024 COMPL ETE BLOOD COUNT W/DIF F platelet count 155 10_3/ uL 130-40 0 normal Not Available [address] [place], [address] 01/25/2024 11:59:12 01/25/20 24 01/25/2024 COMPL ETE BLOOD COUNT W/DIF F MPV 10.5 fL 8.0-11 .0 normal Not Available [address] [place], [address] 01/25/2024 11:59:12 01/25/20 24 01/25/2024 COMPL ETE BLOOD COUNT W/DIF F neutrophils % 78.4 % Not Available [address] [place], [address] 01/25/2024 11:59:12 01/25/20 24 01/25/2024 COMPL ETE BLOOD COUNT W/DIF F lymphocytes % 12.7 % Not Available [address] [place], [address] 01/25/2024 11:59:12 01/25/20 24 01/25/2024 COMPL ETE BLOOD COUNT W/DIF F monocytes % 7.5 % Not Available [address] [place], [address] 01/25/2024 11:59:12 01/25/20 24 01/25/2024 COMPL ETE BLOOD COUNT W/DIF F eosinophils % 0.6 % Not Available [address] [place], [address] 01/25/2024 11:59:12 01/25/20 24 01/25/2024 COMPL ETE BLOOD COUNT W/DIF F basophils % 0.4 % Not Available [address] [place], [address] 01/25/2024 11:59:12 01/25/20 24 01/25/2024 COMPL ETE BLOOD COUNT W/DIF F immature grans % 0.4 % Not Available [address] [place], [address] 01/25/2024 11:59:12 01/25/20 24 01/25/2024 COMPL ETE BLOOD COUNT W/DIF F nucleated RBC 0.0 % 0.0-0. 3 normal Not Available [address] [place], [address] 01/25/2024 11:59:12 01/25/20 24 01/25/2024 COMPL ETE BLOOD COUNT W/DIF F absolute neutrophil count 5.66 10_3/ uL 1.2-6. 7 normal Not Available [address] [place], [address] 01/25/2024 11:59:12 01/25/20 24 01/25/2024 COMPL ETE BLOOD COUNT W/DIF F absolute lymphocyte count 0.92 10_3/ uL 1.2-3. 4 low Not Available [address] [place], [address] 01/25/2024 11:59:12 01/25/20 24 01/25/2024 COMPL ETE BLOOD COUNT W/DIF F absolute monocyte count 0.54 10_3/ uL 0.1-0. 8 normal Not Available [address] [place], [address] 01/25/2024 11:59:12 01/25/20 24 01/25/2024 COMPL ETE BLOOD COUNT W/DIF F absolute eosinophil count 0.04 10_3/ uL 0.0-0. 7 normal Not Available [address] [place], [address] 01/25/2024 11:59:12 01/25/20 24 01/25/2024 COMPL ETE BLOOD COUNT W/DIF F absolute basophil count 0.03 10_3/ uL 0.0-0. 2 normal Not Available [address] [place], [address] 01/25/2024 11:59:12 01/25/20 24 01/25/2024 BASIC METAB OLIC PANEL calcium 8.7 mg/dL 8.5-10 .1 normal Not Available [address] [place], [address] 01/25/2024 12:06:12 01/25/20 24 01/25/2024 BASIC METAB OLIC PANEL glucose 143 mg/dL 74-106 high Not Available Devendra sanders [address] [place], [address] 01/25/2024 12:06:12 01/25/20 24 01/25/2024 BASIC METAB OLIC PANEL BUN 14 mg/dL 7-18 normal Not Available Devendra sanders [address] [place], [address] 01/25/2024 12:06:12 01/25/20 24 01/25/2024 BASIC METAB OLIC PANEL creatinine 1.2 mg/dL 0.70-1 .30 normal Not Available [address] [place], [address] 01/25/2024 12:06:12 01/25/20 24 01/25/2024 BASIC METAB OLIC PANEL estimated GFR 60.75 mL/min /1.73m 2 The eGFR is calcu lated from a serum creat inine using the CKD-E PI 2020 equat ion. Other varia bles requi red for the equat ion are gende r and age; this equat ion does not inclu de a race coeff icien t. This equat ion has simil ar overa ll perfo rmanc e to previ ous equat ions excep t value s may diffe r, in parti cular , in patie nts with highe r value s of eGFR and young er-ag ed adult s. Not Available [address] [place], [address] 01/25/2024 12:06:12 01/25/20 24 01/25/2024 BASIC METAB OLIC PANEL sodium 141 mmol/ L 136-14 5 normal Not Available [address] [place], [address] 01/25/2024 12:06:12 01/25/20 24 01/25/2024 BASIC METAB OLIC PANEL potassium 4.1 mmol/ L 3.5-5. 1 normal Not Available [address] [place], [address] 01/25/2024 12:06:12 01/25/20 24 01/25/2024 BASIC METAB OLIC PANEL chloride 104 mmol/ L 98-107 normal Not Available [address] [place], [address] 01/25/2024 12:06:12 01/25/20 24 01/25/2024 BASIC METAB OLIC PANEL CO2 26.9 mmol/ L 21.0-3 2.0 normal Not Available [address] [place], [address] 01/25/2024 12:06:12 01/25/20 24 01/25/2024 BASIC METAB OLIC PANEL anion gap 10.1 mmol/ L 3-11 normal Not Available [address] [place], [address] 01/25/2024 12:06:12 01/27/20 24 01/27/2024 COMPL ETE BLOOD COUNT W/DIF F WBC 6.28 10_3/ uL 4.4-10 .8 normal Not Available [address] [place], [address] 01/27/2024 12:31:20 01/27/20 24 01/27/2024 COMPL ETE BLOOD COUNT W/DIF F RBC 4.37 10_6/ uL 4.36-5 .78 normal Not Available [address] [place], [address] 01/27/2024 12:31:20 01/27/20 24 01/27/2024 COMPL ETE BLOOD COUNT W/DIF F HGB 13.2 g/dL 13.5-1 7.5 low Not Available [address] [place], [address] 01/27/2024 12:31:20 01/27/20 24 01/27/2024 COMPL ETE BLOOD COUNT W/DIF F HCT 38.6 % 40.0-5 0.0 low Not Available [address] [place], [address] 01/27/2024 12:31:20 01/27/20 24 01/27/2024 COMPL ETE BLOOD COUNT W/DIF F MCV 88 fL 80-95 normal Not Available [address] [place], [address] 01/27/2024 12:31:20 01/27/20 24 01/27/2024 COMPL ETE BLOOD COUNT W/DIF F MCH 30.2 pg 27.0-3 3.0 normal Not Available [address] [place], [address] 01/27/2024 12:31:20 01/27/20 24 01/27/2024 COMPL ETE BLOOD COUNT W/DIF F MCHC 34.2 % 32.0-3 6.0 normal Not Available [address] [place], [address] 01/27/2024 12:31:20 01/27/20 24 01/27/2024 COMPL ETE BLOOD COUNT W/DIF F RDW 13.2 % 11.8-1 4.1 normal Not Available [address] [place], [address] 01/27/2024 12:31:20 01/27/20 24 01/27/2024 COMPL ETE BLOOD COUNT W/DIF F platelet count 214 10_3/ uL 130-40 0 normal Not Available [address] [place], [address] 01/27/2024 12:31:20 01/27/20 24 01/27/2024 COMPL ETE BLOOD COUNT W/DIF F MPV 10.5 fL 8.0-11 .0 normal Not Available [address] [place], [address] 01/27/2024 12:31:20 01/27/20 24 01/27/2024 COMPL ETE BLOOD COUNT W/DIF F neutrophils % 72.9 % Not Available [address] [place], [address] 01/27/2024 12:31:20 01/27/20 24 01/27/2024 COMPL ETE BLOOD COUNT W/DIF F lymphocytes % 15.6 % Not Available [address] [place], [address] 01/27/2024 12:31:20 01/27/20 24 01/27/2024 COMPL ETE BLOOD COUNT W/DIF F monocytes % 9.6 % Not Available [address] [place], [address] 01/27/2024 12:31:20 01/27/20 24 01/27/2024 COMPL ETE BLOOD COUNT W/DIF F eosinophils % 1.1 % Not Available [address] [place], [address] 01/27/2024 12:31:20 01/27/20 24 01/27/2024 COMPL ETE BLOOD COUNT W/DIF F basophils % 0.5 % Not Available [address] [place], [address] 01/27/2024 12:31:20 01/27/20 24 01/27/2024 COMPL ETE BLOOD COUNT W/DIF F immature grans % 0.3 % Not Available [address] [place], [address] 01/27/2024 12:31:20 01/27/20 24 01/27/2024 COMPL ETE BLOOD COUNT W/DIF F nucleated RBC 0.0 % 0.0-0. 3 normal Not Available [address] [place], [address] 01/27/2024 12:31:20 01/27/20 24 01/27/2024 COMPL ETE BLOOD COUNT W/DIF F absolute neutrophil count 4.58 10_3/ uL 1.2-6. 7 normal Not Available [address] [place], [address] 01/27/2024 12:31:20 01/27/20 24 01/27/2024 COMPL ETE BLOOD COUNT W/DIF F absolute lymphocyte count 0.98 10_3/ uL 1.2-3. 4 low Not Available [address] [place], [address] 01/27/2024 12:31:20 01/27/20 24 01/27/2024 COMPL ETE BLOOD COUNT W/DIF F absolute monocyte count 0.60 10_3/ uL 0.1-0. 8 normal Not Available [address] [place], [address] 01/27/2024 12:31:20 01/27/20 24 01/27/2024 COMPL ETE BLOOD COUNT W/DIF F absolute eosinophil count 0.07 10_3/ uL 0.0-0. 7 normal Not Available [address] [place], [address] 01/27/2024 12:31:20 01/27/20 24 01/27/2024 COMPL ETE BLOOD COUNT W/DIF F absolute basophil count 0.03 10_3/ uL 0.0-0. 2 normal Not Available [address] [place], [address] 01/27/2024 12:31:20 02/19/20 24 02/19/2024 COMPL ETE BLOOD COUNT NO DIFF WBC 7.09 10_3/ uL 4.4-10 .8 normal Not Available [address] [place], [address] 02/19/2024 19:24:05 02/19/20 24 02/19/2024 COMPL ETE BLOOD COUNT NO DIFF RBC 4.85 10_6/ uL 4.36-5 .78 normal Not Available [address] [place], [address] 02/19/2024 19:24:05 02/19/2002/19/2024 COMPL ETE BLOOD COUNT NO DIFF HGB 14.4 g/dL 13.5-1 7.5 normal Not Available [address] [place], [address] 02/19/2024 19:24:05 02/19/20 24 02/19/2024 COMPL ETE BLOOD COUNT NO DIFF HCT 43.6 % 40.0-5 0.0 normal Not Available [address] [place], [address] 02/19/2024 19:24:02/19/2002/19/2024 COMPL ETE BLOOD COUNT NO DIFF MCV 90 fL 80-95 normal Not Available Devendra [address] [place], [address] 02/19/2024 19:24:05 02/19/2002/19/2024 COMPL ETE BLOOD COUNT NO DIFF MCH 29.7 pg 27.0-3 3.0 normal Not Available [address] [place], [address] 02/19/2024 19:24:02/19/2002/19/2024 COMPL ETE BLOOD COUNT NO DIFF MCHC 33.0 % 32.0-3 6.0 normal Not Available [address] [place], [address] 02/19/2024 19:24:05 02/19/2002/19/2024 COMPL ETE BLOOD COUNT NO DIFF RDW 12.9 % 11.8-1 4.1 normal Not Available [address] [place], [address] 02/19/2024 19:24:02/19/2002/19/2024 COMPL ETE BLOOD COUNT NO DIFF platelet count 208 10_3/ uL 130-40 0 normal Not Available [address] [place], [address] 02/19/2024 19:24:05 02/19/20 24 02/19/2024 COMPL ETE BLOOD COUNT NO DIFF MPV 11.3 fL 8.0-11 .0 high Not Available [address] [place], [address] 02/19/2024 19:24:05 02/19/20 24 02/19/2024 LAZARUS TIN ferritin 106 NG/mL 26-[address] [facility] (Registration ) [address] [place] [address] [place], [address], 02/19/2024 19:41:03 01/23/20 24 01/23/2024 CT, abdom en + pelvi s, w/ contr ast Patien t Name: Callum Reyes Unit #: [id number] Loc: ER Orderi ng Provid er: Lisa Hidalgo DO Accoun t #: [id number] Status : REG ER Primar y Care Provid er: Analia Deras M.D. Date of Exam: 02/09 Sex: M : 1940 Age: 83 Exam(s ) a CT:CT abdome n pelvis w Exam(s ) CT ABDOME N PELVIS W EXAM: CT ABDOME N PELVIS W CLINIC AL HISTOR Y: gi bleedi ng. TECHNI QUE: Imagin g Protoc ol: Axial comput ed tomogr aphy images with antonio l and sagitt al reform atted images were create d and review ed CONTRA ST MATERI AL: Intrav enous: Omnipa que-35 0 100cc Oral: None COMPAR MARLIN: CT CT ABDOME N PELVIS W from 2020 FINDIN GS: VISUAL IZED LUNG BASES: No nodule s nor pleura l effusi ons eviden t. Elevat ed left hemidi aphrag m again noted. Bilate ral gyneco mastia again noted. ABDOME N: LIVER: There are no focal hepati c lesion s eviden t. No dilate d intrah epatic ducts. GALLBL ADDER/ BILIAR Y: No obviou s gallbl adder pathol ogy. CBD is not dilate d. PANCRE : No eviden ce of pancre atic mass nor dilata tion of the pancre atic duct. SPLEEN : Spleen is not enlarg ed. No obviou s intras plenic lesion s. Spleni c and portal veins are patent . ADRENA LS: There are no signif icant adrena l masses . KIDNEY S:No cysts eviden t. No solid renal masses . No calcul i nor hydron ephros is.. ABDOMI NAL AORTA: Abdomi nal aorta is not enlarg ed. Celiac , SMA, and inferi or mesent tasneem arteri es are patent . LYMPH NODES: There is no retrop eriton eal nor paraao rtic adenop athy. ABDOMI NAL WALL: No eviden ce of signif icant anteri or abdomi nal wall nor inguin al hernia . GI: There is signif icant coliti s patter n involv ing the colon at and distal to the spleni c flexur e. Also involv ing the rectum . The colon wall is thicke ynoy-ed ematou s to 1 cm thickn ess. Simila r findin gs not seen in the right- side of the colon. There is some mild a spot-m oderat e ascite s in the pelvis which is most probab ly relate d to the coliti s. There is no eviden ce of small- bowel obstru ction. PELVIS : GI: Append ix diffic ult to identi fy but no eviden ce of obviou s acute append icitis .No eviden ce of sigmoi d divert iculit is. LYMPH NODES: There is no intrap elvic nor inguin al adenop athy. REPROD UCTIVE : Prosta te gland is surgic ally absent . Semina l vesicl es also not identi fied. URINAR Y BLADDE R: There is some diffus e bladde r wall thicke yesy probab ly relate d to cystit is or under disten janell. OSSEOU S: No fractu res and no signif icant blasti c nor lytic osseou s lesion s. Sacroi liac joints unrema rkable . IMPRES JANELL: 1. The main acute findin g here is severe acute appear ing coliti s of the distal half of the colon includ ing the rectos igmoid . There is small- modera te amount of ascite s in the pelvis which is most probab ly relate d to this. There is no eviden ce of bowel obstru ction nor free air. No eviden ce of signif icant divert icular diseas e. 2. Prosta te and semina l vesicl es are surgic ally absent . 3. Bladde r wall is diffus ada thicke yony. Either relate d to under disten janell or cystit is. Called by myself to ER physic sharifa. RADIAT ION DOSE DELIVE RED: 995.77 mGy.cm Total DLP DATA REPOSI TORY: All CT scans at this facili ty are submit dianne to the [facility] al Radiol ogy Data Regist ry (NRDR) Dose Index Regist ry (DIR) with the [place] all gran[place] of Radiol ogy (ACR). RADIAT ION OPTIMI ZATION : All CT scans at this facili ty use at least one of these dose optimi zation techni ques: automa dianne exposu re contro l; mA and/or kV adjust ment per patien t size (inclu magaly target ed exams where dose is matche d to clinic al indica tion); or iterat darius recons tructi on. 06-0 007: Total DLP = 0.00 mGy-cm Ordere d By: Lisa Hidalgo DO CC: ------ ------ ------ ------ ------ ------ ------ ------ ------ ------ ------ ------ ---- Dictat ed By: Lorenzo Salmeron M.D. [id number] Transc ribed By: Jaron VALERA,Cynthia wellington 0847 This is privil eged, confid ential inform ation intend ed only for the provid er named. Any use or distri bution by any person other than this provid er is strict ly prohib ited. If you receiv e this report in error, please notify us immedi estrellaly at and return the origin al report to us at the addres s above. Thank- you. [facility] [address] [place], [address] 01/23/2024 20:43:56 05/04/20 24 02/02/2021 MRI, brain + brain stem No observ ation record ed. Not Available 05/04 16:34:59 05/04/20 24 12/12/2021 MRI, neck No observ ation record ed. Not Available 05/04 16:35:01 05/04/20 24 09/06/2022 CT, abdom en + pelvi s No observ ation record ed. Not Available 05/04 16:35:05 05/04/20 24 01/30/2022 imagi ng/di agnos tic resul t No observ ation record ed. Not Available 05/04 16:35:58 05/04/20 24 07/25/2021 imagi ng/di agnos tic resul t No observ ation record ed. Not Available 05/04 16:36:19 05/04/20 24 09/16/2018 imagi ng/di agnos tic resul t No observ ation record ed. Not Available 05/04 16:36:20 05/04/20 24 09/09/2018 imagi ng/di agnos tic resul t No observ ation record ed. Not Available 05/04 16:36:21 05/04/20 24 02/02/2021 imagi ng/di agnos tic resul t No observ ation record ed. Not Available 05/04 16:36:26 05/04/20 24 02/02/2021 imagi ng/di agnos tic resul t No observ ation record ed. Not Available 05/04 16:36:28 05/04/20 24 06/09/2019 imagi ng/di agnos tic resul t No observ ation record ed. Not Available 05/04 16:36:29 Result Notes None recorded. Problems Name Problem SNOMED Code Status Onset Date Resolution Date Notes Provider Name and Address Organization Details Recorded Time History of malignan t neoplasm of prostate 698198619 Active [address], [place], [address] , [facility] 4 20:09:23 Erectile dysfunct ion 126847461 Active [address], [facility] [address] , [facility] 4 20:08:05 Gastroes ophageal reflux disease without esophagi tis 265204736 Active 1959 Chanelle wadsworth, [facility] 4 14:25:10 Low back pain 428109679 Active 1959 pain contract 12/2022, MME=15 mg MD [address], [facility] [address] , [facility] 4 20:11:55 Neck pain 00534057 Active 2014 CES/ [address], [place], [address] , [facility] 4 20:15:07 Pain in toe 905813218 Completed 201404/18/2015 04/13/20 15 - Comments only - Analia Deras MD - This is been waxing and waning, it is not really classic for gout, but will check uric acid level and sediment ation rate, and refer to podiatry . I recommen ded a trial of naproxen 500 mg twice a day, to take with food Problem Code: M79.676; Problem Code Type: ICD-10; Not Available [facility] 3 05:06:37 Adult health examinat ion Completed 201407/13/[address], [place], [address] , [facility] 4 08:36:47 Impacted cerumen 95208314 Completed 201407/07/2015 Problem Code: H61.20; Problem Code Type: ICD-10; MD Sanjay [address], [place], [address] , [facility] 4 20:10:06 Left side sciatica 05088845219 9104 Active [address], [place], [address] , [facility] 4 20:10:23 Benign lipomato us tumor 104789460 Completed 201504/18/2016 04/12/20 16 - Comments only - Analia Deras MD - Relative ly asymptom atic, observat ion for now. Problem Code: D17.9; Problem Code Type: ICD-10; Not Available [facility] 3 05:06:37 Acute maxillar y sinusiti s 25468914 Completed 201612/25/2016 12/05/19 17 - Comments only - Chasidy Gandara APRN - Tender over R maxillar y sinus with pain in R upper gums, purulent nasal discharg e. Start augmenti n BID X 10 days. Problem Code: J01.00; Problem Code Type: ICD-10; Not Available [facility] 3 05:06:37 Localize d eruption of skin 971141251 Completed 201612/25/2016 12/05/19 17 - Comments only - Chasidy Gandara APRN - Resolvin g. Possibly mild case of pityrias is rosea. May use benadryl or other antihist amine for itching. Problem Code: R21; Problem Code Type: ICD-10; Not Available [facility] 3 05:06:38 Actinic keratosi s Completed 201604/10/2017 03/27/20 17 - Comments only - Analia Deras MD - treated with [address] Problem Code: L57.0; Problem Code Type: ICD-10; Not Available [facility] 3 05:06:38 Hammer toe 174729856 Active [address], [place], [address] [place] [address] , [facility] 4 20:08:39 Hyperlip idemia 09709803 Active 2017 CV10= 22, declines statin MD Sanjay [address], [place] [address] , [facility] 4 20:10:43 Impacted cerumen 85378386 Completed 201704/07/2018 03/24/20 18 - Comments only - Analia Deras MD - Removed by nursing. Problem Code: H61.20; Problem Code Type: ICD-10; MD Sanjay [address], [place], [address] [place] [address] , [facility] 4 20:10:06 Impacted cerumen 67231580 Completed 201709/08/2023 05/05/20 20 - Comments only - Mitchell Woods - Patient' s reported slight difficul ty of hearing is likely due to cerumen impactio n as seen sveta yanez. Plan is to irrigate ear canals to remove cerumen. Problem Code: H61.20; Problem Code Type: ICD-10; MD Sanjay [address], [place], [address] , [facility] 4 20:10:06 Essentia l tremor 405782620 Active [address], [place], [address] , [facility] 4 20:08:11 Left upper quadrant pain 943912131 Active 2020 Negative GI workup includin g CT, EGD and colonosc opy. MD Sanjay [address], [place], [address] , [facility] 4 20:11:03 Abnormal weight loss 695943078 Completed 202007/21/2021 Problem Code: R63.4; Problem Code Type: ICD-10; Not Available [facility] 3 05:06:39 COVID-19 957013605 Completed 202110/20/2021 10/06/19 22 - Comments only - Analia Deras MD - minimall y symptoma tic, fully vaccinat ed and boosted. Call if symptoms of chest pain or SOB develop. Problem Code: U07.1; Problem Code Type: ICD-10; Not Available [facility] 3 05:06:39 Benign paroxysm al position al vertigo [id number] Active 2022 ANALIA DERAS MD [address] [place], [place] [address]marita Zurita, [place], [address] , [facility] 4 20:07:58 Right Achilles tendinit is [id number] Completed 201907/11/2022 Problem Code: M76.61; Problem Code Type: ICD-10; Not Available [facility] 3 05:06:48 Adjustme nt disorder [id number] Completed 202004/11/2022 Problem Code: F43.20; Problem Code Type: ICD-10; Not Available [facility] 3 05:06:50 Gastroes ophageal reflux disease [id number] Completed Problem Code: 530.81; Problem Code Type: ICD-9; Not Available [facility] 3 05:06:51 Malignan t tumor of prostate 511007329 Completed 200005/15/2023 Problem Code: C61; Problem Code Type: ICD-10; Not Available [facility] 3 05:06:52 Anemia [id number] Completed 202107/11/2022 Problem Code: D64.9; Problem Code Type: ICD-10; Not Available [facility] 3 05:06:56 Disorder of skin and/or subcutan eous tissue [id number] Completed 201606/19/2017 Problem Code: L98.9; Problem Code Type: ICD-10; Not Available [facility] 3 05:06:58 Tremor [id number] Completed 202005/15/2023 04/13/20 21 - Comments only - Analia Deras MD - right hand only. Mild, has not progesse d rapidly. Brother with Parkin[place]. May be early parkinso ns. He has neurolog y appt coming up. Monitor for now. Problem Code: G25.2; Problem Code Type: ICD-10; Not Available [facility] 3 05:07:01 Impacted cerumen of bilatera l ears [id number] 72458 Completed 201804/11/2022 Problem Code: H61.23; Problem Code Type: ICD-10; Not Available [facility] 3 05:07:02 Nondepen dent alcohol abuse in [facility] n [id number] Completed 200805/15/2023 Problem Code: 305.03; Problem Code Type: ICD-9; ANALIA DERAS MD [facility] [address], [place], [address] , [facility] 4 08:37:01 Hyperkal emia [id number] Completed 201603/27/2017 Problem Code: E87.5; Problem Code Type: ICD-10; Not Available [facility] 3 05:07:10 Vitamin B deficien cy 18942442 Completed 202105/15/2023 10/03/19 23 - Improved - Akil Ayr - B12 lab values were improved at 1042 most recenty Problem Code: E53.8; Problem Code Type: ICD-10; Not Available [facility] 3 05:07:12 Impotenc e Completed Not Available [facility] 3 05:07:12 Chest pain 66284575 Completed 202104/11/2022 Problem Code: R07.89; Problem Code Type: ICD-10; Not Available [facility] 3 05:07:14 Altered bowel function 09606024 Completed 202107/11/2022 Problem Code: R19.4; Problem Code Type: ICD-10; Not Available [facility] 3 05:07:15 Impacted cerumen in right ear [id number] 07972 Completed 202107/11/2022 Problem Code: H61.21; Problem Code Type: ICD-10; Not Available [facility] 3 05:07:16 Pain of left hand [id number] 9103 Completed 201907/11/2022 Problem Code: M79.642; Problem Code Type: ICD-10; Not Available [facility] 3 05:07:18 Cough 94676886 Completed 202207/03/2023 Problem Code: R05.8; Problem Code Type: ICD-10; Not Available [facility] 4 05:35:46 Memory impairme nt 316360365 Active 2021 SLUMS score 20 06/2022. 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 Procedures Surgical History Date Name Laterality Status Provider Name and Address Organization Details Recorded Time 07/13/2024 Cerumen Removal active LEDA DOUGHERTY LPN [place] - [facility] 07/13/2024 10:14:21 Imaging Results Imaging Date Name Status LastModified by Organiz ation Details LastModified Time 01/23/2024 CT, abdomen + pelvis, w/ contrast completed [facility] [address], [place], [address] 01/23/2024 20:43:56 02/02/2021 MRI, brain + brain stem completed Information not available 05/04/2024 16:34:59 12/12/2021 MRI, neck completed Information no t available 05/04/2024 16:35:01 09/06/2022 CT, abdomen + pelvis completed Information not available 05/04/2024 16:35:05 01/30/2022 imaging/diagn ostic result completed Information not available 05/04/2024 16:35:58 07/25/2021 imaging/diagn ostic result completed Information not available 05/04/2024 16:36:19 09/16/2018 imaging/diagn ostic result completed Information not available 05/04/2024 16:36:20 09/09/2018 imaging/diagn ostic result completed Information not available 05/04/2024 16:36:21 02/02/2021 imaging/diagn ostic result completed Information not available 05/04/2024 16:36:26 02/02/2021 imaging/diagn ostic result completed Information not available 05/04/2024 16:36:28 06/09/2019 imaging/diagn ostic result completed Information not available 05/04/2024 16:36:29 Procedure Notes None recorded. Medical Equipment None Reported. Allergies Allergen ID Allergen Name Allergen Category Reaction Reaction Severity Criticality Documentation Date Start Date Code Code System Note Provider Name and Address Organization Details Recorded Time sulfadiaz ine medicatio n hives mild Not available 06/28/20232005 82830 RxNorm HIVES Not Available [facility] 3 16:11:35 Medications Name Sig Start Date Stop Date Status Note LastModified by Organization Details LastModified Time cyclobenz aprine 10 mg tablet 1 tab daily Take as needed. 09/22 completed Not Available Not Available Not Available tizanidin e 2 mg tablet take 1 tab every 8 hours PRN 10/05 completed Not Available Not Available Not Available Vicodin 5 mg-500 mg tablet 1 TAB Q6H 04/26 completed Not Available Not Available Not Available valacyclo vir 1 gram tablet 1 tab tid 09/01 completed Not Available Not Available Not Available hydrocodo ne 5 mg-acetam inophen 325 mg tablet Take 1 tablet by mouth three times a day Max of 3 per day. Fill at [facility] only. active Not Available Not Available No t Available aspirin 81 mg tablet,de layed release Take 1 tablet by mouth once a day 2023 active Not Available Not Available Not Avai lable sodium polystyre ne sulfonate 15 gram/60 mL oral suspensio n 15g po daily for 2 days 03/27 completed Not Available Not Available Not Available pantopraz ole 40 mg tablet,de layed release Take 1 tab by mouth daily. 2012 active PA approved 07/11/15 . SRD Not Available Not Available Not Available ranitidin e 150 mg tablet Take 1 by mouth daily or up to twice a day 06/19 completed Not Available Not Available Not Available lansopraz ole 30 mg capsule,d elayed release TAKE ONE CAPSULE BY MOUTH EVERY DAY active Not Available Not Available No t Available gabapenti n 300 mg capsule Take 1 capsule by mouth once a day 04/11 completed Not Available Not Available Not Available folic acid 1 mg tablet TAKE ONE TABLET BY MOUTH EVERY DAY active Not Available Not Available No t Available gabapenti n 100 mg capsule Take 1-2 capsule by mouth once a day 07/11 completed Not Available Not Available Not Available azelastin e 137 mcg (0.1 %) nasal spray [place] 2 sprays every day by intranas al route. active Not Available Not Available No t Available amoxicill in 875 mg-potass ium clavulana te 125 mg tablet TAKE ONE TABLET BY MOUTH EVERY 12 HOURS FOR 5 DAYS active Not Available Not Available No t Available Prilosec OTC 20 mg tablet,de layed release 1 CAP bid 05/10 completed Not Available Not Available Not Available Cialis 20 mg tablet Take 1 by mouth prior to intercou rse as needed 03/27 completed Not Available Not Available Not Available Vesicare 5 mg tablet Take 1 tablet every day by oral route. active Not Available Not Available No t Available dexlansop razole 60 mg capsule,b iphase delayed release 1cap daily 11/08 completed Not Available Not Available Not Available Myrbetriq 25 mg tablet,ex tended release TAKE ONE TABLET BY MOUTH EVERY DAY 11/26 completed Not Available Not Available Not Available cyanocoba roseann (vitamin B-12) 1,000 mcg capsule Take 1 capsule every day by oral route. 2023 active Not Available Not Available Not Avai lable Vitals Date Recorded Body height Body mass index (BMI) Body weight Body temperature Oxygen saturation Oxygen saturation in Arterial blood by Pulse oximetry Heart rate Respiratory rate Systolic blood pressure Diastolic blood pressure Provider Name and Address Organization Details Last Updated DateTime 4 178.64 cm 23.6 kg/m2 06107.3 3 g 97.2 [degF] 99 % 99 % 78 /min 18 /min 128 mm[Hg] 76 mm[Hg] LEDA DOUGHERTY LPN [facility] 4 07:57:39 Date Recorded Body height Body mass index (BMI) Body weight Body temperature Oxygen saturation Oxygen saturation in Arterial blood by Pulse oximetry Heart rate Respiratory rate Systolic blood pressure Diastolic blood pressure Provider Name and Address Organization Details Last Updated DateTime 4 178.64 cm 23.6 kg/m2 74171.3 3 g 97.8 [degF] 99 % 99 % 64 /min 16 /min 130 mm[Hg] 80 mm[Hg] LEDA DOUGHERTY LPN [facility] 4 08:01:18 Date Recorded Body height Body mass index (BMI) Body weight Body temperature Respiratory rate Heart rate Systolic blood pressure Diastolic blood pressure Provider Name and Address Organization Details Last Updated DateTime 178.64 cm 22.9 kg/m2 76297.0 7 g 97.7 [degF] 16 /min 64 /min 122 mm[Hg] 80 mm[Hg] LEDA DOUGHERTY LPN [facility] 10:21:57 Date Recorded Body height Body mass index (BMI) Body weight Body temperature Oxygen saturation Oxygen saturation in Arterial blood by Pulse oximetry Heart rate Respiratory rate Systolic blood pressure Diastolic blood pressure Provider Name and Address Organization Details Last Updated DateTime 178.64 cm 22.6 kg/m2 01367.1 9 g 98 [degF] 99 % 99 % 82 /min 18 /min 120 mm[Hg] 78 mm[Hg] LEDA DOUGHERTY LPN [facility] 08:53:25 Social History Question Answer Notes LastModified by Organizat ion Details LastModified Time Tobacco Smoking Status Former Smoker LEDA DOUGHERTY LPN [facility] 09/11/2023 07:35:53 Do You Have An Advance Directive? Yes Information n ot available 09/10/2023 When Did You Quit Smoking? 16+yearssincel astcielbert Information not available 09/11/2023 1) Date Of Last VPMS Check? 07/13/2024 Information not available 07/13/2024 2) VPMS Findings No Concerns Informa tion not available 02/19/2024 4) Daily MME 15 Information not available 02/19/2024 3) Date Of Last Contract: 12/26/2022 Information not available 02/19/2024 Would You Say That, In General, Your Health Is Very Good Information not available 09/11/2023 How Often Does Anyone, Including Family, Physically Hurt You? Never Information not available 09/11/2023 How Often Does Anyone, Including Family, Insult Or Talk Down To You? Never Information no t available 09/11/2023 How Often Does Anyone, Including Family, Threaten You With Harm? Never Information not available 09/11/2023 How Often Does Anyone, Including Family, Scream Or Curse At You? Never Information not available 09/11/2023 Within The Past 12 Months, You Worried That Your Food Would Run Out Before You Got Money To Buy More. Never True Information n ot available 09/11/2023 Within The Past 12 Months, The Food You Bought Just Didn't Last And You Didn't Have Money To Get More. Never True Information n ot available 09/11/2023 How Hard Is It For You To Pay For The Very Basics Like Food, Housing, Medical Care, And Heating? Would You Say It Is: Not Hard At All Information not available 09/11/2023 In The Past 12 Months, Has Lack Of Reliable Transportation Kept You From Medical Appointments, Meetings, Work Or From Getting Things Needed For Daily Living? No Information not available 09/11/2023 What Is Your Housing Situation Today? I Have Housing. Information not available 09/11/2023 How Often In The Past Year Have You Used Marijuana (including Smoking, Vaping, Dabbing, Or Edibles)? Never Information not available 09/11/2023 How Often In The Past Year Have You Used Prescription Medications That Were Not Prescribed To You? Never Information n ot available 09/11/2023 How Often In The Past Year Have You Taken Your Own Prescription Medication More Than The Way It Was Prescribed Or For Different Reasons Than Its Intended Purpose? Never Information no t available 09/11/2023 How Often In The Past Year Have You Used Other Drugs (for Example, Heroin, Cocaine, Meth, Salvia, Inhalants)? Never Information not available 09/11/2023 What Matters Most To You? Health, Family's Well-being Of All Others And The World Information not available 09/11/2023 During The Past Four Weeks Has Your Physical And Emotional Health Limited Your Social Activities With Family And Friends, Neighbors, Or Groups? Not At All Information not available 09/11/2023 During The Past Four Weeks, Was Someone Available To Help You If You Needed And Wanted Help? (For Example, If You Severn Very Nervous, Lonely, Or Blue; Got Sick And Had To Stay In Bed; Needed Someone To Talk To; Needed Help With Daily Chores; Or Needed Help Just Taking Care Of Yourself.) Yes- As Much As I Wanted Information not available 09/11/2023 During The Past Four Weeks, What Was The Hardest Physical Activity You Could Do For At Least 2 Minutes? Very Heavy Information not available 09/11/2023 Can You Get To Places Out Of Walking Distance Without Help? (For Example, Can You Travel Alone On Buses Or Taxis, Or Drive Your Own Car?) Yes Information not available 09/11/2023 Can You Go Shopping For Groceries Or Clothes Without Someone? s Help? Yes Information not available 09/11/2023 Can You Prepare Your Own Meals? Yes Information not available 09/11/2023 Can You Do Your Housework Without Help? Yes Information not available 09/11/2023 Because Of Any Health Problems, Do You Need The Help Of Another Person With Your Personal Care Needs Such As Eating, Bathing, Dressing, Or Getting Around The House? No Information not available 09/11/2023 Can You Handle Your Own Money Without Help? Yes Information not available 09/11/2023 Are You Having Difficulties Driving Your Car? No Information no t available 09/11/2023 Do You Always Fasten Your Seat Belt When You Are In A Car? Yes- Usually Information not available 09/11/2023 How Often During The Past Four Weeks Have You Been Bothered By Any Of The Following Problems? Falling Or Dizzy When Standing Up? Seldom Information not available 09/11/2023 Sexual Problems? Never Informat ion not available 09/11/2023 Trouble Eating Well? Never Information not available 09/11/2023 Teeth Or Denture Problems? Never Information not available 09/11/2023 Problems Using The Telephone? Never Information not available 09/11/2023 Tiredness Or Fatigue? Sometimes Information not available 09/11/2023 Have You Had 2 Or More Falls Or Sustained An Injury With A Fall In The Last Year? No Information no t available 09/11/2023 Do You Have Difficulty With Walking Or Balance? No Information not available 09/11/2023 Do You Currently Use A Hearing Device? No Information not available 09/11/2023 Do You Currently Have Any Trouble With Your Vision? No Information no t available 09/11/2023 Do You Exercise For About 20 Minutes Three Or More Days A Week? Yes- Most Of The Time Information not available 09/11/2023 Are There Any Safety Concerns In Your Home (see Attached CDC Pamphlet)? No Information not available 09/11/2023 How Often Do You Have Trouble Taking Medicines The Way You Have Been Told To Take Them? I Always Take Them As Prescribed Information not available 09/11/2023 How Confident Are You That You Can Control And Manage Most Of Your Health Problems? Very Confident Information not available 09/11/2023 Date Of Most Recent SBINS 09/11/2023 Information not available 09/11/2023 What Was The Date Of Your Most Recent Tobacco Screening? 07/13/2024 Information not available 07/13/2024 What Is Your Current Pack Years? 10packyears Information not available 09/11/2023 At What Age Did You Start Smoking Tobacco? 20 Information not available 09/11/2023 Has Tobacco Cessation Counseling Been Provided? No Information not available 09/11/2023 Do You Or Have You Ever Used Any Other Forms Of Tobacco Or Nicotine? No Information not available 09/11/2023 Sex: Male Functional Status None recorded. Mental Status None recorded. Family History Relationship Description Onset Age of this Age Resolved Age Notes LastModified by Organization Details LastModified Time Mother Family history of Depression [email or web address] Not available 06/28 03:54:51 Notes:*Problem: Mother: dece ased age 76 cause natural, had depression Father: age 38 cause complications of surgery after PUD Sisters: none Brothers: one with CAD s/p stenting in mid 50s, second brother with ETOH abuse l. Both with DM2. Children: 2 daughters. Family History of: Coronary heart disease: yes Alcoholism: yes Mental illness: yes Medical History No medical history recorded. Immunizations Vaccine Type Date Status Provider Name and Address Organization Details Recorded Time Pneumococcal conjugate PCV20, polysaccharide BWL106 conjugate, adjuvant, PF 09/11/2023 completed ANALIA DERAS MD [address], [place], [address], [facility] 09/11/2023 09:44:01 Tdap 08/25/2012 completed Not Available [facility] 05:39:22 Tdap 07/11/2022 completed Not Available [facility] 05:39:22 zoster live 08/29/2009 completed Not Available [facility] 06/28/2023 05:39:23 Pneumococcal conjugate PCV 13 12/21/2014 completed Not Available [facility] 06/28/2023 05:39:23 Influenza, high-dose, trivalent, PF 07/08/2018 completed Not Available [facility] 06/28/2023 05:39:23 Td(adult) unspecified formulation 08/19/1996 completed Not Available [facility] 06/28/2023 05:39:23 Td(adult) unspecified formulation 10/27/2007 completed Not Available [facility] 06/28/2023 05:39:23 Influenza, split virus, trivalent, preservative 10/10/2016 completed Not Available [facility] 06/28/2023 05:39:24 Influenza, split virus, trivalent, preservative 07/06/2015 completed Not Available [facility] 06/28/2023 05:39:24 Influenza, split virus, quadrivalent, PF 05/29/2019 completed Not Available [facility] 06/28/2023 05:39:24 Influenza, split virus, quadrivalent, preservative 06/19/2017 completed Not Available [facility] 06/28/2023 05:39:24 Influenza, high-dose, quadrivalent, PF 06/13/2020 completed Not Available [facility] 06/28/2023 05:39:24 Influenza, high-dose, quadrivalent, PF 07/07/2021 completed Not Available [facility] 06/28/2023 05:39:24 Influenza, high-dose, quadrivalent, PF 07/11/2022 completed Not Available [facility] 06/28/2023 05:39:25 COVID-19, mRNA, LNP-S, PF, 100 mcg/0.5mL dose or 50 mcg/0.25mL dose 09/23/2020 completed Not Available [facility] 06/28/2023 05:39:25 COVID-19, mRNA, LNP-S, PF, 100 mcg/0.5mL dose or 50 mcg/0.25mL dose 07/07/2021 completed Not Available [facility] 06/28/2023 05:39:25 SARS-COV-2 (COVID-19) vaccine, UNSPECIFIED 10/21/2020 completed Not Available [facility] 06/28/2023 05:39:25 SARS-COV-2 (COVID-19) vaccine, UNSPECIFIED 06/15/2022 completed Not Available [facility] 06/28/2023 05:39:25 pneumococcal polysaccharide PPV23 05/07/2008 completed Not Available [facility] 2022 05:39:25 influenza, unspecified formulation 08/09/2014 completed Not Available [facility] 06/28/2023 05:39:25 COVID-19, mRNA, LNP-S, PF, mary-sucrose, 30 mcg/0.3 mL 07/13/2024 completed Cara wadsworth, [facility] 07/13/2024 10:11:57 Influenza, high-dose, quadrivalent, PF 06/19/2023 completed Not Available [facility] 08/30/2023 05:31:47 COVID-19, mRNA, LNP-S, PF, mary-sucrose, 30 mcg/0.3 mL 06/19/2023 completed Not Available [facility] 08/30/2023 05:31:47 zoster recombinant 06/24/2020 completed LEDA CORDERO LPN null, [facility] 11/27/2023 07:31:07 zoster recombinant 11/18/2020 completed LEDA CORDERO LPN null, [facility] 11/27/2023 07:31:32 Influenza, high-dose, trivalent, PF 06/06/2024 completed LEDA DOUGHERTY LPN null, [facility] 07/13/2024 09:10:34 Past Encounters Encounter ID Performer Location Encounter Start Date Encounter Closed Date Diagnosis/Indication Diagnosis SNOMED-CT Code Diagnosis ICD10 Code [id number] ANALIA DERAS MD [facility] [address] [place] [address] 09/11/2023 07:44:25 09/11/2023 08:44:03 Chronic neck pain 8972307927 107 M54.2 Gastroesop hageal reflux disease without esophagitis 291843778 K21.9 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 Adult heal th examination 395932167 Z00.00 Nocturia 015468647 R35.1 History of transient ischemic attack 851971827 Z86.73 Active or passive immunization 292977319 Z23 [id number] ANALIA DERAS MD [facility] [address] [place] [address] 11/27/2023 07:53:14 11/27/2023 08:15:04 Chronic low back pain 255924302 M54.50 Overactive urinary bladder 428425272 N32.81 [id number] ANALIA DERAS MD [facility] [address] [place] [address] 02/19/2024 10:10:24 02/19/2024 11:09:30 Chronic low back pain 299998002 M54.50 Hemorrhagic colitis 8131 8004 K52.9 [id number] [facility] [address] [place] [address] 07/13/2024 08:46:40 07/13/2024 10:00:32 Chronic low back pain 341840824 M54.50 Active or passive immunization 579350725 Z23 Overactive urinary bladder 190482169 N32.81 Paresthesia 15498668 R20 .2 Allergic rhinitis 765501 04 J30.9 Health Concerns Section Related Observation LastModified by Organization Detai ls LastModified Time None Recorded Concern Status LastModified by Organization Details LastModified Time None Recorded Advance Directives Directive Y: Payers Encounter Date Sequence Insurance Name Policy Number Policy Blunt Covered Member ID Blunt Member ID Guarantor Name 09/11/2023 2 [place] [employer] Callum Reyes [id number] Callum Reyes 09/11/2023 1 [facility]WHERE - MEDICARE ADVANTAGE (MEDICARE REPLACEMENT PPO) [id number] Callum Reyes [id number] Callum Reyes 11/27/2023 1 [facility] [place] (MEDICARE REPLACEMENT HMO) [id number] Callum Meansley [id number] Callum Reyes 02/19/2024 1 [facility] [place] (MEDICARE REPLACEMENT HMO) [id number] Callum Barnett Reyes [id number] Callum Reyes Notes Date Note Type Note Provider Name and Address Organization Details Recorded Time 09/11/2023 text/html c/o urinating 2- 3 times a night, wonders if this is the aging process or anything else. Denies pain or burning w/ urination.Review of chronic problems-chronic neck and back pain Pain medication continues to help with chronic pain, UTD with CSA, MME low at 15 mg. Does shoveling and cares for his property.B12/folate deficiency- levels normal 02/2023 with replacement (folate was low at 6.5)Memory impairment.BPPV- only notices it if he bends over and gets up quick, has never fallen.tremorGERD- controlled with lansoprazolehx of prostate cancer- PSA <0.1 06/2023hx of TIA- saw Dr. Pond in 2020, no sure if TIA or not, but did suggest ongoing ASA 81 mg daily. He has not been taking lately.LUQ pain, occurs infrequently, recently after shoveling. ANALIA DERAS MD [address], [place], [address], [facility]. 09/11/2023 09:46:43 11/27/2023 text/html Here for follow up of multiple problems as noted below: Chronic pain: He continues to have relief from pain medication. VPMS checked and is appropriate. Did get worse when he tried to shovel snow. nocturia3 months ago started on New medication- - Myrbetriq 25 mg tablet,extended release 1 tablet every day He stopped Myrbetriq 25 mg as it was not providing any positive results. He gets up 2-3 times a night. He feels like everyone is age has this. I can deal with ithistory of Episode in 2020, Dr. Pond did not think it was likely to be vascular, but did suggest he take daily ASA.restarted at last visit- aspirin 81 mg tablet,delayed release Take 1 tablet by mouth once a day. Not having any GERD. ROS- some pain in his shoulder, PT a few times. MD Sanjay [address], [place], [address], [facility]. 11/27/2023 08:18:27 02/19/2024 text/html He was admitted to [facility] 01/22 for rectal bleeding and weakness, he was discharge 01/24. Acute GI bleed. He is feeling better. He is tired, though that feels that it is getting better. He has had no further abdominal pain, diarrhea, or blood in his stool. No fevers or chills. Feels just about back to baseline. VPMS appropriate. Chronic pain medications continue to help. Does not feel that it is time for injections at this time, pain is manageable. MD Sanjay [address], [place], [address], [facility]. 02/19/2024 17:26:49
--- OUTSIDE RECORDS SUMMARY | 2024-07-13 12:09 | XMS_ITS | Continuity of Care Document ---
Author Organization [facility] Address [address] [place] [address] [facility] NBR [id number] Date(s): 06/21/22 - 06/21/22 [facility] [address], [place] [address] Encounter Diagnosis Gastroesophageal reflux disease(Discharge Diagnosis) - 06/21/22 Constipation(Discharge Diagnosis) - 06/21/22 Discharge Disposition: Home or Self Care Attending Physician: Mag Donaldson APRN Allergies, Adverse Reactions, Alerts Substance Reaction Severity Status sulfa drugs Unknown Active Functional Status 06/21/22 Other exposure to Infectious Disease Non e Medications gabapentin 300 mg oral capsule 300 mg = 1 cap, Oral, every day at bedtime, # 30 cap, 0 Refill(s) Start Date: 06/05/22 Status: Ordered HYDROcodone-acetaminophen 5 mg-300 mg oral tablet 1 tab, Oral, every 6 hr, PRN as needed for pain, 0 Refill(s) Start Date: 06/05/22 Status: Ordered lansoprazole 30 mg oral delayed release capsule 30 mg = 1 cap, Oral, Daily, # 90 cap, 0 Refill(s) Start Date: 06/05/22 Status: Ordered Vitamin B12 1,000 mcg =, Oral, Daily, 0 Refill(s) Start Date: 06/05/22 Status: Ordered Problem List Condition Confirmation Course Effective Dates Status H ealt Status Informant Actinic keratosis Confirmed Active Cervical spondylosis Confirmed Active Constipation Confirmed Active Chronic pain Confirmed Active Gastroesophageal reflux disease Confirmed Active Headache Confirmed Active History of alcohol abuse Confirmed Active Prostate cancer Confirmed Active Procedures Procedure Date Related Diagnosis Body Site Status EGD AND COLONOSCOPY WITH BIOPSY 1 06/07/22 Completed Colonoscopy, flexible; diagn ostic, including collection of specimen(s) by brushing or washing, when performed (separate procedure) 06/06/22 Completed Esophagogastroduodenoscopy, flexible, transoral; diagnostic, including collection of specimen(s) by brushing or washing, when performed (separate procedure) 06/06/22 Completed Appendectomy Completed Colonoscopy Completed Prostatectomy Completed 1auto-populated from documented surgical case Vital Signs Most recent to oldest [Reference Range]: 1 Temperature Temporal Artery [36-38 Deg C ] 36.4 Deg C (06/21/22 8:32 AM) Peripheral Pulse Rate [60-100 bpm] 86 bp m (06/21/22 8:32 AM) Respiratory Rate [12-24 br/min] 20 br/mi n (06/21/22 8:32 AM) Blood Pressure [90-140/60-90 mmHg] 110/7 0mmHg (06/21/22 8:32 AM) Weight 73.4 kg (06/21/22 8:32 AM) Weight Measured (lbs) 161.819 lb (06/21/22 8:32 AM) [place] Body Weight Calculated 73 kg (06/21/22 8:32 AM) Height 177.80 cm (06/21/22 8:32 AM) Height/Length Measured (inches) 70 inch (06/21/22 8:32 AM) BSA Measured 1.9 m2 (06/21/22 8:32 AM) Body Mass Index 23.22 kg/m2 (06/21/22 8:32 AM) Social History Social History Type Response Tobacco Former tobacco user Tobacco Use:. Sex
--- OUTSIDE RECORDS SUMMARY | 2024-07-13 12:09 | XMS_ITS | Encounter Summary ---
Author Organization [facility] Address [facility] [place] [address] Care Team Providers Care Sap Bods Developer Name Role Phone Analia Deras MD Primary Care Provider [phone] Reason for Visit * Reason Onset Date Comments Results 12/04/2010 Encounter Details Date Type Department Care Team (Late st Contact Info) Description 12/04/2010 Telephone [place] [id number] Everett Ramos MD [facility] [place] [address] Results Social History Tobacco Use Types Packs/Day Years Used Date Smoking Tobacco: Never Assessed Sex and Gender Information Value Date Recorded Sex Assigned at Not on file Gender Identity Not on file Sexual Orientation Not on file documented as of this encounter Miscellaneous Notes * Telephone Encounter - Ashwini Ramirez RN - 12/05/2010 2:44 PM EDT Call back and spoke with who will communicate results to pt * Telephone Encounter - Everett Ramos MD - 12/04/2010 9:55 AM EDT I sent letter via edh (see note 4/8). He should get it soon (bx showed mild inflammation, no Pradhan's)-can you let him know? * Telephone Encounter - Ashwini Ramirez, RN - 12/04/2010 9:38 AM EDT Pt's left message requesting letter with the results of EGD from October 31. documented in this encounter Plan of Treatment Not on file documented as of this encounter Visit Diagnoses Not on filedocumented in this encounter Care Teams Sap Bods Developer Relationship Specialty Start Date End Date Analia Deras MD [address] [place] [address] PCP - General 07/11/10 documented as of this encounter
--- OUTSIDE RECORDS SUMMARY | 2024-07-13 12:09 | XMS_ITS | Encounter Summary ---
Author Organization [facility] Address [address] [place] [address] Care Team Providers Care Dairy Products Maker Name Role Phone Analia Deras MD Primary Care Provider [phone] Encounter Details Date Type Department Care Team (Late st Contact Info) Description 07/11/2022 Lab Requisition [facility] Pathology & Laboratory Medicine - [address] [id number] Outr Resulting Lab, Provider Social History Tobacco Use Types Packs/Day Years Used Date Smoking Tobacco: Never Assessed Sex and Gender Information Value Date Recorded Sex Assigned at Not on file Legal Sex Male 17:40 EST Gender Identity Not on file Sexual Orientation Not on file documented as of this encounter Plan of Treatment Not on file documented as of this encounter Procedures Procedure Name Priority Date/Time Associated Diagnosis Comments SYPHILIS SEROLOGY Routine 07/11/2022 8:5 6 EST PSA TOTAL, DIAGNOSTIC Routine 07/11/2022 8:56 EST documented in this encounter Results * SYPHILIS SEROLOGY (07/11/2022 8:56 EST) Syphilis Serology Negative Negative 07/13/2022 11:26 EST [facility] Blood VENOUS BLOOD / Unknown 07/11/2022 8:56 EST 07/11/2022 21:24 EST us Provider Outr Resulting Lab IMMUNOLOGY AND SEROL OGY ORDERABLES Final Result Performing Organization Address City/State/[facility] Co de Phone Number [facility] [address] [place] [address] * PSA TOTAL, DIAGNOSTIC (07/11/2022 8:56 EST) PSA <0.1 <=6.5 ng/mL 07/12/2022 9:38 EST [facility] Blood VENOUS BLOOD / Unknown 07/11/2022 8:56 EST 07/11/2022 21:24 EST Narrative [facility] - 07/12/2022 9:38 EST NOTE: Serum PSA concentration should not be interpreted as absolute evidence for the presence or absence of malignant disease. Assayed on [employer] XPT using chemiluminescent technology.??Values obtained by using different assay methods cannot be used interchangeably. us Provider Outr Resulting Lab CHEMISTRY & BLOOD GA S ORDERABLES Final Result Performing Organization Address [facility] Co de Phone Number [facility] [address] [place] [address] documented in this encounter Visit Diagnoses Not on filedocumented in this encounter Care Teams Dairy Products Maker Relationship Specialty Start Date End Date Analia Deras MD [address] [place] [phone] PCP - General 06/24/15 documented as of this encounter
--- OUTSIDE RECORDS SUMMARY | 2024-07-13 12:09 | XMS_ITS | Encounter Summary ---
Author Organization [facility] Address [facility] [place] [address] Care Team Providers Care Eap Specialist Name Role Phone Analia Deras MD Primary Care Provider Encounter Details Date Type Department Care Team (Latest Contact Info) Description 10/31/2010 6:41 AM EDT - 10/31/2010 9:50 AM EDT Hospital [place] [phone] Everett Ramos MD [facility] [place] [address] Discharge Disposition: Home Social History Tobacco Use Types Packs/Day Years Used Date Smoking Tobacco: Never Assessed Sex and Gender Information Value Date Recorded Sex Assigned at Not on file Gender Identity Not on file Sexual Orientation Not on file documented as of this encounter Medications at Time of Discharge Medication Sig Dispensed Refills Start Date End Date gabapentin (NEURONTIN) 300 mg capsule 200mg, PO, QHS 10/31/2010 pantoprazole (PROTONIX) 40 mg tablet 10/31/2010 hydroCODone-acetaminophen (LORCET-HD) 5-500 mg per capsule 11/01/19 11 documented as of this encounter Plan of Treatment Not on file documented as of this encounter Procedures Procedure Name Priority Date/Time Associated Diagnosis Comments SURGICAL PATHOLOGY REPORT Routine 10/31/2010 10:25 AM EDT documented in this encounter Results * PATHOLOGY SURGICAL PATHOLOGY FINAL REPORT (10/31/2010 10:25 AM EDT) Surgical Pathology Report ? [facility] ? Provider: ?? EVERETT RAMOS ?Pt. Name: ?? CALLUM ATWOOD ? Acc #: ?[id number] ?Pt. ? Col Date: ?? 10/31/2010 ? /Sex: ?1940,(70 years),Male ? Rec Date: ?? 10/31/2010 ? LOC: ?4T ? SURGICAL PATHOLOGY ? ---Pathologic Diagnosis--- ? Endoscopic biopsies - ? A. 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 Negative for specialized metaplasia (Alcian blue stain). ? B. Gastric fundic gland polyps. ? CR-0 ? 11/01/10 ? AAS ? 11/01/10 Verified by: ? Bernard Kapoor MD ? Pathologist ? (Electronic Signature) ? The attending pathologist whose signature appears on this report has ? reviewed all diagnostic slides and has edited the gross and/or ? microscopic portion of the report in rendering the final pathologic ? diagnosis. ? ---Microscopic Description--- ? Slides reviewed, microscopic description not recorded. ? ---Gross Description--- ? A - Labeled/Fixativ e: BX GE junction, formalin. ? Qty/Size/Weight : ?Two, ranging from 0.1 cm to 0.2 cm in ? greatest dimension. ? Tissue Description: ?? Soft, hureta tissues. ? Sections/Proces sing: ??(T1) ? B - Labeled/Fixativ e: BX polyps, stomach; formalin. ? Qty/Size/Weight : ?Two, averaging 0.3 x 0.3 x 0.2 cm. ? Tissue Description: ?? Soft, huerta tissues. ? Sections/Proces sing: ??(T1) ??aje/EJR ? ---Clinical Information--- ? Specimen Submitted: ? A - Bx, GE jct ? B - Bx polyps, stomach ? Clinical History: ? Irregular X line - R/O short segment Pradhan's gastric polyps ? [facility] ? Provider: ?? EVERETT RAMOS ?Pt. Name: ?? CALLUM ATWOOD ? Acc #: ?[id number] ?Pt. ? Col Date: ?? 10/31/2010 ? /Sex: ?1940,(70 years),Male ? Rec Date: ?? 10/31/2010 ? LOC: ?4T ? SURGICAL PATHOLOGY ? Clinical Diagnosis: ? Dyspepsia/upper abd pain CERNER MILLENNIUM 10/31/2010 10:2 5 AM EDT Everett Ramos MD PATHOLOGY/CYTOLOGY O RDERABLES CERNER MILLENNIUM documented in this encounter Visit Diagnoses Not on filedocumented in this encounter Care Teams Eap Specialist Relationship Specialty Start Date End Date Analia Deras MD [address] [place] [address] PCP - General 07/11/10 documented as of this encounter
--- OUTSIDE RECORDS SUMMARY | 2024-07-13 12:09 | XMS_ITS | Referral Summary ---
Author Organization [facility] Address [address] [place] [address] Care Team Providers Care Children'S Book Author Name Role Phone Analia Deras MD Primary Care Provider [phone] Social History Tobacco Use Types Packs/Day Years Used Date Smoking Tobacco: Never Assessed Sex and Gender Information Value Date Recorded Sex Assigned at Not on file Legal Sex Male 17:40 EST Gender Identity Not on file Sexual Orientation Not on file Plan of Treatment Not on file [place] Care Teams Children'S Book Author Relationship Specialty Start Date End Date Analia Deras MD [address] [place] [phone] PCP - General 06/24/15
--- OUTSIDE RECORDS SUMMARY | 2024-07-13 12:09 | XMS_ITS | Clinical Summary ---
Author Organization [facility] Address [address] [place] [address] Care Team Providers Care Lye Treater Name Role Phone Analia Deras MD Primary Care Provider [phone] Social History Tobacco Use Types Packs/Day Years Used Date Smoking Tobacco: Never Assessed Sex and Gender Information Value Date Recorded Sex Assigned at Not on file Legal Sex Male 17:40 EST Gender Identity Not on file Sexual Orientation Not on file Plan of Treatment Health Maintenance Due Date Last Done Comments Fall Risk Screening 10/27/2007 RSV Immunization ( o r 60+ Years) (1 - 1-dose 75+ series) 2017 COVID-19 Vaccine ( season) 2024 [place] Care Teams Lye Treater Relationship Specialty Start Date End Date Analia Deras MD [address] [id number] PCP - General 06/24/15
--- OUTSIDE RECORDS SUMMARY | 2024-07-13 12:09 | XMS_ITS | Continuity of Care Document ---
Author Organization [facility] Address [address] [place] [id number] Care Team Providers Care Router Operator Radial Name Role Phone SOFÍA ADKINS Primary Care Physician [phone] Encounter [facility] FIN NBR [id number] Date(s): 08/29/22 - 08/29/[address] [address] [place] Discharge Disposition: Home or Self Care Attending Physician: Mag Donaldson APRN Admitting Physician: Mag Donaldson APRN Referring Physician: Mag Donaldson APRN Allergies, Adverse Reactions, Alerts Substance Reaction Severity Status sulfa drugs Unknown Active Assessment and Plan Future Scheduled Tests Radiology* CT Abdomen and Pelvis w/ Contrast 08/21/22 Medications gabapentin 300 mg oral capsule 300 [...] Prostatectomy Completed 1auto-populated from documented surgical case Results Laboratory List Name Date Basic Metabolic Panel (BMP) 08/29/22 Most recent to oldest [Reference Range]: 1 BUN [8-26 mg/dL] 26 mg/dL (08/29/22 8:04 AM) Glucose Level [74-106 mg/dL] 69 mg/dL *LOW* (08/29/22 8:04 AM) Potassium Level [3.5-5.1 mmol/L] 4.6 mmo l/L (08/29/22 8:04 AM) Osmolality [275-295 mOsm/kg] 277 mOsm/kg (08/29/22 8:04 AM) Sodium Level [134-143 mmol/L] 137 mmol/L (08/29/22 8:04 AM) Calcium Level [8.9-10.3 mg/dL] 9.4 mg/dL (08/29/22 8:04 AM) CO2 [22-32 mmol/L] 26 mmol/L (08/29/22 8:04 AM) eGFR Non-AA 76 *NA* (08/29/22 8:04 AM) eGFR AA 76 *NA* (08/29/22 8:04 AM) Chloride Level [98-111 mmol/L] 103 mmol/ L (08/29/22 8:04 AM) BUN/Creat Ratio [8.0-20.0] 25.7 *HI* (08/29/22 8:04 AM) Creatinine Level [0.61-1.24 mg/dL] 1.01 mg/dL (08/29/22 8:04 AM) Anion Gap [3.0-12.0] 8.0 (08/29/22 8:04 AM) Social History Social History Type Response Tobacco Former tobacco user Tobacco Use:. Sex Patient Care team information Personnel Name: SOFÍA ADKINS Stefania Address: Address: [address] [place] [address]
--- OUTSIDE RECORDS SUMMARY | 2024-07-13 12:09 | XMS_ITS | Clinical Summary ---
Author Organization [facility] Address [facility] [place] [address] Care Team Providers Care Nude Model Name Role Phone Analia Deras MD Primary Care Provider [phone] Allergies Active Allergy Reactions Criticality Noted Date Comments Sulfa (Sulfonamide Antibiotics) Medium CIS - Hives, CIS - Hives, CIS - Hives Medications Medication Sig Dispensed Refills Start Date End Date Status gabapentin (NEURONTIN) 300 mg capsule 200mg, PO, QHS 10/31/2010 Active pantoprazole (PROTONIX) 40 mg tablet 10/31/2010 Active hydroCODone-acetaminophen (LORCET-HD) 5-500 mg per capsule 10/31/2010 Active Social History Tobacco Use Types Packs/Day Years Used Date Smoking Tobacco: Never Assessed Sex and Gender Information Value Date Recorded Sex Assigned at Not on file Gender Identity Not on file Sexual Orientation Not on file Plan of Treatment Health Maintenance Due Date Last Done Comments Tetanus/Diphtheria/Pertussis Vaccines (1 - Tdap) 10/26 Zoster vaccine (1 of 2) 1992 Advance Directive 1997 Pneumoccocal Vaccine: 65+ (1 of 1 - PCV) 10/27/2007 RSV Vaccine (1 - 1-dose 75+ series) 2017 Covid-19 Vaccine (1 - 2023- season) 2024 Influenza (Flu) vaccine (1 o f 1 - Influenza standard series) 04/19/2024 Care Teams Nude Model Relationship Specialty Start Date End Date Analia Deras MD [address] [place] [address] [facility] - General 07/11/10
--- OUTSIDE RECORDS SUMMARY | 2024-07-13 12:09 | XMS_ITS | Continuity of Care Document ---
Author Organization [facility] Address [address] [place] [id number] Care Team Providers Care Aquatics Lifeguard Name Role Phone SOFÍA ADKINS Primary Care Physician [phone] Encounter [facility] FIN NBR [id number] Date(s): 09/06/22 - 09/06/[address] [address] Encounter Diagnosis Other ascites(Final) - Discharge Disposition: Home or Self Care Attending Physician: Mag Donaldson APRN Admitting Physician: Mag Donaldson APRN Allergies, Adverse Reactions, Alerts Substance Reaction Severity Status sulfa drugs Unknown Active Medications gabapentin 300 mg oral capsule 300 [...] Completed 1auto-populated from documented surgical case Results Radiology Reports * Exam Date Time Procedure Performing Provider Status 09/06/22 8:[address] Abdomen and Pelvis w/ Contrast Crap o, Bianca J; Auth (Verified) Notes: (CT Abdomen and Pelvis w/ Contrast) Reason For Exam: comparison ascites CT Abdomen and Pelvis w/ Contrast EXAM DESCRIPTION: CT Abdomen and Pelvis w/ Contrast 09/06/2022 INDICATION: COMPARISON ASCITES TECHNIQUE: All CT scans at this facility use at least one of these dose optimization techniques: Automated exposure control; mA and/or kV adjustment per patient size (includes targeted exams where dose is matched to clinical indication); or iterative reconstruction. Technique: Axial CT images of the abdomen/pelvis with IV contrast administration 100 cc of Isovue-300 contrast was utilized COMPARISON: None FINDINGS: Elevation of the left hemidiaphragm of uncertain chronicity Small ovoid low-attenuation lesion in the posteromedial aspect of the right hepatic lobe measuring approximately 10 mm in diameter, difficult to characterize based on size. No additional focal hepatic lesion. Normal enhancement of the main hepatic veins and main portal vein. Normal spleen size without focal mass. No calcified gallstones in the gallbladder. Adrenal glands and pancreas appear within normal limits No focal renal mass, hydronephrosis or perinephric fluid collection on either side Normal caliber abdominal aorta with atherosclerotic calcifications. No retroperitoneal adenopathy in the abdomen or pelvis. No bowel dilatation to suggest obstruction or ileus. No free intraperitoneal air. No mesenteric inflammatory stranding. Small amount of free fluid in the pelvis. No significant ascites. Appendix not identified. Small ovoid area of intermediate attenuation in the left inguinal region which may reflect small fluid containing hernia or possible post surgical changes. Mild subsegmental atelectasis or scarring in both lung bases. No suspicious regional osseous lesions. Spondylotic changes throughout the visualized spinal axis. IMPRESSION: Nonobstructive bowel pattern. No free air or inflammatory changes Small amount of free fluid in the pelvis. No significant ascites Small ovoid low-attenuation lesion in the posteromedial aspect of the right hepatic lobe measuring approximately 10 mm in diameter, difficult to characterize based on size. No additional focal hepatic lesion. Remainder of nonacute findings as detailed above. JOB #: [id number] Final Signed by: [place] Gurrola MD Signed (Electronic Signature): 09/06/2022 9:01 am Social History Social History Type Response Tobacco Former tobacco user Tobacco Use:. Sex CT Abdomen and Pelvis W contrast IV * [place] Gurrola MD: VERIFY, VERIFY Event Display: Report EXAM DESCRIPTION: CT Abdomen and Pelvis w/ Contrast 09/06/2022 INDICATION: COMPARISON ASCITES TECHNIQUE: All CT scans at this facility use at least one of these dose optimization techniques: Automated exposure control; mA and/or kV adjustment per patient size (includes targeted exams where dose is matched to clinical indication); or iterative reconstruction. Technique: Axial CT images of the abdomen/pelvis with IV contrast administration 100 cc of Isovue-300 contrast was utilized COMPARISON: None FINDINGS: Elevation of the left hemidiaphragm of uncertain chronicity Small ovoid low-attenuation lesion in the posteromedial aspect of the right hepatic lobe measuring approximately 10 mm in diameter, difficult to characterize based on size. No additional focal hepatic lesion. Normal enhancement of the main hepatic veins and main portal vein. Normal spleen size without focal mass. No calcified gallstones in the gallbladder. Adrenal glands and pancreas appear within normal limits No focal renal mass, hydronephrosis or perinephric fluid collection on either side Normal caliber abdominal aorta with atherosclerotic calcifications. No retroperitoneal adenopathy in the abdomen or pelvis. No bowel dilatation to suggest obstruction or ileus. No free intraperitoneal air. No mesenteric inflammatory stranding. Small amount of free fluid in the pelvis. No significant ascites. Appendix not identified. Small ovoid area of intermediate attenuation in the left inguinal region which may reflect small fluid containing hernia or possible post surgical changes. Mild subsegmental atelectasis or scarring in both lung bases. No suspicious regional osseous lesions. Spondylotic changes throughout the visualized spinal axis. IMPRESSION: Nonobstructive bowel pattern. No free air or inflammatory changes Small amount of free fluid in the pelvis. No significant ascites Small ovoid low-attenuation lesion in the posteromedial aspect of the right hepatic lobe measuring approximately 10 mm in diameter, difficult to characterize based on size. No additional focal hepatic lesion. Remainder of nonacute findings as detailed above. JOB #: [id number] Final Signed by: [place] Gurrola MD Signed (Electronic Signature): 09/06/2022 9:01 am Patient Care team information Personnel Name: SOFÍA ADKINS Stefania Address: Address: [address] [place] [phone] [id number]
--- OUTSIDE RECORDS SUMMARY | 2024-07-13 12:09 | XMS_ITS | Encounter Summary ---
Author Organization [facility] Address [address] [place] [address] Care Team Providers Care Group Insurance Specialist Name Role Phone Analia Deras MD Primary Care Provider [phone] Encounter Details Date Type Department Care Team (Late st Contact Info) Description 08/02/2020 Lab Requisition [facility] Pathology & Laboratory Medicine - [address] [id number] Outr Resulting Lab, Provider Social History Tobacco [...] Procedure Name Priority Date/Time Associated Diagnosis Comments PSA TOTAL, DIAGNOSTIC Routine 08/01/2020 10:25 EST documented in this encounter Results * PSA TOTAL, DIAGNOSTIC (08/01/2020 10:25 EST) PSA <0.1 0.0 - 6.5 ng/mL 08/02/2020 17:39 EST [facility] Blood VENOUS BLOOD / Unknown 08/01/2020 10:25 EST 08/02/2020 16:14 EST Narrative [facility] - 08/02/2020 17:39 EST NOTE: Serum PSA concentration should not be interpreted as absolute evidence for the presence or absence of malignant disease. Assayed on Siemens ADVIA Shape Collageaur XPT using chemiluminescent technology.??Values obtained by using different assay methods cannot be used interchangeably. us Provider Outr Resulting Lab CHEMISTRY & BLOOD GA S ORDERABLES Final Result [facility] [address] [place] [address] documented in this encounter Visit Diagnoses Not on filedocumented in this encounter Care Teams Group Insurance Specialist Relationship Specialty Start Date End Date Analia Deras MD [address] [place] [phone] PCP - General 06/24/15 documented as of this encounter
--- OUTSIDE RECORDS SUMMARY | 2024-07-13 12:09 | XMS_ITS | Encounter Summary ---
Author Organization [facility] Address [address] [place] [address] Care Team Providers Care Cake Inspector Name Role Phone Unknown, Provider Primary Care Provider Unava ilable Encounter Details Date Type Department Care Team (Late st Contact Info) Description 10/23/2000 Results Only [facility] - Maple conversion [address] [place] [address] Amairani Bernal MD [address] [place] [phone] Social History Tobacco Use Types Packs/Day Years [...] Priority Date/Time Associated Diagnosis Comments SURGICAL PATHOLOGY Routine 10/23/2000 0:00 EST documented in this encounter Results * SURGICAL PATHOLOGY (10/23/2000 0:00 EST) Pathology Report: SURGICAL PATHOLOGY REPORT Reports generated via electronic interface contain original data; however they are lacking the format of the original report. Caution should be taken when reading/interpreting unformatted reports. Name: ? CALLUM ATWOOD ? Accession #: ? [id number] ? : ? 1940 (Age: 59) ??M ? Collect Date: ? 10/23/2000 ? Location: ? [facility] ? Receive Date: ? 10/23/2000 ? Provider: AMAIRANI BERNAL MD Copy to: SOFÍA HEWITT MD ? Final Pathologic Diagnosis: A. ?Prostate, left base, needle core biopsy: 1. ?Benign prostatic glands and stroma. B. ?Prostate, left mid, needle core biopsy: 1. ?Benign prostatic glands and stroma with focal mild prostatitis. C. ?Prostate, left apex, needle core biopsy: 1. 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 ??See comment. ? - Tumor involves less than 5% of the core biopsy. - Tumor is seen at one tip of the core biopsy. D. ?Prostate, right base, needle core biopsy: 1. ?Benign prostatic glands and stroma. E. ?Prostate, right mid, needle core biopsy: 1. ?Benign prostatic glands and stroma with focal mild prostatitis. F. ?Prostate, right apex, needle core biopsy: 1. ?Benign prostatic glands and stroma. ?? Comment: ? Dr. Ce Jhaveri has reviewed this entire case and agrees with the interpretation. In ??addition, slide C was reviewed at intradepartmental consulatation conference on 10/28/00. (Dr. Staples)/[facility] Document reviewed and electronically signed by: Ashwini Staples MD Report ??Date: 10/28/2000 16:48 By the signature above, the attending physician certifies that he/she has personally conducted a gross and/or microscopic examination of the described specimens and rendered or confirmed the above diagnosis. Specimen(s) Received: A. ?Lt base (#1) B. ?Lt mid (#2) C. ?Lt apex (#3) D. ?Rt base (#4) E. ?Rt mid (#5) F. ?Rt apex (#6) Clinical History: ? (-) Bx for APSA 7.3; PSA now 10.9; (-) ..; for bx; R/O CAP Gross Description: ? Received in formalin labelled [place] and Lt base is a cylindrically shaped huerta-white fragment of tissue which measures 1.6 cm in length and 0.1 cm in diameter. The specimen is submitted intact as (A). Received in formalin labelled [place] and Lt mid are two huerta-white cylindrically shaped fragments of tissue which vary in length from 1.1 cm to 0.4 cm and have an average diameter of 0.1 cm. ??The specimen is submitted intact as (B). Received in formalin labelled [place] and Lt apex is a huerta-white focally hyperemic cylindrically shaped piece of tissue which measures 1.6 cm in length and 0.1 cm in diameter. ??The specimen is submitted intact as (C). Received in formalin labelled [place] and Rt base is a huerta-white cylindrically shaped fragment of tissue which measures 1.3 cm in length and 0.1 cm in diameter. ??The specimen is submitted intact as (D). Received in formalin labelled [place] and Rt mid is a huerta-white cylindrically shaped fragment of tissue which measures 1.1 cm in length and 0.1 cm in diameter. ??The specimen is submitted intact as (E). Received in formalin labelled [place] and Rt apex is a huerta-white cylindrically shaped object which measures 1.5 cm in length and 0.1 cm in diameter. ??The specimen is submitted intact as (F). ??(Soraya Martinez)/[facility] End of Report LEILANI GANDHI 10/23/2000 10/23/2000 15: 41 EST us Amairani Bernal MD PATHOLOGY ORDERABLES Final Re sult LEILANI GANDHI [address] [place] [address] documented in this encounter Visit Diagnoses Not on filedocumented in this encounter Care Teams Cake Inspector Relationship Specialty Start Date End Date Unknown, Provider, PCP - General 12/23/08 06/23/15 documented as of this encounter
--- OUTSIDE RECORDS SUMMARY | 2024-07-13 12:09 | XMS_ITS | Encounter Summary ---
Author Organization [facility] Address [facility] [address] Care Team Providers Care Glass Sander Name Role Phone Analia Deras MD Primary Care Provider [phone] Encounter Details Date Type Department Care Team (Latest Contact Info) Description 09/19/2010 6:56 AM EST - 09/19/2010 9:40 AM EST Hospital Encounter [place] [address] Everett Ramos MD [facility] [place] [address] Discharge Disposition: Home Social History Tobacco Use [...] on filedocumented in this encounter Care Teams Glass Sander Relationship Specialty Start Date End Date Analia Deras MD [address] [place] [address] PCP - General 07/11/10 documented as of this encounter
--- OUTSIDE RECORDS SUMMARY | 2024-07-13 12:09 | XMS_ITS | Encounter Summary ---
Author Organization [facility] Address [address] [place] [address] Care Team Providers Care Health Advocate Name Role Phone Analia Deras MD Primary Care Provider [phone] Encounter Details Date Type Department Care Team (Late st Contact Info) Description 07/07/2021 Lab Requisition [facility] Pathology & Laboratory Medicine - [address] [phone] Outr Resulting Lab, Provider Social History Tobacco [...] Associated Diagnosis Comments PSA TOTAL, DIAGNOSTIC Routine 07/07/2021 8:21 EST documented in this encounter Results * PSA TOTAL, DIAGNOSTIC (07/07/2021 8:21 EST) PSA <0.1 0.0 - 6.5 ng/mL 07/07/2021 22:49 EST [facility] Blood VENOUS BLOOD / Unknown 07/07/2021 8:21 EST 07/07/2021 21:19 EST Narrative [facility] - 07/07/2021 22:49 EST NOTE: Serum PSA concentration should not be interpreted as absolute evidence for the presence or absence of malignant disease. Assayed on Siemens ADVIA Centaur XPT using chemiluminescent technology.??Values obtained by using different assay methods cannot be used interchangeably. us Provider Outr Resulting Lab CHEMISTRY & BLOOD GA S ORDERABLES Final Result [facility] [address] [place] [address] documented in this encounter Visit Diagnoses Not on filedocumented in this encounter Care Teams Health Advocate Relationship Specialty Start Date End Date Analia Deras MD [address] [place] [phone] PCP - General 06/24/15 documented as of this encounter
--- OUTSIDE RECORDS SUMMARY | 2024-07-13 12:09 | XMS_ITS | Continuity of Care Document ---
Author Organization [facility] Address [address] [place] [phone] Encounter LTTL_AL FIN NBR [id number] Date(s): 06/07/22 - 06/07/22 [facility] [address] [place] [address]- Encounter Diagnosis Acid reflux(Discharge Diagnosis) - 06/07/22 Encounter for diagnostic colonoscopy due to change in bowel habits(Discharge Diagnosis) - 06/07/22 Ascites(Discharge Diagnosis) - 06/07/22 Discharge Disposition: Home f/u External Provider Attending Physician: Wellington Loving MD Admitting Physician: Wellington Loving MD Referring Physician: Wellington Loving MD Allergies, Adverse Reactions, Alerts Substance Reaction Severity Status sulfa drugs Unknown Active Assessment and Plan Future Appointments Functional Status 06/07/22 ADLs Independent Other exposure to Infectious Disease Non e 06/06/22 Living Situation Home independently Medications gabapentin 300 mg oral capsule 300 [...] List Condition Confirmation Course Effective Dates Status Health St [facility] Informant Acid reflux Confirmed Active Chronic pain Confirmed Active GERD - Gastro-esophageal reflux disease Confirmed Active Headache Confirmed Active Prostate cancer Confirmed Active Procedures Procedure Date Related Diagnosis Body Site Status EGD AND COLONOSCOPY WITH BIOPSY 1 06/07/22 Completed Appendectomy Completed Colonoscopy Completed Prostatectomy Completed 1auto-populated from documented surgical case Vital Signs Most recent to oldest [Reference Range]: 1 2 3 Temperature Temporal Artery [36-38 Deg C] 36.4 Deg C (06/07/22 1:30 PM) 36.5 Deg C (06/07/22 1:13 PM) 37.4 Deg C (06/07/22 11:46 AM) Temperature Temporal Artery (DegF) [97.3-100 Deg F] 97.52 Deg F (06/07/22 1:30 PM) 97.7 Deg F (06/07/22 1:13 PM) Peripheral Pulse Rate [60-100 bpm] 69 bpm (06/07/22 1:30 PM) 34 bpm *LOW* (06/07/22 1:15 PM) 39 bpm *LOW* (06/07/22 1:13 PM) Respiratory Rate [12-24 br/min] 18 br/min (06/07/22 1:30 PM) 16 br/min (06/07/22 11:46 AM) Blood Pressure [90-140/60-90 mmHg] 132/80mmHg (06/07/22 1:30 PM) 117/78mmHg (06/07/22 1:15 PM) 100/71mmHg (06/07/22 1:13 PM) Mean Arterial Pressure, Cuff [65-140 mmHg] 97 mmHg (06/07/22 1:30 PM) 91 mmHg (06/07/22 1:15 PM) 81 mmHg (06/07/22 1:13 PM) Mean Arterial Pressure Cuff 97 mmHg (06/07/22 1:30 PM) 92 mmHg (06/07/22 1:15 PM) 81 mmHg (06/07/22 1:13 PM) Blood Pressure Location Left arm (06/07/22 1:30 PM) Left arm (06/07/22 1:13 PM) Blood Pressure Method Automatic (06/07/22 1:30 PM) Automatic (06/07/22 1:13 PM) Weight 69.850 kg (06/06/22 12:43 PM) Weight Dosing 69.850 kg (06/06/22 12:43 PM) Height 172.720 cm (06/06/22 12:43 PM) Height/Length Dosing 172.720 cm (06/06/22 12:43 PM) Social History Social History Type Response Tobacco Former tobacco user Tobacco Use:. Sex Hospital Discharge Instructions Patient Education 06/07/2022 12:14:01 Upper Endoscopy, Adult, Care After Upper Endoscopy, Adult, Care After This sheet gives you information about how to care for yourself after your procedure. Your health care provider may also give you more specific instructions. If you have problems or questions, contact your health care provider. What can I expect after the procedure? After the procedure, it is common to have: ??? A sore throat. ??? Mild stomach pain or discomfort. ??? Bloating. ??? Nausea. Follow these instructions at home: ??? Follow instructions from your health care provider about what to eat or drink after your procedure. ??? Return to your normal activities as told by your health care provider. Ask your health care provider what activities are safe for you. ??? Take cpqt-mpc-hvjaenu and prescription medicines only as told by your health care provider. ??? If you were given a sedative during the procedure, it can affect you for several hours. Do not drive or operate machinery until your health care provider says that it is safe. ??? Keep all follow-up visits as told by your health care provider. This is important. Contact a health care provider if you have: ??? A sore throat that lasts longer than one day. ??? Trouble swallowing. Get help right away if: ??? You vomit blood or your vomit looks like coffee grounds. ??? You have: ??? A fever. ??? Bloody, black, or tarry stools. ??? A severe sore throat or you cannot swallow. ??? Difficulty breathing. ??? Severe pain in your chest or abdomen. Summary ??? After the procedure, it is common to have a sore throat, mild stomach discomfort, bloating, andnausea. ??? If you were given a sedative during the procedure, it can affect you for several hours. Do not drive or operate machinery until your health care provider says that it is safe. ??? Follow instructions from your health care provider about what to eat or drink after your procedure. ??? Return to your normal activities as told by your health care provider. This information is not intended to replace advice given to you by your health care provider. Make sure you discuss any questions you have with your health care provider. Document Revised: 08/02/2020 Document Reviewed: 01/05/2019 [employer] Patient Education ?? 2021 [employer] 06/07/2022 12:14:00 Colonoscopy, Adult, Care After Colonoscopy, Adult, Care After This sheet gives you information about how to care for yourself after your procedure. Your health care provider may also give you more specific instructions. If you have problems or questions, contact your health care provider. What can I expect after the procedure? After the procedure, it is common to have: ??? A small amount of blood in your stool for 24 hours after the procedure. ??? Some gas. ??? Mild cramping or bloating of your abdomen. Follow these instructions at home: Eating and drinking ??? Drink enough fluid to keep your urine pale yellow. ??? Follow instructions from your health care provider about eating or drinking restrictions. ??? Resume your normal diet as instructed by your health care provider. Avoid heavy or fried foods that are hard to digest. Activity ??? Rest as told by your health care provider. ??? Avoid sitting for a long time without moving. Get up to take short walks every 1???2 hours. This is important to improve blood flow and breathing. Ask for help if you feel weak or unsteady. ??? Return to your normal activities as told by your health care provider. Ask your health care provider what activities are safe for you. Managing cramping and bloating ??? Try walking around when you have cramps or feel bloated. ??? Apply heat to your abdomen as told by your health care provider. Use the heat source that your health care provider recommends, such as a moist heat pack or a heating pad. ??? Place a towel between your skin and the heat source. ??? Leave the heat on for 20???30 minutes. ??? Remove the heat if your skin turns bright red. This is especially important if you are unable to feel pain, heat, or cold. You may have a greater risk of getting burned. General instructions ??? If you were given a sedative during the procedure, it can affect you for several hours. Do not drive or operate machinery until your health care provider says that it is safe. ??? For the first 24 hours after the procedure: ??? Do not sign important documents. ??? Do not drink alcohol. ??? Do your regular daily activities at a slower pace than normal. ??? Eat soft foods that are easy to digest. ??? Take enwt-rsa-agcltki and prescription medicines only as told by your health care provider. ??? Keep all follow-up visits as told by your health care provider. This is important. Contact a health care provider if: ??? You have blood in your stool 2???3 days after the procedure. Get help right away if you have: ??? More than a small spotting of blood in your stool. ??? Large blood clots in your stool. ??? Swelling of your abdomen. ??? Nausea or vomiting. ??? A fever. ??? Increasing pain in your abdomen that is not relieved with medicine. Summary ??? After the procedure, it is common to have a small amount of blood in your stool. You may also have mild cramping and bloating of your abdomen. ??? If you were given a sedative during the procedure, it can affect you for several hours. Do not drive or operate machinery until your health care provider says that it is safe. ??? Get help right away if you have a lot of blood in your stool, nausea or vomiting, a fever, or increased pain in your abdomen. This information is not intended to replace advice given to you by your health care provider. Make sure you discuss any questions you have with your health care provider. Document Revised: 07/29/2020 Document Reviewed: 02/29/2020 [employer] Patient Education ?? 2021 [employer] Follow Up Care 05/25/2022 17:00:57 With:Return to this practice Address:Unknown When:1 month
--- OUTSIDE RECORDS SUMMARY | 2024-07-13 12:09 | XMS_ITS | Encounter Summary ---
Author Organization [facility] Address [address] [place] [address] Care Team Providers Care Suit Attendant Name Role Phone Unknown, Provider Primary Care Provider Unava ilable Encounter Details Date Type Department Care Team (Late st Contact Info) Description 11/21/2004 Results Only [facility] - Maple conversion [address] [place] [address] Compa Ellison MD [address] [place] [phone] Social History Tobacco Use Types Packs/Day Years [...] Date/Time Associated Diagnosis Comments SURGICAL PATHOLOGY Routine 11/21/2004 0:00 EDT documented in this encounter Results * SURGICAL PATHOLOGY (11/21/2004 0:00 EDT) Pathology Report: SURGICAL PATHOLOGY REPORT Reports generated via electronic interface contain original data; however they are lacking the format of the original report. Caution should be taken when reading/interpreti ng unformatted reports. Name: ? CALLUM ATWOOD ? Accession #: ? [id number] ? : ? 1940 (Age: 64) ??M ? Collect Date: ? 11/21/2004 ? Location: ? [facility] ? Receive Date: ? 11/21/2004 ? Provider: FARNAZ ELLISON MD Copy to: SOFÍA ADKINS MD ? Final Pathologic Diagnosis: ? Inguinal hernia sac, left, excision: - ??Mesothelial lined fibromembranous tissue with focal fibrosis, consistent with hernia sac. ?? Document reviewed and electronically signed by: DESHAWN HARPER [facility] Report ??Date: 11/23/2004 14:36 By the signature above, the attending physician certifies that he/she has personally conducted a gross and/or microscopic examination of the described specimens and rendered or confirmed the above diagnosis. Specimen(s) Received: ? Indirect left inguinal hernia sac Clinical History: ? Indirect left inguinal hernia Gross Description: ? Received in formalin labelled [place] and indirect left inguinal hernia sac is a portion of smooth-lined, fibromembranous tissue with a variable amount of attached lobular adipose tissue. ??The specimen measures 3.0 x 0.7 x 0.6 cm. The specimen contains a smooth-lined lumen which admits a probe approximately 75% of its length. ??The specimen is bisected and submitted entirely in one cassette. ??(Dr. Irby)/[facility] End of Report LEILANI GANDHI 11/21/2004 11/21/2004 15: 04 EDT us Compa Ellison MD PATHOLOGY ORDERABLES Final Res ult LEILANI GANDHI [address] [place] [address] documented in this encounter Visit Diagnoses Not on filedocumented in this encounter Care Teams Suit Attendant Relationship Specialty Start Date End Date Unknown, Provider, PCP - General 12/23/08 06/23/15 documented as of this encounter
--- OUTSIDE RECORDS SUMMARY | 2024-07-13 12:09 | XMS_ITS | Encounter Summary ---
Author Organization [facility] Address [facility] [place] [address] Care Team Providers Care Mica Patcher Name Role Phone Analia Deras MD Primary Care Provider [phone] Encounter Details Date Type Department Care Team (Late st Contact Info) Description 09/19/2010 7:00 AM EST Procedure [place] [phone] Everett Ramos MD [facility] [place] [address] Social History Tobacco Use Types Packs/Day Years Used Date Smoking Tobacco: Never Assessed Sex and Gender Information Value Date Recorded Sex Assigned at Not on file Gender Identity Not on file Sexual Orientation Not on file documented as of this encounter Plan of Treatment Not on file documented as of this encounter Visit Diagnoses Not on filedocumented in this encounter Care Teams Mica Patcher Relationship Specialty Start Date End Date Analia Deras MD [facility] [address] [place] [address] PCP - General 07/11/10 documented as of this encounter
--- OUTSIDE RECORDS SUMMARY | 2024-07-13 12:09 | XMS_ITS | Encounter Summary ---
Author Organization [facility] Address [address] [place] [address] Care Team Providers Care Technical Maintenance Technician Name Role Phone Analia Deras MD Primary Care Provider [phone] Encounter Details Date Type Department Care Team (Late st Contact Info) Description 06/08/[address] [facility] [place] [facility] - [facility] [place] [address] [place] [address] [phone] Wellington Loving MD [address] [place] [phone] Gastro-esophageal reflux disease without esophagitis; Change in bowel habit; Other ascites Social History Tobacco Use Types Packs/Day Years [...] Priority Date/Time Associated Diagnosis Comments SURGICAL PATHOLOGY Today 06/07/2022 12 :29 EDT Gastro-esophageal reflux disease without esophagitis Change in bowel habit Other ascites documented in this encounter Results * SURGICAL PATHOLOGY (06/07/2022 12:29 EDT) Note to Patient The following pathology results have been interpreted by your pathologist and may be available to you before your health provider has had the opportunity to review them. Please allow time for your provider to receive these results and explore management options, if applicable. 06/11/2022 11:51 [facility] Final Diagnosis A. DUODENUM, BIOPSY: - Fragments of duodenal mucosa with no significant histopathologic abnormalities. B. DUODENAL BULB, BIOPSY: - Fragments of duodenal mucosa with patchy peptic change and scant cystically dilated glands. C. GASTRIC ANTRUM, BIOPSY: - Fragments of antral type mucosa with patchy, mild chronic gastritis. - No Helicobacter-like microorganisms identified on routine stained sections. D. GASTRIC BODY, BIOPSY: - Fragments of body type mucosa with scattered cystically dilated fundic glands. - No Helicobacter-like microorganisms identified on routine stained sections. E. GASTROESOPHAGEAL JUNCTION, BIOPSY: - Fragments of squamocolumnar junction mucosa with inflammation and reactive changes. - No intestinal metaplasia. 06/11/2022 11:51 [facility] Attestation By the signature below, the attending physician certifies that they have 1) personally conducted a gross and/or microscopic examination of the described specimen(s), and/or personally interpreted the results of laboratory testing of the described specimen(s), and 2) personally rendered or confirmed the above diagnosis. 06/11/2022 11:51 [facility] at 1151 Clinical History gerd, screening 06/11/2022 11:51 [facility] Gross Description A. Received in formalin labeled ? Callum D. Reyes? and ? duodenum Bx? are 3 mucosal tissue fragments ranging in size from 0.1 x 0.1 x 0.1 cm up to 0.2 x 0.1 x 0.1 cm. Entirely submitted in A1. B. Received in formalin labeled ? Callum D. Reyes? and ? duodenal bulb? are 2 mucosal tissue fragments each measuring 0.2 x 0.1 x 0.1 cm. Entirely submitted in B1. C. Received in formalin labeled ? Callum D. Reyes? and gastric antrum? are 2 mucosal tissue fragments measuring 0.2 x 0.1 x 0.1 cm and 0.3 x 0.2 x 0.2 cm. Entirely submitted in C1. D. Received in formalin and labeled ? Callum D. Reyes? and ? gastric body Bx? are 3 mucosal tissue fragments ranging in size from less than 0.1 cm up to 0.4 x 0.2 x 0.1 cm. Entirely submitted in D1. E. Received in formalin labeled ? Callum Ulysses Meansley? and ? GE junction? are 2 mucosal tissue fragments measuring 0.2 x 0.1 x 0.1 cm and 0.3 x 0.2 x 0.1 cm. Entirely submitted in E1. GEORGINA SOUSASOM 06/08/2022 13:16 06/11/2022 11:51 EDT [facility] Performing Lab [facility] 11:51 EDT [facility] Scanned Images 06/11/2022 11:51 EDT [facility] Tissue ENTIRE ESOPHAGO-AMEE MARILEE MUCOSAL JUNCTION / Unknown 06/07/2022 12:29 EDT 06/08/2022 7:42 EDT Tissue specimen (specimen) DUODENAL AMPULLA STRUCTURE / Unknown 06/07/2022 12:29 EDT 06/08/2022 7:42 EDT Tissue specimen (specimen) PYLORIC ANTRUM STRUCTURE / Unknown 06/07/2022 12:29 EDT 06/08/2022 7:42 EDT Tissue specimen (specimen) GASTRIC CORPUS STRUCTURE / Unknown 06/07/2022 12:29 EDT 06/08/2022 7:42 EDT Tissue specimen (specimen) CARDIOESOPHAGEAL JUNCTION STRUCTURE / Unknown 06/07/2022 12:29 EDT 06/08/2022 7:42 EDT Wellington Loving MD PATHOLOGY ORDERABLES Final Result [facility] [address] [place] [address] documented in this encounter Visit Diagnoses Diagnosis Gastro-esophageal reflux disease without esophagitis Esophageal reflux Change in bowel habit Other ascites documented in this encounter Care Teams Technical Maintenance Technician Relationship Specialty Start Date End Date Analia Deras MD [address] [place] [phone] PCP - General 06/24/15 documented as of this encounter
--- OUTSIDE RECORDS SUMMARY | 2024-07-13 12:09 | XMS_ITS | Encounter Summary ---
Author Organization [facility] Address [facility] [place] [address] Care Team Providers Care Sonar Watchstander Name Role Phone Analia Deras MD Primary Care Provider [phone] Encounter Details Date Type Department Care Team (Late st Contact Info) Description 10/31/2010 Orders [place] [phone] Everett Ramos MD [facility] [place] [address] Social History Tobacco Use Types Packs/Day Years [...] EDT documented in this encounter Results * Surgical Pathology Report (10/31/2010 10:25 AM EDT) Surgical Pathology Report [id number] ? Location: 4T The signing pathologist has (i) examined the relevant preparation(s) for the specimen(s) and (ii) rendered or confirmed the diagnosis(es). . ?Pathology Surgical Pathology Final Report Clinical Information Specimen Submitted: A - Bx, GE jct B - Bx polyps, stomach Clinical History: Irregular X line - R/O short segment Pradhan's gastric polyps Clinical Diagnosis: Dyspepsia/upper abd pain Gross Description A - Labeled/Fixativ e: BX GE junction, formalin. Qty/Size/Weight : ?Two, ranging from 0.1 cm to 0.2 cm in ?greatest dimension. Tissue Description: ?? Soft, huerta tissues. Sections/Proces sing: ??(T1) B - Labeled/Fixativ e: BX polyps, stomach; formalin. Qty/Size/Weight : ?Two, averaging 0.3 x 0.3 x 0.2 cm. Tissue Description: ?? Soft, huerta tissues. Sections/Proces sing: ??(T1) ??aje/EJR Microscopic Description Slides reviewed, microscopic description not recorded. Diagnosis Endoscopic biopsies - A. Squamous esophageal and mild cardiac mucosa with chronic nonspecific gastritis. ??Negative for specialized metaplasia (Alcian blue stain). B. Gastric fundic gland polyps. CR-0 11/01/10 [facility] 11/01/10 Verified by: ? Bernard Kapoor MD ?Pathologist ?(Electronic Signature) The attending pathologist whose signature appears on this report has reviewed all diagnostic slides and has edited the gross and/or microscopic portion of the report in rendering the final pathologic diagnosis. SKYE SPEARS 10/31/2010 10:2 5 AM EDT Everett Ramos MD PATHOLOGY/CYTOLOGY O RDERABLES SKYE SPEARS documented in this encounter Visit Diagnoses Not on filedocumented in this encounter Care Teams Sonar Watchstander Relationship Specialty Start Date End Date Analia Deras MD [facility] [address] [place] [address] PCP - General 07/11/10 documented as of this encounter
--- OUTSIDE RECORDS SUMMARY | 2024-07-13 12:09 | XMS_ITS | Encounter Summary ---
Author Organization [facility] Address [address] [place] [address] Care Team Providers Care Historical Society Director Name Role Phone Analia Deras MD Primary Care Provider [phone] Encounter Details Date Type Department Care Team (Late st Contact Info) Description 01/23/2024 Lab Requisition [facility] Pathology & Laboratory Medicine - [address] [address] Outr Resulting Lab, Provider Social History Tobacco [...] Procedure Name Priority Date/Time Associated Diagnosis Comments FECAL BACTERIAL PATHOGENS BY PCR Routine 01/23/2024 11:37 EDT documented in this encounter Results * FECAL BACTERIAL PATHOGENS BY PCR (01/23/2024 11:37 EDT) Salmonella PCR Negative Negative 01/23/2024 20:31 EDT [facility] Shigella/Enteroin vasive E. coli Negative Negative 01/23/2024 20:31 EDT [facility] HN LAB CAMPYLOBACTER PCR Negative Negative 01/23/2024 20:31 EDT [facility] Shiga Toxin PCR Negative Negative 20:31 EDT [facility] Feces SPECIMEN FROM RECTUM / Unknown 01/23/2024 11:37 EDT 01/23/2024 16:51 EDT us Provider Outr Resulting Lab MICROBIOLOGY - GENER AL ORDERABLES Final Result [facility] [address] [place] [address] documented in this encounter Visit Diagnoses Not on filedocumented in this encounter Care Teams Historical Society Director Relationship Specialty Start Date End Date Analia Deras MD [address] [place] [phone] PCP - General 06/24/15 documented as of this encounter
--- OUTSIDE RECORDS SUMMARY | 2024-07-13 12:09 | XMS_ITS | Encounter Summary ---
Author Organization [facility] Address [address] [place] [address] Care Team Providers Care Office Workforce Planner Name Role Phone Unknown, Provider Primary Care Provider Unava ilable Encounter Details Date Type Department Care Team (Late st Contact Info) Description 12/23/2003 Results Only [facility] [address] [place] [address] Compa Ellison MD [address] [place] [phone] Social History Tobacco Use Types Packs/Day Years [...] Date/Time Associated Diagnosis Comments SURGICAL PATHOLOGY Routine 12/23/2003 0:00 EDT documented in this encounter Results * SURGICAL PATHOLOGY (12/23/2003 0:00 EDT) Pathology Report: SURGICAL PATHOLOGY REPORT Reports generated via electronic interface contain original data; however they are lacking the format of the original report. Caution should be taken when reading/interpretin g unformatted reports. Name: ? CALLUM ATWOOD ? Accession #: ? [id number] ? : ? 1940 (Age: 63) ??M ? Collect Date: ? 12/23/2003 ? Location: ? [facility] ? Receive Date: ? 12/23/2003 ? Provider: FARNAZ ELLISON MD Copy to: SOFÍA ADKINS MD ? Final Pathologic Diagnosis: ? Gastroesophageal junction, biopsy: 1. ?Mucosa of the squamocolumnar junctional with rare intraepithelial eosinophils consistent with reflux esophagitis. 2. ?No goblet cell intestinal metaplasia identified. Document reviewed and electronically signed by: JOANNE SOSA MD Report ??Date: 12/27/2003 15:59 By the signature above, the attending physician certifies that he/she has personally conducted a gross and/or microscopic examination of the described specimens and rendered or confirmed the above diagnosis. Specimen(s) Received: ? GE junction Clinical History: ? GERD Gross Description: ? Received in Hollande's fixative labeled [place] and GE junction are three huerta-pink, irregular soft tissue fragments averaging 0.2 x 0.2 x 0.2 cm. The specimen is entirely submitted in one cassette. ??(Juan Pablo Vizcarra)/[facility] End of Report [facility]IL[facility] G[facility]HI 12/23/2003 12/23/2003 15: 24 EDT us Compa Ellison MD PATHOLOGY ORDERABLES Final Res ult LEILANI GANDHI [address] [place] [address] documented in this encounter Visit Diagnoses Not on filedocumented in this encounter Care Teams Office Workforce Planner Relationship Specialty Start Date End Date Unknown, Provider, PCP - General 12/23/08 06/23/15 documented as of this encounter
[2024-07-13 17:07] LABS: Vitamin B12 1307 pg/mL (193-986)
[2024-07-13 17:10] LABS: Folate > 20.0 ng/mL (8.6-20.0)
[2024-07-13 17:46] LABS: Hemoglobin A1C 6.1 % (<5.7)
[2024-07-14 12:17] LABS: Albumin 62.4 % (55.8-66.1); Albumin g/dL 4.4 g/dL (3.6-5.2)
== END 2024-07-13 12:08 | disposition home or self-care (01) ==
LOC: NCHCN 12:07
PROVIDERS: PCP Family Medicine; Visit Provider Family Medicine
DX: R20.2 Paresthesia of skin (principal)
CPT/HCPCS: 82607; 82746; 83036; 84165

== ENCOUNTER 2025-01-15 16:36 | Outpatient (REF) | payer MEDICARE, SELFPAY ==
[2025-01-15 22:11] LABS: Hemoglobin A1C 5.8 % (<5.7)
[2025-01-18 12:35] LABS: PSA, Screening <0.1 ng/mL (<=6.5)
== END 2025-01-15 16:37 | disposition home or self-care (01) ==
LOC: NCHCN 16:36
PROVIDERS: PCP Family Medicine; Visit Provider Family Medicine
DX: R73.03 Prediabetes (principal); Z12.5 Encounter for screening for malignant neoplasm of prostate
CPT/HCPCS: 84153; 83036

== ENCOUNTER 2025-03-20 14:41 | Emergency (ER) | payer MEDICARE, SELFPAY ==
[2025-03-20] VITALS (30 sets, daily range): BP systolic 148–197; BP diastolic 61–99; PULSE 65–91; RESP 13–24; TEMP 36.9; O2SAT 95–99
--- NOTE | 2025-03-20 14:30 | RT.EKG_ITS ---
APPROVED REPORT Exam: Resting ECG Reason for Exam: chest pain Patient Location: E HR:68 bpm ECG Measurements Heart Rate 68 AXIS RI 195 P 75 QRSd 97 QRS 61 QT 409 T 66 QTc 434 Conclusion Sinus rhythm...normal P axis, V-rate 60- 99 Consider anteroseptal infarct...Q >30mS, dimin R, V1-V2 Normal sinus rhythm normal axis normal intervals no acute ischemic changes
--- NOTE | 2025-03-20 15:00 | DI.RAD_ITS ---
Exam(s) XR CHEST 2V PA LATERAL EXAM: XR CHEST 2V PA LATERAL CLINICAL HISTORY: dizziness. TECHNIQUE: 2D digital imaging was performed. COMPARISON: CT CT ABDOMEN PELVIS W from 01/23/2024 FINDINGS: 2 views: Heart size is normal. The mediastinum is not widened. Elevated left hemidiaphragm noted which is not a new finding. There is some mild atelectasis in left lung base adjacent to the elevated left hemidiaphragm. Remainder of the left lung is clear. There is a small right pleural effusion noted with blunting of the right costophrenic angle. IMPRESSION: Small right pleural effusion. Moderately elevated left hemidiaphragm which is not a new finding. DATA REPOSITORY: RADIATION DOSE DELIVERED:
--- NOTE | 2025-03-20 15:13 | W.ED.GENAD ---
Discharge Plan Disposition Patient Disposition: Home Condition: Improving Discharge Details Clinical Impression: Dizziness Primary Care Provider: Analia Deras ED Provider: Herbie Ray Home Meds and New Rx's Prescriptions: No Action aspirin 81 mg tablet 81 mg PO DAILY hydrocodone-acetaminophen 1 TAB tablet 1 tab PO . Q6HR PRN PRN lansoprazole 30 MG capsule,delayed release(DR/EC) 1 tab PO DAILY folic acid 1 mg tablet 1 mg PO DAILY Patient Comments: TAKE ONE TABLET BY MOUTH EVERY DAY mirtazapine 7.5 mg tablet 7.5 mg PO QHS Patient Comments: TAKE ONE TABLET BY MOUTH AT BEDTIME Discharge Instructions Instructions: Dizziness, Adult ED Additional Instructions: Be sure to stay hydrated. Please follow-up with your primary care physician. Return to the emergency department for any worsening symptoms HPI General Date/Time Provider Initiated Documentation: 03/20/25 14:42. HPI Narrative: 84-year-old male presents brought in by daughter for evaluation of dizziness and generalized fatigue over the last 2 days, does have history of prior dehydration, denies history of intracranial hemorrhage blood thinner use thromboembolic disease or coronary disease, denies history of stroke, patient denies chest pain or shortness of breath denies nausea or vomiting, does feel slightly dry. Has been taking mirtazapine over the last couple of months to help with sleep. Related Data Home Medications ?Medication ?Instructions ?Recorded ?Confirmed hydrocodone 5 mg-acetaminophen 325 1 tab PO . Q6HR PRN PRN 12/22/14 03/20/25 mg tablet lansoprazole 30 mg capsule,delayed 1 tab PO DAILY 12/22/14 03/20/25 release aspirin 81 mg tablet 81 mg PO DAILY 02/01/21 03/20/25 Held on 01/25/24. Instructions: Resume on 01/31/24. As per PCP folic acid 1 mg tablet 1 mg PO DAILY 01/23/24 03/20/25 mirtazapine 7.5 mg tablet 7.5 mg PO QHS 03/20/25 03/20/25 Allergies Allergy/AdvReac Type Severity Reaction Status Date / Time Sulfa (Sulfonamide AdvReac Intermediate Hives Unverified 03/20/25 14:51 Antibiotics) General Stated Complaint: Dizzy/Sync TUNDE: 3 Exam Narrative Exam Narrative: General: alert, no acute distress HEENT: normocephalic, atraumatic, neck supple, pupils equal round reactive to light, slightly dry oral mucosa, tolerating secretions, normal voice, no rhinorrhea or otorrhea Respiratory: normal respiratory effort, lungs clear bilaterally, no wheezes rales or rhonchi Cardiac: regular rate and rhythm, no murmurs rubs or gallops; equal pulses bilaterally, warm well perfused Abdominal: soft, nontender, nondistended; no organomegaly or palpable masses MSK: normal range of motion of extremities, warm, well perfused Skin: warm, dry, no rashes or lesions, decreased skin turgor Neuro: AAOx3, CN II-XII intact, 5/5 strength bilateral upper and lower extremities, normal speech, no ataxia Psych: normal mood, normal affect, calm, cooperative Course Vital Signs Vital signs: Vital Signs Temperature 36.9 C 03/20/25 14:42 Pulse 70 03/20/25 14:42 Respiratory Rate 18 03/20/25 14:42 Blood Pressure 153/87 H 03/20/25 14:42 Temperature 36.9 C 03/20/25 14:42 Pulse 70 03/20/25 14:42 Respiratory Rate 19 03/20/25 14:57 Respiratory Effort Normal, Non-Labored 03/20/25 14:57 Respiratory Depth Normal 03/20/25 14:57 Respiratory Pattern Normal 03/20/25 14:57 Blood Pressure 153/87 H 03/20/25 14:42 Medical Decision Making 84-year-old male history of dehydration in the past presents with family for dizziness and fatigue over the last 2 days, hemodynamically stable afebrile nontoxic, alert oriented interactive GCS of 15 5-5 strength upper and lower extremities bilaterally normal speech cranial nerves II through XII intact no ataxia ambulatory with assistance of cane, does have some drying of oromucosa and has some decrease skin turgor, consider dehydration versus electrolyte derangement low suspicion for CVA ACS PE or aortic pathology, lower sufficient for infection given no focal signs of infection afebrile nontachycardic, trial of light fluids basic labs will obtain CT CTA head neck given patient's age and sensation of dizziness although stroke less likely, disposition pending reassessment 17: 01 labs imaging largely unremarkable, chronically appearing left hemidiaphragm elevation, mild right pleural effusion, CT CTA head and neck showing chronic age-related changes; patient feeling improved after IV fluids, will ambulate if successful will discharge home 17: 44 resting notably feeling much better after fluids. Ambulatory without assistance. Patient will follow-up closely with primary care, family here to take him home [facility] All Active Problems (Updated 03/20/25 @ 17:46 by Herbie Ray MD) Dizziness (Acute) JERI (acute kidney injury) (Acute) Colitis (Acute) Acute hemorrhagic colitis (Acute) Acute GI bleeding (Acute) Dysarthria (Acute) Essential tremor (Acute) Cervical radiculitis (Acute) Medical History Achilles tendinitis, right leg Alcohol abuse, in remission Personal history of prostate cancer Erectile dysfunction GERD (gastroesophageal reflux disease) Chronic low back pain Sciatica, left side Hammer toe of left foot Hyperlipidemia Surgical History S/P TURP S/P hernia repair Social History Smoking/Tobacco Use Status: Former Tobacco Use Smoking risk assessment performed?: Yes Alcohol Intake: former Drug use: Never Substance use type: does not use Household members: spouse Housing: house Number of Children: 2 number of grandchildren: 3 current occupation: Retired Pets and animals: No Current gender identity: male What is your relationship status?: Panel score (0-1 are the most socially isolated patients): 1 What type of physical activity do you participate in: walking Duration: 30-45 minutes/day Frequency: 1-2 times per week Seatbelt use: sometimes Do you feel safe at home: Yes Do you feel safe in your relationship?: Yes
[2025-03-20] MEDS: Normal Saline 500 ML 1000 ML IV (15:18)
[2025-03-20 15:24] LABS: Abs Immature Grans 0.01 10^3/uL (0.0-0.06); HCT 41.3 % (40.0-50.0); HGB 13.7 g/dL (13.5-17.5); Immature Grans % 0.2 %; MCH 29.3 pg (27.0-33.0); MCHC 33.2 % (32.0-36.0); MCV 88 fL (80-95); MPV 9.8 fL (8.0-11.0); Platelet Count 171 10^3/uL (130-400); RBC 4.68 10^6/uL (4.36-5.78); RDW 13.2 % (11.8-14.1); RDW-SD 42.9 fL; WBC 4.72 10^3/uL (4.4-10.8)
[2025-03-20 15:39] LABS: INR 1.0 (0.9-1.1); PTT Activated 24.6 sec (20.6-30.2); Prothrombin Time 10.3 sec (9.1-11.1)
[2025-03-20 15:46] LABS: Troponin I 10 ng/L (<or=76)
[2025-03-20 15:50] LABS: ALT 26 U/L (16-63); AST 19 U/L (15-37); Albumin 4.0 g/dL (3.4-5.0); Alkaline Phosphatase 77 U/L (46-116); Anion Gap 7.4 mmol/L (3-11); BUN 18 mg/dL (7-18); Bilirubin, Total 0.5 mg/dL (0.2-1.0); CO2 29.6 mmol/L (21.0-32.0); Calcium 9.0 mg/dL (8.5-10.1); Chloride 104 mmol/L (98-107); Estimated GFR 67.02 (mL/min/1.73m2); Glucose 100 mg/dL (74-106); Potassium 4.5 mmol/L (3.5-5.1); Sodium 141 mmol/L (136-145); TSH (W/Ref FT4) 2.32 uIU/mL (0.36-3.74); Total Protein 6.9 g/dL (6.4-8.2)
[2025-03-20] MEDS: Normal Saline - Diluent 50 ML VIAL IJ (16:01)
[2025-03-20] MEDS: Omnipaque 350 MG/ML 100 ML BTL IJ (16:02)
--- NOTE | 2025-03-20 16:15 | DI.CT_ITS ---
Exam(s) CT BRAIN NECK CTA EXAM: CT BRAIN NECK CTA CLINICAL HISTORY: dizziness. TECHNIQUE: Imaging Protocol: Axial CT angiography was performed with multi- slice acquisition and multi-planar and/or 3D reconstructions. CONTRAST MATERIAL: Intravenous: Omnipaque 350 Contrast volume:70 mL COMPARISON: MR MR ANGIO BRAIN WO from 02/02/2021 MR MR BRAIN WO from 02/02/2021 FINDINGS: CTA Neck W: Aortic arch anatomy: The aortic arch anatomy is bovine configuration. There is no significant stenosis at the origin the great vessels off the aortic arch. Anterior circulation: Both common carotid arteries ascend with normal luminal diameters. There is some calcified and noncalcified plaque the level the left carotid bulb and proximal left ICA with approximately 10-20 percent stenosis. Left ICA in the upper neck is nicely patent. On the opposite-right side there is minimal if any significant plaque at the bulb and proximal right ICA. No significant stenosis and the right ICA in the upper neck exhibits normal diameter as well as in the skull base-carotid canal. Posterior circulation: Both vertebral arteries originate in conventional fashion off of the subclavian arteries and there is no obvious stenosis at the origin of the vertebral arteries. Both vertebral arteries exhibit normal luminal diameters within the foramen transversarium. The left vertebral artery is dominant. Both vertebral arteries contribute to the formation of the basilar artery at the skull base. CTA Brain W: Anterior circulation: Both internal carotid arteries are patent in the skull base-carotid canals as well as within the cavernous sinuses. The supraclinoid aspects of the ICAs are patent. The left A1 segment is again noted to be dominant and the right A1 segment is again noted to be atretic. Both anterior cerebral arteries are patent and there is no aneurysm at the level the anterior communicating artery. Both middle cerebral arteries are patent with no evidence of significant stenosis nor intraluminal thrombus. There also no aneurysms of these vessels. Posterior circulation: Basilar artery ascends without significant stenosis. Distally gives off patent bilateral superior cerebellar arteries. Above this level the basilar artery terminates as patent bilateral posterior cerebral arteries. There is no evidence of aneurysm at the tip of the basilar artery nor elsewhere in the [id number]. CT BRAIN: There is no evidence of intracranial hemorrhage, mass effect, or shift of midline structures. There are no extra-axial fluid collections. Ventricles are not enlarged or shifted. There are no ring enhancing lesions in the brain and no abnormal meningeal enhancement. There is mild periventricular hypodensity consistent with chronic small vessel disease. No acute infarct evident. IMPRESSION: 1. Patent carotid arteries in the neck. No hemodynamically significant stenosis. Mild plaque at the left carotid bifurcation-proximal left ICA with approximately 10-20 percent stenosis at this level. 2. Patent vertebral arteries. Left vertebral artery is dominant. 3. Patent intracranial arteries. Also no aneurysms nor evidence of vascular malformation in the brain. 4. No acute intracranial findings. Also no ring enhancing lesions in the brain and no abnormal meningeal enhancement. Report called by myself to ER physician 03/20/2025 at 4:45 p.m. RADIATION DOSE DELIVERED: 2,264.94mGy.cm Total DLP DATA REPOSITORY: All CT scans at this facility are submitted to the National Radiology Data Registry (NRDR) Dose Index Registry (DIR) with the [employer] (ACR). RADIATION OPTIMIZATION: All CT scans at this facility use at least one of these dose optimization techniques: automated exposure control; mA and/or kV adjustment per patient size (includes targeted exams where dose is matched to clinical indication); or iterative reconstruction.
[2025-03-20 16:18] LABS: Glucose Negative (Negative)
[2025-03-20 16:29] LABS: C & S Indicated? No; RBC 0-2 HPF (0-2); WBC Negative HPF (0-5)
[2025-03-20 16:52] LABS: Troponin I 11 ng/L (<or=76)
== END 2025-03-20 17:54 | disposition home or self-care (01) ==
PROVIDERS: Emergency Provider Emergency Medicine; PCP Family Medicine
DX: R42 Dizziness and giddiness (principal); R53.1 Weakness; E78.5 Hyperlipidemia, unspecified; Z79.82 Long term (current) use of aspirin; Z87.891 Personal history of nicotine dependence
CPT/HCPCS: 36415; 70496; 70498; 80053; 82962; 93005; 96360; 99285; 71046; 81003; 81015; 84443; 84484; 85025; 85610; 85730; 93010; 99284; J3490